=== PATIENT | male | born 1950 | race Caucasian/White ===

== ENCOUNTER 2017-12-06 20:33 | Observation (INO) | payer MEDICARE, OTHER ==
[2017-12-06] MEDS ORDERED: NA CHLORIDE 0.9% 1,000 ML ONE (21:34)
[2017-12-06 21:40] LABS: Absolute Lymphocytes (CBC) 1.6 K/uL (0.7-4.9); Absolute Monocytes 0.7 K/uL (0.1-1.3); Absolute Neutrophil 7.3 K/uL (1.8-8.0); Basophils % 0.9 % (0-1.3); Eosinophils % 1.3 % (0-4.4); Hematocrit 45.3 % (39.6-49.0); Lymphocytes % 16.4 % (15.3-44.8); MCH 29.4 pg (27.0-35.0); MCV 85.8 fL (80-100); MPV 7.4 fL (7.6-11.3); Monocytes % 7.4 % (3.3-12.3); RBC Red Blood Cell Count 5.28 M/uL (4.33-5.43)
[2017-12-06 21:59] LABS: Potassium 4.7 mEq/L (3.6-5.0)
[2017-12-06 22:05] LABS: Albumin 3.5 g/dL (3.2-5.5); Bilirubin Direct 0.4 mg/dL (0-0.2); Bilirubin Total 1.1 mg/dL (0.3-1.2); CKMB Creatine Kinase MB 1.4 ng/ml (0.3-4.0); Magnesium 2.1 mg/dL (1.8-2.5); Protein, Total 6.5 g/dL (6.0-8.3)
[2017-12-06] MEDS ORDERED: METRONIDAZOLE 500mg IVPB 500 MG/100 ML BAG IV ONE (22:23)
[2017-12-06] MEDS ORDERED: CEFTRIAXONE/SWI 1gm 1 GM/10 ML SYR ONE (22:23)
[2017-12-06] MEDS ORDERED: PANTOPRAZOLE 40 MG INJ ONE (22:23)
--- NOTE | 2017-12-06 22:45 | RAD REPORT ---
EXAM DESCRIPTION: RAD - Chest Single View - 12/06/2017 9:55 pm CLINICAL HISTORY: Abdominal pain, abdominal distention, chest pain COMPARISON: January 2017 TECHNIQUE: AP portable chest image was obtained 2148 hours . FINDINGS: No focal consolidation or mass identifiable. Lung markings are prominent but not clearly d ifferent from the comparison study. Heart and vasculature are normal. No pneumothorax or pleural effu arjun. Defibrillator is in place. No gross bony abnormality seen. No acute aortic findings suspected. IMPRESSION: No acute cardiopulmonary process. No significant change from the comparison study.
--- NOTE | 2017-12-06 22:57 | EDPHYS ---
Physician Documentation [facility] Name: Carlos Eduardo Macias Age: 67 yrs Sex: Male : 1950 Arrival Date: 12/06/2017 Time: 20:35 Bed 25 Private MD: ED Physician Leopoldo Fonseca HPI: 12/06 21:35 This 67 yrs old Male presents to ER via EMS with complaints of Abdominal Pain ken and rectal bleeding. 21:35 The patient presents with abdominal pain in the upper abdomen, in the lower abdomen. ken Onset: The symptoms/episode began/occurred 1 week(s) ago. The patient presents to the emergency department with rectal bleeding, a small amount, bright red blood with bowel movement, melena, with multiple such episodes. Onset: The symptoms/episode began/occurred 1 week(s) ago. Abdominal pain: located in the right upper quadrant, left upper quadrant, right lower quadrant and left lower quadrant. Modifying factors: The symptoms are alleviated by nothing, the symptoms are aggravated by nothing. Associated signs and symptoms: The patient has no apparent associated signs or symptoms. The symptoms do not radiate. Modifying factors: The symptoms are alleviated by nothing, the symptoms are aggravated by nothing. Historical: - Allergies: 20:41 PENICILLINS; fc - Home Meds: 20:41 aspirin 81 mg Oral TbEC 1 tab once daily [Active]; amiodarone 200 mg oral tab 1 tab fc once daily [Active]; pravastatin 80 mg oral tab 1 tab nightly [Active]; losartan 50 mg oral tab 1 tab once daily [Active]; Coreg 3.125 mg Oral tab 1 tab every 12 hours [Active]; 23:38 ezetimibe oral 10 MG oral 1 tab once daily [Active]; rk2 - PMHx: 20:41 High Cholesterol; Hypertension; Atrial Fib; CAD; fc - PSHx: 20:41 Cholecystectomy; Appendectomy; CABG; heart ablation; defib; fem pop; fc 23:38 extensive heart surgeries; rk2 - Immunization history:: Last tetanus immunization: up to date. - Social history:: Smoking status: Patient/guardian denies using tobacco, Patient uses alcohol, occasionally. - Family history:: not pertinent. ROS: 21:35 Constitutional: Negative for fever, chills, and weight loss, Eyes: Negative for injury, ken pain, redness, and discharge, ENT: Negative for injury, pain, and discharge, Neck: Negative for injury, pain, and swelling, Cardiovascular: Negative for chest pain, palpitations, and edema, Respiratory: Negative for shortness of breath, cough, wheezing, and pleuritic chest pain, Back: Negative for injury and pain, : Negative for injury, bleeding, discharge, and swelling, MS/Extremity: Negative for injury and deformity, Skin: Negative for injury, rash, and discoloration, Neuro: Negative for headache, weakness, numbness, tingling, and seizure, Psych: Negative for depression, anxiety, suicide ideation, homicidal ideation, and hallucinations, Allergy/Immunology: Negative for hives, rash, and allergies, Endocrine: Negative for neck swelling, polydipsia, polyuria, polyphagia, and marked weight changes, Hematologic/Lymphatic: Negative for swollen nodes, abnormal bleeding, and unusual bruising. 21:35 Abdomen/GI: Positive for abdominal pain, rectal bleeding. Exam: 21:35 Constitutional: This is a well developed, well nourished patient who is awake, alert, ken and in no acute distress. Head/Face: Normocephalic, atraumatic. Eyes: Pupils equal round and reactive to light, extra-ocular motions intact. Lids and lashes normal. Conjunctiva and sclera are non-icteric and not injected. Cornea within normal limits. Periorbital areas with no swelling, redness, or edema. ENT: Nares patent. No nasal discharge, no septal abnormalities noted. Tympanic membranes are normal and external auditory canals are clear. Oropharynx with no redness, swelling, or masses, exudates, or evidence of obstruction, uvula midline. Mucous membranes moist. Neck: Trachea midline, no thyromegaly or masses palpated, and no cervical lymphadenopathy. Supple, full range of motion without nuchal rigidity, or vertebral point tenderness. No Meningismus. Chest/axilla: Normal chest wall appearance and motion. Nontender with no deformity. No lesions are appreciated. Cardiovascular: Regular rate and rhythm with a normal S1 and S2. No gallops, murmurs, or rubs. Normal PMI, no JVD. No pulse deficits. Respiratory: Lungs have equal breath sounds bilaterally, clear to auscultation and percussion. No rales, rhonchi or wheezes noted. No increased work of breathing, no retractions or nasal flaring. Back: No spinal tenderness. No costovertebral tenderness. Full range of motion. Male : Normal genitalia with no discharge or lesions. Skin: Warm, dry with normal turgor. Normal color with no rashes, no lesions, and no evidence of cellulitis. MS/ Extremity: Pulses equal, no cyanosis. Neurovascular intact. Full, normal range of motion. Neuro: Awake and alert, GCS 15, oriented to person, place, time, and situation. Cranial nerves II-XII grossly intact. Motor strength 5/5 in all extremities. Sensory grossly intact. Cerebellar exam normal. Normal gait. Psych: Awake, alert, with orientation to person, place and time. Behavior, mood, and affect are within normal limits. 21:35 Abdomen/GI: Inspection: abdomen appears normal, Bowel sounds: normal, Palpation: mild abdominal tenderness, in the right upper quadrant, left upper quadrant, right lower quadrant and left lower quadrant, Rectal exam: Prostate: normal, rectal tone normal, Stool: guaiac positive, hemorrhoid(s), are not appreciated, mass, is not appreciated, swelling, is not appreciated, tenderness, is not appreciated. Vital Signs: 20:25 BP 168 / 83; Pulse 64; Resp 18; Temp 97.7(O); Pulse Ox 97% on R/A; Weight 63.5 kg (R); fc Height 5 ft. 6 in. (167.64 cm) (R); Pain 6/10; 21:30 BP 159 / 74; Pulse 60; Resp 17; Pulse Ox 96% on R/A; rk2 22:15 BP 151 / 86; Pulse 65; Resp 17; Pulse Ox 95% on R/A; rk2 12/07 00:45 BP 156 / 88; Pulse 65; Resp 17; Pulse Ox 96% on R/A; rk2 12/06 20:25 Body Mass Index 22.60 (63.50 kg, 167.64 cm) fc MDM: 12/06 20:45 Patient medically screened. [facility] 21:38 Data reviewed: vital signs, nurses notes, lab test result(s), EKG, radiologic studies, [facility] CT scan, plain films. 12/06 21:15 Order name: Basic Metabolic Panel; Complete Time: 22:53 [facility] 12/06 21:15 Order name: BNP; Complete Time: 22:53 [facility] 12/06 21:15 Order name: CBC with Diff; Complete Time: 22:53 [facility] 12/06 21:15 Order name: Ckmb; Complete Time: 22:53 [facility] 12/06 21:15 Order name: CPK; Complete Time: 22:53 [facility] 12/06 21:15 Order name: LFT's; Complete Time: 22:53 [facility] 12/06 21:15 Order name: Magnesium; Complete Time: 22:53 [facility] 12/06 21:15 Order name: PT-INR; Complete Time: 22:53 [facility] 12/06 21:15 Order name: Ptt, Activated; Complete Time: 22:53 [facility] 12/06 21:15 Order name: Troponin (emerg Dept Use Only); Complete Time: 22:53 [facility] 12/06 21:15 Order name: Lipase; Complete Time: 22:53 [facility] 12/06 21:15 Order name: Urine Culture [facility] 12/06 21:32 Order name: Type And Screen [facility] 12/07 00:40 Order name: Urine Dipstick--Ancillary (enter results) rust 12/06 21:15 Order name: XRAY Chest (1 view); Complete Time: 22:53 [facility] 12/06 21:15 Order name: EKG; Complete Time: 21:16 [facility] 12/06 21:15 Order name: Cardiac monitoring; Complete Time: 21:32 [facility] 12/06 21:15 Order name: EKG - Nurse/Tech; Complete Time: 21:41 [facility] 12/06 21:15 Order name: IV Saline Lock; Complete Time: 21:32 [facility] 12/06 21:15 Order name: Labs collected and sent; Complete Time: 21:32 [facility] 12/06 21:15 Order name: O2 Per Protocol; Complete Time: 21:32 [facility] 12/06 21:15 Order name: O2 Sat Monitoring; Complete Time: 21:32 [facility] 12/06 23:06 Order name: Abdomen EDMS 12/06 23:06 Order name: CONS Physician Consult EDMS Administered Medications: 21:36 Drug: NS 0.9% 1000 ml Route: IV; Rate: 125 ml/hr; Site: right hand; [facility] 12/07 00:33 Follow up: Response: No adverse reaction; IV Status: Infusion continued [facility] 12/06 22:30 Drug: ProTONIX 40 mg Route: IVP; Site: right hand; [facility] 12/07 00:33 Follow up: Response: No adverse reaction rk2 12/06 22:31 Drug: Rocephin - (cefTRIAXone) 1 grams Route: IVPB; Infused Over: 30 mins; Site: right rk2 hand; 22:31 Drug: Flagyl 500 mg Volume: 100 ml; Route: IVPB; Rate: 200 ml/hr; Infused Over: 30 rk2 mins; Site: right hand; 23:00 Follow up: Response: No adverse reaction; IV Status: Completed infusion rk2 Disposition: 12/06/17 22:57 Hospitalization ordered by Oliver Max for Observation. Preliminary diagnosis are Abdominal tenderness, Gastrointestinal hemorrhage, unspecified, Unspecified kidney failure. - Bed requested for Telemetry/MedSurg (observation). - Status is Observation. rk2 - Condition is Stable. - Problem is new. - Symptoms have improved. UTI on Admission? No Signatures: Dispatcher [employer] EDMS Leopoldo Fonseca MD MD cha Chretien, Felicia, RN RN Chiquita Cassidy RN RN Sandie Lockwood RN RN rk2 Corrections: (The following items were deleted from the chart) 22:32 21:32 Abdomen Pelvis W Con+CT.RAD.BRZ ordered. EDKS EDMS 23:03 22:57 Abdomen Pelvis W Con+CT.RAD.BRZ ordered. [facility] EDKS 23:12 22:57 Hospitalization Ordered by Oliver Max MD for Observation. Preliminary cg diagnosis is Abdominal tenderness; Gastrointestinal hemorrhage, unspecified; Unspecified kidney failure. Bed requested for Telemetry/MedSurg (observation). Status is Observation. Condition is Stable. Problem is new. Symptoms have improved. UTI on Admission? No. ken 23:39 20:41 Home Meds: ezetimibe oral oral 1 tab once daily; rk2 23:39 20:41 PSHx: extensive heart surgeries; rk2 12/07 00:50 12/06 23:12 12/06/2017 22:57 Hospitalization Ordered by Oliver Max MD for rk2 Observation. Preliminary diagnosis is Abdominal tenderness; Gastrointestinal hemorrhage, unspecified; Unspecified kidney failure. Bed requested for Telemetry/MedSurg (observation). Status is Observation. Condition is Stable. Problem is new. Symptoms have improved. UTI on Admission? No. cg
--- NOTE | 2017-12-06 22:57 | ER ---
Nurse's Notes [facility] Name: Carlos Eduardo Macias Age: 67 yrs Sex: Male : 1950 Arrival Date: 12/06/2017 Time: 20:35 Bed 25 Private MD: Diagnosis: Abdominal tenderness;Gastrointestinal hemorrhage, unspecified;Unspecified kidney failure Presentation: 12/06 20:25 Presenting complaint: Patient states: that since July he has been having on and off fc abd pain with dark rectal bleeding. Transition of care: patient was not received from another setting of care. Onset of symptoms was July 2017. Initial Sepsis Screen: Does the patient meet any 2 criteria? No. Patient's initial sepsis screen is negative. Does the patient have a suspected source of infection? No. Patient's initial sepsis screen is negative. Care prior to arrival: IV initiated. 20 GA, in the right wrist, Glucose check: 132. 20:25 Method Of Arrival: EMS: [facility] 20:25 Acuity: [facility] 3 Triage Assessment: 22:20 General: Appears in no apparent distress. well developed, well nourished, Behavior is rk2 calm, cooperative. 22:20 Pain: Complains of pain in ABD soft, non tender on palpation... pt. c/o generalized abd rk2 pain. Neuro: Level of Consciousness is alert, obeys commands, Oriented to person, place, time, situation. Cardiovascular: Rhythm is sinus bradycardia. Respiratory: Airway is patent Respiratory effort is even, unlabored, Respiratory pattern is regular, symmetrical. GI: Abdomen is flat, Abd is soft and non tender X 4 quads. Derm: Skin is pink, warm \T\ dry. Historical: - Allergies: 20:41 PENICILLINS; fc - Home Meds: 20:41 aspirin 81 mg Oral TbEC 1 tab once daily [Active]; amiodarone 200 mg oral tab 1 tab fc once daily [Active]; pravastatin 80 mg oral tab 1 tab nightly [Active]; losartan 50 mg oral tab 1 tab once daily [Active]; Coreg 3.125 mg Oral tab 1 tab every 12 hours [Active]; 23:38 ezetimibe oral 10 MG oral 1 tab once daily [Active]; rk2 - PMHx: 20:41 High Cholesterol; Hypertension; Atrial Fib; CAD; fc - PSHx: 20:41 Cholecystectomy; Appendectomy; CABG; heart ablation; defib; fem pop; fc 23:38 extensive heart surgeries; rk2 - Immunization history:: Last tetanus immunization: up to date. - Social history:: Smoking status: Patient/guardian denies using tobacco, Patient uses alcohol, occasionally. - Family history:: not pertinent. Screenin:25 Abuse screen: Denies threats or abuse. Nutritional screening: No deficits noted. fc Tuberculosis screening: No symptoms or risk factors identified. Fall Risk None identified. Assessment: 23:20 Reassessment: Patient appears in no apparent distress at this time. No changes from rk2 previously documented assessment. Patient and/or family updated on plan of care and expected duration. Pain level reassessed. No needs voiced \T\ this time... iv fluids infusing. Vital Signs: 20:25 BP 168 / 83; Pulse 64; Resp 18; Temp 97.7(O); Pulse Ox 97% on R/A; Weight 63.5 kg (R); fc Height 5 ft. 6 in. (167.64 cm) (R); Pain 6/10; 21:30 BP 159 / 74; Pulse 60; Resp 17; Pulse Ox 96% on R/A; rk2 22:15 BP 151 / 86; Pulse 65; Resp 17; Pulse Ox 95% on R/A; rk2 12/07 00:45 BP 156 / 88; Pulse 65; Resp 17; Pulse Ox 96% on R/A; rk2 12/06 20:25 Body Mass Index 22.60 (63.50 kg, 167.64 cm) fc ED Course: 12/06 20:25 Arm band placed on Patient placed in an exam room, Patient notified of wait time. fc 20:25 Patient has correct armband on for positive identification. Placed in gown. Bed in low fc position. Call light in reach. 20:35 Patient arrived in ED. ds1 20:37 Triage completed. fc 20:38 Maintain EMS IV. Dressing intact. Good blood return noted. Site clean \T\ dry. Gauge \T\ fc site: 20 gauge to right wrist. 20:42 Sandie Lockwood RN is Primary Nurse. rk2 20:45 Leopoldo Fonseca MD is Attending Physician. ken 21:40 EKG done, by ED staff, reviewed by Leopoldo Fonseca MD. dh3 21:50 XRAY Chest (1 view) In Process Unspecified. EDDE 21:50 X-ray completed. Portable x-ray completed in exam room. Patient tolerated procedure kc2 well. 22:42 Inserted saline lock: 20 gauge in right antecubital area, using aseptic technique. 3 22:55 Oliver Max MD is Hospitalizing Provider. [facility] 12/07 00:48 No provider procedures requiring assistance completed. Patient admitted, IV remains in rk2 place. 00:51 Abdomen Sent. rk2 Administered Medications: 12/06 21:36 Drug: NS 0.9% 1000 ml Route: IV; Rate: 125 ml/hr; Site: right hand; 2 12/07 00:33 Follow up: Response: No adverse reaction; IV Status: Infusion continued [facility] 12/06 22:30 Drug: ProTONIX 40 mg Route: IVP; Site: right hand; rk2 12/07 00:33 Follow up: Response: No adverse reaction [facility] 12/06 22:31 Drug: Rocephin - (cefTRIAXone) 1 grams Route: IVPB; Infused Over: 30 mins; Site: right rk2 hand; 22:31 Drug: Flagyl 500 mg Volume: 100 ml; Route: IVPB; Rate: 200 ml/hr; Infused Over: 30 rk2 mins; Site: right hand; 23:00 Follow up: Response: No adverse reaction; IV Status: Completed infusion rk2 Outcome: 22:57 Decision to Hospitalize by Provider. [facility] 12/07 00:48 Admitted to Tele accompanied by tech, via wheelchair. rk2 Condition: good Instructed on the need for admit. 00:50 Patient left the ED. rk2 Signatures: Dispatcher [employer] EDMS Leopoldo Fonseca MD MD cha Chretien, Felicia, RN RN Deloris Parada1 Cathy Jackson 2 Zulema Oliveira 3 Sandie Lockwood RN RN rk2 Corrections: (The following items were deleted from the chart) 12/06 20:39 20:25 Care prior to arrival: None. [facility] 23:39 20:41 Home Meds: ezetimibe oral oral 1 tab once daily; rk2 23:39 20:41 PSHx: extensive heart surgeries; rk2
[2017-12-06] MEDS ORDERED: ACETAMINOPHEN 500 MG TAB PO PRN (23:19)
[2017-12-06] MEDS ORDERED: MORPHINE 4 MG/ML SYR IV PRN (23:19)
[2017-12-06] MEDS ORDERED: ONDANSETRON 4 MG/2 ML VIAL IV PRN (23:19)
[2017-12-06] MEDS ORDERED: NA CHLORIDE 0.9% 250 ML IV SCH (23:45)
[2017-12-07 01:10] VITALS: BMI 22.6
[2017-12-07] MEDS: NA CHLORIDE 0.9% 1,000 ML IV SCH ×3 (01:32→17:09)
[2017-12-07 01:41] LABS: Urine Blood NEGATIVE (NEG); Urine Glucose NEGATIVE (NEG); Urine Protein NEGATIVE (NEG); Urine pH 6.5 (5.0-7.0)
[2017-12-07 01:47] LABS: Hematocrit 47.5 % (39.6-49.0)
--- NOTE | 2017-12-07 04:20 | P.HP ---
Certification for Inpatient Patient admitted to: Observation With expected LOS: <2 Midnights Patient will require the following post-hospital care: None Practitioner: I am a practitioner with admitting privileges, knowledge of patient current condition, hospital course, and medical plan of care. Services: Services provided to patient in accordance with Admission requirements found in Title 42 Section 412.3 of the Code of Federal Regulations Patient History Date of Service: 12/06/17 Reason for admission: Abdominal pain and distension History of Present Illness: Patient is a 67-year-old gentleman who came into the hospital with abdominal pain and discomfort. Patient has been having the symptoms for quite a while. He was seen a few months ago with melanotic stools. He states that he was supposed to follow up with Gastroenterology. He went to his primary care provider to get a referral. However, his primary care provider would no longer see him. He went home and was not able to get to feeling better. He finally came into the emergency room for further evaluation. In the emergency room, his workup has been fairly unremarkable. He has had some dark melanotic stools. At this time because of his symptoms will go ahead and admit him to the hospital in make him NPO for gastroenterology evaluation. Allergies Penicillins Adverse Reaction (Severe, Verified 12/21/15 00:06) Anaphylaxis Home Medications: Losartan Potassium 50 mg PO DAILY 12/21/15 Pravastatin Sodium 80 mg PO BEDTIME 12/21/15 Amiodarone HCl 200 mg PO DAILY 12/07/17 Aspirin Chewable [Aspirin Chewable*] 1 tab PO DAILY 12/07/17 Carvedilol 1 tab PO BIDWM 12/07/17 Ezetimibe 1 tab PO DAILY 12/07/17 - Past Medical/Surgical History Has patient received pneumonia vaccine in the past: No Diabetic: No -: htn -: Afib -: CAD -: hypercholesterolemia -: double bypass -: appy -: defib. - Family History Father Medical History: Heart disease - Social History Smoking Status: Former smoker Alcohol use: Yes CD- Drugs: No Caffeine use: Yes Place of Residence: Home Review of Systems 10-point ROS is otherwise unremarkable Physical Examination - Vital Signs Temperature: 97.6 F Blood Pressure: 156/77 Pulse: 71 Respirations: 20 Pulse Ox (%): 91 - Physical Exam General: Alert, In no apparent distress, Oriented x3 HEENT: Atraumatic, PERRLA, Mucous membr. moist/pink, EOMI, Sclerae nonicteric Neck: Supple, 2+ carotid pulse no bruit, No LAD, Without JVD or thyroid abnormality Respiratory: Clear to auscultation bilaterally, Normal air movement Cardiovascular: Regular rate/rhythm, Normal S1 S2, No murmurs Gastrointestinal: Normal bowel sounds, Soft and benign, No rebound, No guarding , Distended, Tenderness Musculoskeletal: No clubbing, No swelling, No tenderness Integumentary: No rashes Neurological: Normal gait, Normal speech, Normal strength at 5/5 x4 extr, Normal tone, Sensation intact, Cranial nerves 3-12 intact, Normal affect Lymphatics: No axilla or inguinal lymphadenopathy - Studies Laboratory Data (last 24 hrs) 12/06/17 21:28: PT 11.8, INR 1.00, APTT 26.7 12/06/17 21:28: WBC 9.9, Hgb 15.5, Hct 45.3, Plt Count 187 12/06/17 21:28: B-Natriuretic Peptide 30 12/06/17 21:28: Sodium 138, Potassium 4.7, BUN 14, Creatinine 1.31 H, Glucose 134 H, Magnesium 2.1, Total Bilirubin 1.1, AST 49 H, ALT 47, Alkaline Phosphatase 77, Lipase 29 Assessment & Plan - Problems (Diagnosis) (1) Abdominal pain Current Visit: Yes Status: Acute (2) Melanotic stools Current Visit: Yes Status: Acute (3) Atrial fibrillation Current Visit: Yes Status: Acute (4) Dyslipidemia Current Visit: Yes Status: Acute - Plan 1. Continue with IV hydration 2. Continue with IV antibiotics 3. Continue with pain control 4. NPO 5. GI consultation; evaluation per their recommendation 6. Serial H&H, and we will monitor CBC, BMP, LFTs and lipase along with electrolytes. 7. GI and DVT prophylaxis - Advance Directives Does patient have a Living Will: No Does patient have a Durable POA for Healthcare: No - Code Status/Comfort Care Code Status Assessed: Yes Code Status: Full Code Critical Care: No Time Spent Managing PTS Care (In Minutes): 50
[2017-12-07 06:07] LABS: Absolute Lymphocytes (CBC) 1.1 K/uL (0.7-4.9); Absolute Monocytes 0.7 K/uL (0.1-1.3); Basophils % 0.8 % (0-1.3); Eosinophils % 0.4 % (0-4.4); Hematocrit 50.2 % (39.6-49.0); Lymphocytes % 11.9 % (15.3-44.8); MCH 28.8 pg (27.0-35.0); MCV 88.7 fL (80-100); MPV 8.1 fL (7.6-11.3); Monocytes % 7.9 % (3.3-12.3); RBC Red Blood Cell Count 5.66 M/uL (4.33-5.43)
[2017-12-07 06:11] LABS: Protime INR 0.97
--- NOTE | 2017-12-07 06:39 | EKG ---
Test Date: 2017-12-06 Test Time: 21:33:29 Radio Journalist: DI MEASUREMENT RESULTS: Intervals: Rate: 58 AR: 206 QRSD: 98 QT: 488 QTc: 479 [place]: P: 47 AR: 206 QRS: 22 T: 100 INTERPRETIVE STATEMENTS: Sinus bradycardia Incomplete right bundle branch block Septal infarct, age undetermined Abnormal ECG Compared to ECG 02/24/2017 08:36:46 Incomplete right bundle-branch block now present Myocardial infarct finding now present Sinus rhythm no longer present Ventricular premature complex(es) no longer present Left-axis deviation no longer present Electronically Signed On 12-07-17 06:39:46 CDT by Jose Weinstein
[2017-12-07] MEDS: CARVEDILOL 3.125 MG TAB PO SCH ×2 (08:00→17:09)
[2017-12-07] MEDS ORDERED: PNEUMOCOCCAL VACCINE 0.5 ML IMVAC ONE (08:00)
[2017-12-07] MEDS ORDERED: Morphine 2 MG/2 ML SYR IV PRN (08:05)
--- NOTE | 2017-12-07 08:18 | RAD REPORT ---
EXAM DESCRIPTION: CT - Abdomen Pelvis Wo Contrast - 12/07/2017 1:49 am CLINICAL HISTORY: Abdominal pain. COMPARISON: 07/08/2016, 09/20/2016 TECHNIQUE: CT imaging of the abdomen and pelvis was performed without contrast. Solid organ and vasc ular assessment is limited due to lack of IV contrast. All CT scans are performed using dose optimization technique as appropriate and may include automated exposure control or mA/KV adjustment according to patient size. FINDINGS: The lower lung salazar are clear.Pacemaker wires are present. A small hiatal hernia. The liver, spleen, pancreas, adrenal glands and kidneys are within normal limits for a limited non-co ntrast examination.Cholecystectomy clips. No bowel obstruction, free air, free fluid or abscess. Colonic diverticulosis without diverticulitis. The appendix appears surgically absent. Mild thickening of the transverse and descending colon could indicate a mild colitis. Old pelvic fractures on the right seen. No acute fracture demonstrated. Surgical clips noted left ing uinal region. IMPRESSION: Mild colitis of the transverse and descending colon is possible. A limited non-contrast examination was performed as detailed.
[2017-12-07] MEDS: PANTOPRAZOLE 40 MG INJ IVP SCH ×2 (08:45→20:41)
[2017-12-07] MEDS: EZETIMIBE 10 MG TAB PO SCH (08:46)
[2017-12-07] MEDS: LOSARTAN POTASSIUM 50 MG TABLET PO SCH (08:46)
[2017-12-07] MEDS: AMIODARONE HCL 200 MG TAB PO SCH (08:46)
[2017-12-07] MEDS: ASPIRIN 81 MG CHEWABLE TABLET PO SCH (08:46)
[2017-12-07 09:14] LABS: Hematocrit 48.5 % (39.6-49.0)
--- NOTE | 2017-12-07 10:49 | P.PN ---
Subjective Date of Service: 12/07/17 Primary Care Provider: None Chief Complaint: Abdominal pain and distension Subjective: Other (Patient still with abdominal pain. Patient did have a bowel movement. Melena noted.) Physical Examination - Vital Signs Temperature: 97.1 F Blood Pressure: 141/75 Pulse: 61 Respirations: 16 Pulse Ox (%): 90 - Physical Exam General: Alert, In no apparent distress, Oriented x3, Cooperative HEENT: Atraumatic Neck: Supple Respiratory: Clear to auscultation bilaterally, Normal air movement Cardiovascular: Normal pulses, Regular rate/rhythm Gastrointestinal: Normal bowel sounds, Soft and benign, Non-distended, No masses , No rebound, No guarding, Tenderness (Pain to the abdomen region, diffuse) Musculoskeletal: No erythema, No tenderness, No warmth Integumentary: No erythema, No warmth, No cyanosis Neurological: Normal speech, Normal strength at 5/5 x4 extr, Normal tone, Normal affect Lymphatics: No axilla or inguinal lymphadenopathy - Studies Laboratory Data (last 24 hrs) 12/06/17 21:28: PT 11.8, INR 1.00, APTT 26.7 12/06/17 21:28: WBC 9.9, Hgb 15.5, Hct 45.3, Plt Count 187 12/06/17 21:28: B-Natriuretic Peptide 30 12/06/17 21:28: Sodium 138, Potassium 4.7, BUN 14, Creatinine 1.31 H, Glucose 134 H, Magnesium 2.1, Total Bilirubin 1.1, AST 49 H, ALT 47, Alkaline Phosphatase 77, Lipase 29 Medications List Reviewed: Yes Assessment & Plan - Problems (Diagnosis) (1) Colitis Current Visit: Yes Status: Acute Plan: CT scan reviewed. CT scan shows mild colitis of the transverse and descending colon. Will start Rocephin and Flagyl. Will verify allergies with pharmacy. Will consider advancing diet to clears if improved. GI consulted to further assess. Will monitor hemoglobin. Hemoglobin stable at this time. (2) Hypertension Current Visit: Yes Status: Chronic Plan: Will continue with his medication. Qualifiers: Hypertension type: essential hypertension Qualified Code(s): I10 - Essential (primary) hypertension (3) Abdominal pain Current Visit: Yes Status: Acute Plan: Likely from colitis. Continue with IV antibiotic therapy. Will continue IV fluids. GI consulted. Await further recommendation. Qualifiers: Abdominal location: generalized Qualified Code(s): R10.84 - Generalized abdominal pain (4) Atrial fibrillation Current Visit: Yes Status: Chronic Plan: Will continue with his medication. Qualifiers: Atrial fibrillation type: chronic Qualified Code(s): I48.2 - Chronic atrial fibrillation (5) Dyslipidemia Current Visit: Yes Status: Chronic Plan: Will continue with his medication. (6) Melanotic stools Current Visit: Yes Status: Acute Plan: Will continue with above plan of care. Will hold DVT prophylaxis at this time due to melanotic stools. Discharge Plan: Home Plan to discharge in: 72 Hours Time Spent Managing Pts Care (In Minutes): 55
[2017-12-07] MEDS ORDERED: CEFTRIAXONE 1 GM/NS 50 ML 1 GM/50 ML BAG IV SCH (11:30)
[2017-12-07 11:54] LABS: Urine Appearance CLEAR; Urine Bilirubin NEGATIVE (NEG); Urine Blood NEGATIVE (NEG); Urine Color YELLOW; Urine Glucose NEGATIVE (NEG); Urine Microscopic Reflex NO UMIC; Urine Protein NEGATIVE (NEG); Urine Urobilinogen 0.2 mg/dL (0.2-1.0); Urine pH 6.5 (5.0-7.0)
[2017-12-07] MEDS: CEFTRIAXONE/SWI 1gm 1 GM/10 ML SYR IV SCH (11:59)
[2017-12-07] MEDS: METRONIDAZOLE 500mg IVPB 500 MG/100 ML BAG IV SCH (17:09)
[2017-12-07] MEDS ORDERED: ATORVASTATIN 10 MG TAB PO SCH (21:00)
[2017-12-08] MEDS: METRONIDAZOLE 500mg IVPB 500 MG/100 ML BAG IV SCH ×2 (00:36→09:10)
[2017-12-08] MEDS: NA CHLORIDE 0.9% 1,000 ML IV SCH (05:32)
[2017-12-08 07:55] LABS: Absolute Monocytes 0.7 K/uL (0.1-1.3); Absolute Neutrophil 5.5 K/uL (1.8-8.0); Basophils % 3.8 % (0-1.3); Eosinophils % 3.4 % (0-4.4); Hematocrit 47.4 % (39.6-49.0); Lymphocytes % 13.2 % (15.3-44.8); MCH 28.8 pg (27.0-35.0); MCV 87.6 fL (80-100); MPV 7.6 fL (7.6-11.3); Monocytes % 9.5 % (3.3-12.3); RBC Red Blood Cell Count 5.42 M/uL (4.33-5.43)
[2017-12-08 08:32] LABS: Albumin 3.2 g/dL (3.2-5.5); Bilirubin Direct 0.1 mg/dL (0-0.2); Bilirubin Total 0.5 mg/dL (0.3-1.2); Magnesium 1.8 mg/dL (1.8-2.5); Potassium 4.2 mEq/L (3.6-5.0); Protein, Total 5.8 g/dL (6.0-8.3)
[2017-12-08 08:42] LABS: Blood Morphology Comment NOT SEEN (NOT SEEN); Platelet Estimate ADEQ; Urine White Blood Cell Casts OK
[2017-12-08 08:44] VITALS: O2SAT 93
[2017-12-08] MEDS: EZETIMIBE 10 MG TAB PO SCH (09:09)
[2017-12-08] MEDS: LOSARTAN POTASSIUM 50 MG TABLET PO SCH (09:09)
[2017-12-08] MEDS: ASPIRIN 81 MG CHEWABLE TABLET PO SCH (09:09)
[2017-12-08] MEDS: CARVEDILOL 3.125 MG TAB PO SCH (09:09)
[2017-12-08] MEDS: CEFTRIAXONE/SWI 1gm 1 GM/10 ML SYR IV SCH (09:10)
[2017-12-08] MEDS: PANTOPRAZOLE 40 MG INJ IVP SCH (09:10)
[2017-12-08] MEDS: AMIODARONE HCL 200 MG TAB PO SCH (09:10)
[2017-12-08] MEDS ORDERED: MAGNESIUM SULFATE 1 gm IVPB 1 GM/100 ML BAG IV ONE (09:24)
--- NOTE | 2017-12-08 10:41 | P.DS ---
Admission Date: 12/06/17 Discharge Date: 12/08/17 Primary Care Provider: None Disposition: ROUTINE DISCHARGE Reason for Admission: Abdominal pain and distension Consultations: GI-Dr. Cosme Procedures: CT scan: FINDINGS: The lower lung salazar are clear.Pacemaker wires are present. A small hiatal hernia. The liver, spleen, pancreas, adrenal glands and kidneys are within normal limits for a limited non-contrast examination.Cholecystectomy clips. No bowel obstruction, free air, free fluid or abscess. Colonic diverticulosis without diverticulitis. The appendix appears surgically absent. Mild thickening of the transverse and descending colon could indicate a mild colitis. Old pelvic fractures on the right seen. No acute fracture demonstrated. Surgical clips noted left inguinal region. IMPRESSION: Mild colitis of the transverse and descending colon is possible. - Problems (1) Colitis Onset Date: 12/07/17 Current Visit: Yes Status: Acute (2) Hypertension Onset Date: 12/07/17 Current Visit: Yes Status: Chronic Qualifiers: Hypertension type: essential hypertension Qualified Code(s): I10 - Essential (primary) hypertension (3) Abdominal pain Onset Date: 12/07/17 Current Visit: Yes Status: Acute Qualifiers: Abdominal location: generalized Qualified Code(s): R10.84 - Generalized abdominal pain (4) Atrial fibrillation Onset Date: 12/07/17 Current Visit: Yes Status: Chronic Qualifiers: Atrial fibrillation type: chronic Qualified Code(s): I48.2 - Chronic atrial fibrillation (5) Dyslipidemia Onset Date: 12/07/17 Current Visit: Yes Status: Chronic (6) Melanotic stools Onset Date: 12/07/17 Current Visit: Yes Status: Acute (7) Hyperlipemia Current Visit: Yes Status: Chronic Qualifiers: Hyperlipidemia type: unspecified Qualified Code(s): E78.5 - Hyperlipidemia , unspecified (8) Hiatal hernia with GERD Current Visit: Yes Status: Chronic Brief History of Present Illness: 67-year-old male presented to the emergency room with abdominal pain and history of melenic stools. Patient was in the process of seeing his PCP and possibly getting referral to GI. He came into the ER for further evaluation. CT scan showed colitis to the transverse and descending colon. Patient was admitted for treatment. Patient with history of hypertension, atrial fibrillation, and hyperlipidemia. Hospital Course: During the course of his stay the patient's condition improved. Abdominal pain resolved. As mentioned previously CT scan showed mild descending and transverse colitis. Patient was treated with IV antibiotic therapy. At discharge he was able tolerate his diet. GI was consulted. No intervention was needed. At discharge he did not have any significant abdominal pain, nausea or vomiting. At discharge patient will continue with Ceftin 250 mg 1 pill twice daily and Flagyl 500 mg 1 pill 3 times a day for 7 days. Recommendation is for the patient to follow up with GI in 2-4 weeks. Patient will need colonoscopy in 4-6 weeks. Education on colitis will be provided. Patient has atrial fibrillation. Patient will continue with amiodarone 200 mg 1 pill daily and aspirin 81 mg daily. Patient will follow up with cardiology as directed. Patient has hypertension. Patient will continue with his medication-carvedilol 3.125 mg 1 pill twice daily and losartan 50 mg 1 pill once daily. Recommendation is to maintain blood pressures less 150/80. Further adjustment can be done by his PCP. Patient has hyperlipidemia. Patient will continue with his medication-Lipitor 80 mg 1 pill daily and Zetia 10 mg [address] scan also identified hiatal hernia. Patient likely has GERD is well. Patient has been started on Protonix 40 mg 1 pill once daily. Patient will follow up with GI to further evaluate and address. Vital Signs/Physical Exam: Temp Pulse Resp BP Pulse Ox 98.6 F 61 18 120/63 94 12/08/17 08:00 12/08/17 09:09 12/08/17 08:00 12/08/17 09:09 12/08/17 08:00 General: Alert, In no apparent distress, Oriented x3, Cooperative HEENT: Atraumatic, Mucous membr. moist/pink Neck: Supple, No Thyromegaly Respiratory: Clear to auscultation bilaterally, Normal air movement Cardiovascular: Normal pulses, Regular rate/rhythm Gastrointestinal: Normal bowel sounds, Soft and benign, Non-distended, No tenderness, No masses, No rebound, No guarding Musculoskeletal: No erythema, No tenderness, No warmth Integumentary: No tenderness/swelling, No erythema, No warmth, No cyanosis Neurological: Normal speech, Normal strength at 5/5 x4 extr, Normal tone, Normal affect Lymphatics: No axilla or inguinal lymphadenopathy Laboratory Data at Discharge: WBC 7.8 K/uL (4.3-10.9) 12/08/17 07:24 Hgb 15.6 g/dL (13.6-17.9) 12/08/17 07:24 Hct 47.4 % (39.6-49.0) 12/08/17 07:24 Plt Count 168 K/uL (152-406) 12/08/17 07:24 PT 11.5 SECONDS (9.5-12.5) 12/07/17 05:25 INR 0.97 12/07/17 05:25 APTT 28.5 SECONDS (24.3-36.9) 12/07/17 05:25 Sodium 139 mEq/L (135-145) 12/08/17 07:24 Potassium 4.2 mEq/L (3.6-5.0) 12/08/17 07:24 BUN 8 mg/dL (6-20) 12/08/17 07:24 Creatinine 1.16 mg/dL (0.61-1.24) 12/08/17 07:24 Glucose 100 mg/dL (65-120) 12/08/17 07:24 Magnesium 1.8 mg/dL (1.8-2.5) 12/08/17 07:24 Total Bilirubin 0.5 mg/dL (0.3-1.2) 12/08/17 07:24 AST 35 IU/L (10-42) 12/08/17 07:24 ALT 41 IU/L (10-60) 12/08/17 07:24 Alkaline Phosphatase 69 IU/L (42-121) 12/08/17 07:24 B-Natriuretic Peptide 30 pg/ml (<=100) 12/06/17 21:28 Lipase 29 U/L (22-51) 12/06/17 21:28 Home Medications: Losartan Potassium 50 mg PO DAILY 12/21/15 Pravastatin Sodium 80 mg PO BEDTIME 12/21/15 Amiodarone HCl 200 mg PO DAILY 12/07/17 Aspirin Chewable [Aspirin Chewable*] 1 tab PO DAILY 12/07/17 Carvedilol 1 tab PO BIDWM 12/07/17 Ezetimibe 1 tab PO DAILY 12/07/17 Cefuroxime [Ceftin] 250 mg PO BID #14 tab 12/08/17 Metronidazole [Flagyl] 500 mg PO Q8H #21 tablet 12/08/17 Pantoprazole [Protonix Tab] 40 mg PO DAILY #30 tab 12/08/17 New Medications: Cefuroxime [Ceftin] 250 mg PO BID #14 tab Metronidazole [Flagyl] 500 mg PO Q8H #21 tablet Pantoprazole [Protonix Tab] 40 mg PO DAILY #30 tab Patient Discharge Instructions: 1. Patient will follow up with a PCP in 1 week to establish care and follow up this hospitalization. 2. Patient presented with abdominal pain. Patient found to have mild descending and transverse colitis. Patient was treated with IV antibiotic therapy. At discharge he was able tolerate his diet. No pain noted. Patient evaluated by GI. No intervention needed at this time. At discharge patient will continue with Ceftin 250 mg 1 pill twice daily and Flagyl 500 mg 1 pill 3 times a day for 7 days. Recommendation is for the patient to follow up with GI in 2-4 weeks. Patient will need colonoscopy in 4-6 weeks. Education on colitis will be provided. 3. Patient has atrial fibrillation. Patient will continue with amiodarone 200 mg 1 pill daily. Patient will follow up with cardiology as directed. 4. Patient has hypertension. Patient will continue with his medication-carvedilol 3.125 mg 1 pill twice daily and losartan 50 mg 1 pill once daily. Recommendation is to maintain blood pressures less 150/80. Further adjustment can be done by his PCP. 5. Patient has hyperlipidemia. Patient will continue with his medication-Lipitor 80 mg 1 pill daily and Zetia 10 mg [address] scan also identified hiatal hernia. Patient likely has GERD as well. Patient has been started on Protonix 40 mg 1 pill once daily. Patient will follow up with GI to further evaluate and address. his PCP in 1 week to follow up this hospitalization. Diet: AHA Activity: Ad jane Time spent managing pt's care (in minutes): 55
[2017-12-08] MEDS ORDERED: CEFUROXIME 250 MG TAB PO ONE (11:15)
[2017-12-08 12:04] VITALS: BP 112/61; TEMP 99.1
[2017-12-08] MEDS ORDERED: PNEUMOCOCCAL VACCINE 0.5 ML IMVAC ONE (13:00)
== END 2017-12-08 13:39 | disposition home or self-care (01) ==
LOC: ER 20:33 → ERHOLD 23:10 → 4TH 23:54
PROVIDERS: ADMIT Hospitalist; ATTEND Hospitalist
DX: K52.9 Noninfective gastroenteritis and colitis, unspecified (principal); K92.1 Melena; K21.9 Gastro-esophageal reflux disease without esophagitis; K44.9 Diaphragmatic hernia without obstruction or gangrene; E78.5 Hyperlipidemia, unspecified; I10 Essential (primary) hypertension; I48.91 Unspecified atrial fibrillation; Z23 Encounter for immunization
CPT/HCPCS: 36415 ×2; 71045; 74176; 80048 ×2; 80076 ×2; 81003 ×2; 82550; 82553; 83690; 83735 ×2; 83880; 84484; 85014 ×2; 85018 ×2; 85025 ×3; 85610 ×2; 85730 ×2; 86850; 86900; 86901; 87086 ×2; 87088 ×2; 90670; 93005; 96361; 96365; 96375; 99285; C9113 ×4; G0009; G0378 ×2; J0696 ×4; J2405; J3475; J7030 ×5

== ENCOUNTER 2018-05-01 23:59 | Observation (INO) | payer MEDICARE ==
[2018-05-02] MEDS ORDERED: NA CHLORIDE 0.9% 1,000 ML ONE (00:14)
[2018-05-02] MEDS ORDERED: METOPROLOL TARTRATE 5 MG/5 ML INJ IV ONE (00:14)
[2018-05-02 00:26] LABS: Absolute Lymphocytes (CBC) 2.5 K/uL (0.7-4.9); Absolute Monocytes 1.1 K/uL (0.1-1.3); Absolute Neutrophil 6.6 K/uL (1.8-8.0); Basophils % 0.2 % (0-1.3); Eosinophils % 2.5 % (0-4.4); Hematocrit 48.3 % (39.6-49.0); Lymphocytes % 23.8 % (15.3-44.8); MCV 86.8 fL (80-100); MPV 7.7 fL (7.6-11.3); Monocytes % 10.7 % (3.3-12.3); Protime INR 0.99; RBC Red Blood Cell Count 5.57 M/uL (4.33-5.43)
[2018-05-02] MEDS ORDERED: ENOXAPARIN 60 MG/0.6 ML SQ ONE (00:39)
[2018-05-02 01:09] LABS: ALT/SGPT 20 U/L (12-78); AST/SGOT 20 U/L (15-37); Albumin 3.6 g/dL (3.4-5.0); Alkaline Phosphatase 84 U/L (45-117); BUN Blood Urea Nitrogen 15 mg/dL (7-18); Bicarbonate 22 mmol/L (21-32); Bilirubin Direct 0.1 mg/dL (0-0.2); Bilirubin Total 0.4 mg/dL (0.2-1.0); Glucose Level 103 mg/dL (74-106); Magnesium 2.3 mg/dL (1.8-2.4); NT PRO-BNP 150 pg/mL (<125); Protein, Total 7.3 g/dL (6.4-8.2); Sodium Level 139 mmol/L (136-145); Troponin (Emerg Dept Use Only) < 0.02 ng/mL (0.0-0.045)
--- NOTE | 2018-05-02 01:23 | ER ---
Nurse's Notes [facility] Name: Carlos Eduardo Macias Age: 67 yrs Sex: Male : 1950 Arrival Date: 05/02/2018 Time: 00:02 Bed 2 Private MD: Diagnosis: Palpitations;Abnormal electrocardiogram [ECG] [EKG] Presentation: 05/01 23:55 Presenting complaint: Patient states: that for the past 2 months he has been having fc issues with irregular heart beat. hx of AFib. Over the past 2 days his rate has gotten higher and he just got worried. Denies any nausea, vomiting, or shortness of breath. Transition of care: patient was not received from another setting of care. Onset of symptoms was January 2018. Risk Assessment: Do you want to hurt yourself or someone else? Patient reports no desire to harm self or others. Initial Sepsis Screen: Does the patient meet any 2 criteria? No. Patient's initial sepsis screen is negative. Does the patient have a suspected source of infection? No. Patient's initial sepsis screen is negative. Care prior to arrival: None. 23:55 Method Of Arrival: Ambulatory fc 23:55 Acuity: CHRISTOF[facility] 3 fc Historical: - Allergies: 05/02 00:11 PENICILLINS; fc - Home Meds: 00:11 amiodarone 200 mg Oral tab 1 tab once daily [Active]; aspirin 81 mg Oral TbEC 1 tab fc once daily [Active]; Coreg 3.125 mg Oral tab 1 tab every 12 hours [Active]; losartan 50 mg Oral tab 1 tab once daily [Active]; pravastatin 80 mg Oral tab 1 tab nightly [Active]; - PMHx: 00:11 Atrial Fib; Hypertension; High Cholesterol; CAD; Myocardial infarction; fc - PSHx: 00:11 Cholecystectomy; Appendectomy; CABG; heart ablation; defib; fem pop; extensive heart fc surgeries; - Immunization history:: Last tetanus immunization: unknown, Flu vaccine is not up to date. - Social history:: Smoking status: Patient/guardian denies using tobacco. - Ebola Screening: : Patient negative for fever greater than or equal to 101.5 degrees Fahrenheit, and additional compatible Ebola Virus Disease symptoms Patient denies exposure to infectious person Patient denies travel to an Ebola-affected area in the 21 days before illness onset. Screenin/30 23:55 Abuse screen: Denies threats or abuse. Nutritional screening: No deficits noted. fc Tuberculosis screening: No symptoms or risk factors identified. Fall Risk None identified. Assessment: 05/02 00:10 General: Appears in no apparent distress. Behavior is calm, cooperative, appropriate ea for age. Pain: Denies pain. Neuro: Level of Consciousness is awake, alert, obeys commands, Oriented to person, place, time, situation. Cardiovascular: Heart tones S1 S2 present Patient's skin is warm and dry. Respiratory: Airway is patent Respiratory effort is even, unlabored, Respiratory pattern is regular, symmetrical, Breath sounds are clear bilaterally. GI: No signs and/or symptoms were reported involving the gastrointestinal system. : No signs and/or symptoms were reported regarding the genitourinary system. Derm: Skin is pink, warm \T\ dry. 01:41 Reassessment: Patient appears in no apparent distress at this time. No changes from ak1 previously documented assessment. Patient and/or family updated on plan of care and expected duration. Pain level reassessed. Patient is alert, oriented x 3, equal unlabored respirations, skin warm/dry/pink. Patient denies pain at this time. Patient states symptoms have improved. 02:43 Reassessment: Patient and/or family updated on plan of care and expected duration. Pain ea level reassessed. Patient is alert, oriented x 3, equal unlabored respirations, skin warm/dry/pink. Patient denies pain at this time. Vital Signs: 05/01 23:55 BP 117 / 91; Pulse 136; Resp 20; Temp 97.6(O); Pulse Ox 95% on R/A; Weight 64.86 kg fc (R); Height 5 ft. 6 in. (167.64 cm) (R); Pain 0/10; 05/02 00:11 BP 119 / 77; Pulse 129; Resp 20; Pulse Ox 96% on R/A; Pain 0/10; ea 00:24 BP 108 / 70; Pulse 66; Resp 17; Pulse Ox 95% on 2 lpm NC; ea 01:42 BP 115 / 82; Pulse 71; Resp 17; Temp 98; Pulse Ox 94% on 2 lpm NC; Pain 0/10; ak1 02:30 BP 109 / 74; Pulse 64; Resp 16; Pulse Ox 97% on R/A; ea 03:37 BP 113 / 71; Pulse 59; Resp 14; Temp 98; Pulse Ox 97% on 2 lpm NC; Pain 0/10; ak1 05/01 23:55 Body Mass Index 23.08 (64.86 kg, 167.64 cm) ED Course: 05/01 23:55 Arm band placed on Patient placed in an exam room, on a stretcher. fc 23:55 Patient has correct armband on for positive identification. Placed in gown. Bed in low fc position. Call light in reach. Side rails up X2. 23:55 No provider procedures requiring assistance completed. fc 05/02 00:00 Inserted saline lock: 20 gauge in left forearm, using aseptic technique. ea 00:02 Patient arrived in ED. ak1 00:03 Leopoldo Hall PA is PHCP. cp 00:03 Leopoldo Fonseca MD is Attending Physician. cp 00:06 Triage completed. fc 00:09 Clara Bennett, LIZ is Primary Nurse. ea 00:11 XRAY Chest (1 view) In Process Unspecified. EDMS 01:22 Oliver Max MD is Hospitalizing Provider. cp 01:43 Patient admitted, IV remains in place. ak1 Administered Medications: 00:12 Drug: NS 0.9% 250 ml Route: IV; Rate: bolus; Site: left forearm; ea 00:35 Follow up: IV Status: Completed infusion ak1 00:12 Drug: Lopressor 5 mg Route: IVP; Site: left forearm; ea 00:35 Follow up: Response: Cardiac rhythm changed ak1 00:35 Drug: NS 0.9% 1000 ml Route: IV; Rate: 75 ml/hr; Site: right forearm; ak1 00:35 Follow up: IV Status: Infusion continued upon admission ak1 00:36 Drug: Lovenox 1 mg/kg Route: Sub-Q; Site: left lower abdomen; ea 01:43 Follow up: Response: No adverse reaction ak1 Outcome: 01:23 Decision to Hospitalize by Provider. cp 01:42 Condition: stable ak1 01:42 Instructed on the need for admit. 03:46 Admitted to Tele accompanied by tech, via wheelchair, room 419, with oxygen, with ak1 chart, Report called to nurse oleksandr for 419 04:13 Patient left the ED. ak1 Signatures: Dispatcher [employer] EDMS Chretien, Mariah, RN RN fc Judy Ho, RN RN ak1 Leopoldo Hall PA PA cp Antunez, Elena RN RN ea
--- NOTE | 2018-05-02 01:23 | EDPHYS ---
Physician Documentation [facility] Unit Name: Carlos Eduardo Macias Age: 67 yrs Sex: Male : 1950 Arrival Date: 05/02/2018 Time: 00:02 Bed 2 Private MD: ED Physician Leopoldo Fonseca HPI: 05/02 00:05 This 67 yrs old Male presents to ER via Ambulatory with complaints of cp irregular heart rate. 00:05 The patient presents with a history of irregular heart beat. Context: The symptoms cp occur and the patient has a history of A-fib. Onset: The symptoms/episode began/occurred 2 month(s) ago, and became worse tonight. Duration: The patient or guardian reports multiple episodes, that are intermittent, with no pattern. Associated signs and symptoms: Pertinent negatives: cough, fever, lightheadedness, SOB, syncope, near-syncope. Severity of symptoms: in the emergency department the symptoms are unchanged despite home interventions. Historical: - Allergies: 00:11 PENICILLINS; fc - Home Meds: 00:11 amiodarone 200 mg Oral tab 1 tab once daily [Active]; aspirin 81 mg Oral TbEC 1 tab fc once daily [Active]; Coreg 3.125 mg Oral tab 1 tab every 12 hours [Active]; losartan 50 mg Oral tab 1 tab once daily [Active]; pravastatin 80 mg Oral tab 1 tab nightly [Active]; - PMHx: 00:11 Atrial Fib; Hypertension; High Cholesterol; CAD; Myocardial infarction; fc - PSHx: 00:11 Cholecystectomy; Appendectomy; CABG; heart ablation; defib; fem pop; extensive heart fc surgeries; - Immunization history:: Last tetanus immunization: unknown, Flu vaccine is not up to date. - Social history:: Smoking status: Patient/guardian denies using tobacco. - Ebola Screening: : Patient negative for fever greater than or equal to 101.5 degrees Fahrenheit, and additional compatible Ebola Virus Disease symptoms Patient denies exposure to infectious person Patient denies travel to an Ebola-affected area in the 21 days before illness onset. ROS: 00:10 Constitutional: Negative for body aches, chills, fever, poor PO intake. cp 00:10 Eyes: Negative for injury, pain, redness, and discharge. cp Exam: 00:05 ECG was reviewed by the Attending Physician. cp 00:15 Constitutional: The patient appears in no acute distress, alert, awake, cp non-diaphoretic, non-toxic, well developed, well nourished. 00:15 Head/Face: Normocephalic, atraumatic. cp 00:15 Eyes: Periorbital structures: appear normal, Pupils: equal, round, and reactive to light and accomodation, Extraocular movements: intact throughout, Conjunctiva: normal, no exudate, no injection, Sclera: no appreciated abnormality, Lids and lashes: appear normal, bilaterally. 00:15 ENT: External ear(s): are unremarkable, Ear canal(s): are normal, clear, TM's: dullness, bilaterally, Nose: is normal, Mouth: Lips: moist, Oral mucosa: pink and intact, moist, Posterior pharynx: Airway: no evidence of obstruction, patent, Uvula: midline, swelling, is not appreciated, erythema, is not appreciated, exudate, is not appreciated, Voice: is normal. 00:15 Chest/axilla: Inspection: normal, Palpation: is normal, no crepitus, no tenderness. 00:15 Cardiovascular: Rate: tachycardic, Rhythm: irregular, Pulses: Pulses are 2+ in right radial artery and left radial artery. Edema: is not appreciated, JVD: is not appreciated. 00:15 Respiratory: the patient does not display signs of respiratory distress, Respirations: normal, no use of accessory muscles, no retractions, no splinting, no tachypnea, labored breathing, is not present, Breath sounds: are clear throughout, no decreased breath sounds, no stridor, no wheezing. 00:15 Abdomen/GI: Inspection: abdomen appears normal, Bowel sounds: active, all quadrants, Palpation: abdomen is soft and non-tender, in all quadrants. 00:15 Back: pain, is absent, ROM is normal. 00:15 Skin: cellulitis, is not appreciated, no rash present. 00:15 Neuro: Orientation: to person, place \T\ time. Mentation: lucid, able to follow commands, Cerebellar function: is grossly normal, Motor: moves all fours, strength is normal, Sensation: no obvious gross deficits, Gait: is steady, at a normal pace, without difficulty. 00:45 ECG was reviewed by the Attending Physician. cp Vital Signs: 05/01 23:55 BP 117 / 91; Pulse 136; Resp 20; Temp 97.6(O); Pulse Ox 95% on R/A; Weight 64.86 kg fc (R); Height 5 ft. 6 in. (167.64 cm) (R); Pain 0/10; 05/02 00:11 BP 119 / 77; Pulse 129; Resp 20; Pulse Ox 96% on R/A; Pain 0/10; ea 00:24 BP 108 / 70; Pulse 66; Resp 17; Pulse Ox 95% on 2 lpm NC; ea 01:42 BP 115 / 82; Pulse 71; Resp 17; Temp 98; Pulse Ox 94% on 2 lpm NC; Pain 0/10; ak1 02:30 BP 109 / 74; Pulse 64; Resp 16; Pulse Ox 97% on R/A; ea 03:37 BP 113 / 71; Pulse 59; Resp 14; Temp 98; Pulse Ox 97% on 2 lpm NC; Pain 0/10; ak1 05/01 23:55 Body Mass Index 23.08 (64.86 kg, 167.64 cm) fc MDM: 00:05 Patient medically screened. cp 01:10 Data reviewed: vital signs, nurses notes, lab test result(s), EKG, radiologic studies, cp plain films, and as a result, I will admit patient. 01:10 Test interpretation: by ED physician or midlevel provider: ECG, plain radiologic cp studies. Response to treatment: the patient's symptoms have markedly improved after treatment. 01:15 Physician consultation: Oliver Max MD was contacted at 01:15, regarding admission, cp to the telemetry unit. patient's condition. 01:17 Patient medically screened. ken 05/02 00:04 Order name: Basic Metabolic Panel cp 05/02 00:04 Order name: CBC with Diff; Complete Time: 01:09 cp 05/02 01:09 Interpretation: Normal except: RBC 5.57. cp 05/02 00:04 Order name: LFT's cp 05/02 00:04 Order name: Magnesium cp 05/02 00:04 Order name: NT PRO-BNP cp 05/02 00:04 Order name: PT-INR; Complete Time: 01:09 cp 05/02 00:04 Order name: Troponin (emerg Dept Use Only) cp 05/02 00:04 Order name: XRAY Chest (1 view) cp 10 00:04 Order name: TSH cp 10 00:04 Order name: T3 Free cp 10 00:04 Order name: EKG; Complete Time: 00:05 cp 10 00:04 Order name: Cardiac monitoring; Complete Time: 00:10 cp 05/02 00:04 Order name: EKG - Nurse/Tech; Complete Time: 00:10 cp 05/02 00:04 Order name: IV Saline Lock; Complete Time: 00:10 cp 05/02 00:04 Order name: Labs collected and sent; Complete Time: 00:10 cp 05/02 00:04 Order name: O2 Per Protocol; Complete Time: 00:10 cp 05/02 00:04 Order name: O2 Sat Monitoring; Complete Time: 00:10 cp 05/02 01:29 Order name: CONS Physician Consult EDMS EC:05 Rate is 138 beats/min. Rhythm is irregular. QRS interval is prolonged at 158 msec. QT cp interval is normal. Interpreted by me. Reviewed by me. 00:45 Rate is 62 beats/min. Rhythm is regular. AL interval is normal. QRS interval is cp prolonged at 100 msec. QT interval is normal. T waves are Inverted in leads aVL, V2. Interpreted by me. Reviewed by me. Administered Medications: 00:12 Drug: NS 0.9% 250 ml Route: IV; Rate: bolus; Site: left forearm; ea 00:35 Follow up: IV Status: Completed infusion ak1 00:12 Drug: Lopressor 5 mg Route: IVP; Site: left forearm; ea 00:35 Follow up: Response: Cardiac rhythm changed ak1 00:35 Drug: NS 0.9% 1000 ml Route: IV; Rate: 75 ml/hr; Site: right forearm; ak1 00:35 Follow up: IV Status: Infusion continued upon admission ak1 00:36 Drug: Lovenox 1 mg/kg Route: Sub-Q; Site: left lower abdomen; ea 01:43 Follow up: Response: No adverse reaction ak1 Disposition: 06:42 Co-signature as Attending Physician, Leopoldo MCFARLANE I agree with the assessment and ken plan of care. Disposition: 05/02/18 01:23 Hospitalization ordered by Oliver Max for Observation. Preliminary diagnosis are Palpitations, Abnormal electrocardiogram [ECG] [EKG]. - Bed requested for Telemetry/MedSurg (observation). - Status is Observation. ak1 - Condition is Stable. - Problem is an ongoing problem. - Symptoms have improved. UTI on Admission? No Signatures: Dispatcher [employer] EDMS Patti Lang RN LIZ Leopoldo Fonseca MD MD cha Chretien, Felicia RN LIZ Judy Ho RN LIZ ak Leopoldo Hall PA PA cp Antunez, Elena, RN RN ea Corrections: (The following items were deleted from the chart) 00:45 00:43 Rate is 138 beats/min. Rhythm is irregular. QRS interval is prolonged at 158 cp msec. QT interval is normal. Interpreted by me. Reviewed by me. 01:58 01:23 Hospitalization Ordered by Oliver Max MD for Observation. Preliminary diagnosis is Palpitations; Abnormal electrocardiogram [ECG] [EKG]. Bed requested for Telemetry/MedSurg (observation). Status is Observation. Condition is Stable. Problem is an ongoing problem. Symptoms have improved. UTI on Admission? No. cp 04:13 01:58 05/02/2018 01:23 Hospitalization Ordered by Oliver Max MD for Observation. ak1 Preliminary diagnosis is Palpitations; Abnormal electrocardiogram [ECG] [EKG]. Bed requested for Telemetry/MedSurg (observation). Status is Observation. Condition is Stable. Problem is an ongoing problem. Symptoms have improved. UTI on Admission? No.
[2018-05-02 01:32] LABS: T3 Free 3.17 pg/mL (2.18-3.98)
[2018-05-02] MEDS ORDERED: MORPHINE 4 MG/ML SYR IV PRN (03:11)
[2018-05-02] MEDS ORDERED: ALPRAZOLAM 0.25 MG TABLET PO PRN (03:11)
[2018-05-02] MEDS ORDERED: ACETAMINOPHEN 500 MG TAB PO PRN (03:11)
[2018-05-02 04:49] VITALS: O2SAT 97
[2018-05-02 05:06] VITALS: BMI 21.7
--- NOTE | 2018-05-02 06:43 | EKG ---
Test Date: 2018-05-01 Test Time: 23:59:00 Customer Service Officer: KAYLEIGH MEASUREMENT RESULTS: Intervals: Rate: 138 KS: QRSD: 158 QT: 380 QTc: 575 Siren: P: KS: QRS: 100 T: -77 INTERPRETIVE STATEMENTS: Ventricular tachycardia with fusion complexes Abnormal ECG Compared to ECG 12/06/2017 21:33:29 Ventricular tachycardia is now present Electronically Signed On 05-02-18 06:42:53 CDT by Jose Weinstein
[2018-05-02 07:06] LABS: HDL Cholesterol 40 mg/dL (40-60); LDL Cholesterol, Calculated 63 (<130); Troponin I < 0.02 ng/mL (0.0-0.045)
--- NOTE | 2018-05-02 07:40 | EKG ---
Test Date: 2018-05-02 Test Time: 00:36:15 Greenhouse Instructor: KAYLEIGH MEASUREMENT RESULTS: Intervals: Rate: 62 TN: 178 QRSD: 100 QT: 448 QTc: 454 Munden: P: 37 TN: 178 QRS: 3 T: 78 INTERPRETIVE STATEMENTS: Normal sinus rhythm Possible Anterior infarct, age undetermined Abnormal ECG Compared to ECG 05/01/2018 23:59:00 Myocardial infarct finding now present Fusion complex(es) no longer present Ventricular tachycardia no longer present Electronically Signed On 05-02-18 07:40:02 CDT by Jose Weinstein
[2018-05-02] MEDS ORDERED: PNEUMOCOCCAL VACCINE 0.5 ML IMVAC ONE (08:00)
[2018-05-02] MEDS ORDERED: INFLUENZA VACCINE (for 3y+) 0.5 ML DOSE IMVAC ONE (08:00)
[2018-05-02] MEDS ORDERED: REGADENOSON 0.4 MG/5 ML SYR IV ONE (08:24)
--- NOTE | 2018-05-02 08:50 | RAD REPORT ---
EXAM DESCRIPTION: RAD - Chest Single View - 05/02/2018 12:12 am CLINICAL HISTORY: PALPITATIONS Chest pain. COMPARISON: Chest Single View dated 12/06/2017; Chest Single View dated 02/24/2017; Chest Single View d ated 11/20/2016; Chest Single View dated 11/12/2016 FINDINGS: Portable technique limits examination quality. The lungs are grossly clear. The heart is normal in size. No displaced fractures.Single lead pacer/de fibrillator device. Sternotomy wires present. IMPRESSION: No acute intrathoracic process suspected.
[2018-05-02] MEDS: ENOXAPARIN 40 MG/0.4 ML SQ SCH (09:00)
[2018-05-02] MEDS ORDERED: ASPIRIN EC 81 MG TAB PO SCH (09:00)
[2018-05-02] MEDS ORDERED: METOPROLOL TAR 50 MG TAB PO SCH (09:00)
--- NOTE | 2018-05-02 09:28 | P.HP ---
Certification for Inpatient Patient admitted to: Observation With expected LOS: <2 Midnights Patient will require the following post-hospital care: None Practitioner: I am a practitioner with admitting privileges, knowledge of patient current condition, hospital course, and medical plan of care. Services: Services provided to patient in accordance with Admission requirements found in Title 42 Section 412.3 of the Code of Federal Regulations Patient History Date of Service: 05/02/18 Reason for admission: Chest palpitations History of Present Illness: Patient is a 67-year-old gentleman came into the hospital with palpation chest. Patient on checked his blood pressure any states it was very low. The blood pressure read about 60/40 on 2 different occasions. Because of his prior cardiac issues he became a little concerned and is anxiety kicked in. He came to the hospital for further evaluation. In the emergency room his workup has been unremarkable. However, because he does have significant risk factors will go ahead and admit him to the hospital for observation. Anticipate discharge home tomorrow if his labs an EKG and Cardiology input does not reveal any significant findings. Allergies Penicillins Adverse Reaction (Severe, Verified 12/21/15 00:06) Anaphylaxis Home Medications: Losartan Potassium 50 mg PO DAILY 12/21/15 Pravastatin Sodium 80 mg PO BEDTIME 12/21/15 Amiodarone HCl 200 mg PO DAILY 12/07/17 Aspirin Chewable [Aspirin Chewable*] 1 tab PO DAILY 12/07/17 Carvedilol 1 tab PO BIDWM 12/07/17 Ezetimibe 1 tab PO DAILY 12/07/17 Cefuroxime [Ceftin] 250 mg PO BID #14 tab 12/08/17 Pantoprazole [Protonix Tab] 40 mg PO DAILY #30 tab 12/08/17 metroNIDAZOLE [Flagyl] 500 mg PO Q8H #21 tablet 12/08/17 - Past Medical/Surgical History Has patient received pneumonia vaccine in the past: No Diabetic: No -: htn -: Afib -: CAD -: hypercholesterolemia -: double bypass -: appendectomy -: defibrillator - Family History Father Medical History: Heart disease - Social History Smoking Status: Former smoker Alcohol use: No CD- Drugs: No Caffeine use: No Place of Residence: Home Review of Systems 10-point ROS is otherwise unremarkable Physical Examination - Vital Signs Temperature: 97.8 F Blood Pressure: 130/99 Pulse: 79 Respirations: 18 Pulse Ox (%): 92 - Physical Exam General: Alert, In no apparent distress, Oriented x3 HEENT: Atraumatic, PERRLA, Mucous membr. moist/pink, EOMI, Sclerae nonicteric Neck: Supple, 2+ carotid pulse no bruit, No LAD, Without JVD or thyroid abnormality Respiratory: Clear to auscultation bilaterally, Normal air movement Cardiovascular: Regular rate/rhythm, Normal S1 S2, Systolic murmur Gastrointestinal: Normal bowel sounds, Soft and benign, Non-distended, No tenderness Musculoskeletal: No clubbing, No swelling, No tenderness Integumentary: No rashes Neurological: Normal gait, Normal speech, Normal strength at 5/5 x4 extr, Normal tone, Sensation intact, Cranial nerves 3-12 intact, Normal affect Lymphatics: No axilla or inguinal lymphadenopathy - Studies Laboratory Data (last 24 hrs) 05/02/18 00:05: PT 11.7, INR 0.99 05/02/18 00:05: WBC 10.5, Hgb 16.7, Hct 48.3, Plt Count 187 05/02/18 00:05: Sodium 139, Potassium 4.0, BUN 15, Creatinine 1.40 H, Glucose 103, Magnesium 2.3, Total Bilirubin 0.4, AST 20, ALT 20, Alkaline Phosphatase 84 Assessment & Plan - Problems (Diagnosis) (1) Palpitations Current Visit: Yes Status: Acute (2) Anxiety disorder Current Visit: Yes Status: Acute (3) Bigeminy Onset Date: 10/26/16 Current Visit: No Status: Acute (4) Chest pain Onset Date: 07/09/16 Current Visit: No Status: Acute (5) Atrial fibrillation Onset Date: 12/07/17 Current Visit: No Status: Chronic Qualifiers: Atrial fibrillation type: chronic Qualified Code(s): I48.2 - Chronic atrial fibrillation (6) Hyperlipemia Current Visit: No Status: Chronic Qualifiers: Hyperlipidemia type: unspecified Qualified Code(s): E78.5 - Hyperlipidemia , unspecified (7) Hypertension Onset Date: 12/07/17 Current Visit: No Status: Chronic Qualifiers: Hypertension type: essential hypertension Qualified Code(s): I10 - Essential (primary) hypertension - Plan 1. Serial troponins and EKG 2. Cardiology consultation 3. Echocardiogram for further evaluation 4. Anti-platelet therapy, anti coagulation, beta-parveen, statin, and O2 as needed 5. IV morphine for pain 6. Nitro p.r.n. Discharge Plan: Home Plan to discharge in: Greater than 2 days - Advance Directives Does patient have a Living Will: No Does patient have a Durable POA for Healthcare: Yes - Code Status/Comfort Care Code Status Assessed: Yes Code Status: Full Code Critical Care: No Time Spent Managing PTS Care (In Minutes): 50
--- NOTE | 2018-05-02 13:22 | CON ---
History Of Present Illness: Mr. 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 He has had bypass surgery. Ejection fraction is in the 40s now, it had been in the high 2 0s. He has a defibrillator because of frequent episodes of atrial fibrillation and ventricular tachy cardia. His defibrillator is fairly new. It is his second one. It is managed by Dr. Srinivasan at [facility] in [place]. He has had a checkup within the last 2 months. He has had several problems in the past with his defibrillator, not detecting his ventricular tachycardia and he came to the [facility] with several hours or perhaps a whole day of heart racing. He was found to be in ventricular t achycardia. The heart rate was right about 140 beats per minute and the defibrillator did not try to pace terminate or defibrillate him. Heart rate was exactly 138 according to the EKG. In the emerge ncy room, he was cardioverted. Medications: His outpatient medications had included amiodarone 200 mg once a day. He also takes as pirin, Coreg, losartan, and pravastatin. Past Surgical History: He has had a cholecystectomy, appendectomy, bypass surgery, ablation, defibri llator, femoral-popliteal. Social History: About a year ago, he quit smoking. Past Medical History: He has underlying COPD. Physical Examination: Vital signs: Five feet and 8 inches, 143 pounds. HEENT: Normal. Lungs: Clear. Cardiac: Normal. Abdomen: Soft. Extremities: Normal. Laboratory Data: His EKG now shows sinus rhythm. No infarction, injury, or ischemia. Impression: Mr. Macias has ventricular tachycardia that is not being controlled by his defibrillato r. We will do a stress test and echo. If those look reasonably normal as I suspect they will, then we will consult with Dr. Srinivasan for a possible defibrillator programming change. STEVE/WENDY Voice ID: [id number] Report ID: [id number]
[2018-05-02] MEDS: ASPIRIN 81 MG CHEWABLE TABLET PO SCH (14:04)
[2018-05-02] MEDS: AMIODARONE HCL 200 MG TAB PO SCH (14:05)
[2018-05-02] MEDS: LOSARTAN POTASSIUM 50 MG TABLET PO SCH (14:05)
[2018-05-02] MEDS: CARVEDILOL 3.125 MG TAB PO SCH ×2 (14:05→18:27)
[2018-05-02] MEDS: PANTOPRAZOLE 40MG TABLET PO SCH (14:05)
[2018-05-02] MEDS ORDERED: ATORVASTATIN 10 MG TAB PO SCH (21:00)
--- NOTE | 2018-05-03 10:26 | RAD REPORT ---
EXAM DESCRIPTION: NM - Rest Stress Cardiac Imaging - 05/03/2018 9:59 am CLINICAL HISTORY: Chest pain. COMPARISON: 2015 TECHNIQUE: The patient was administered approximately 10mCi of Tc 99m Sestamibi prior to resting SPE CT imaging of the heart. The patient was then administered approximately 30 mCi of Tc 99m Sestamibi f ollowing exercise or pharmacologic stress. Multiplanar SPECT images were reviewed. FINDINGS: Diminished radiotracer activity involves the inferior and septal left ventricle myocardium on rest and stress sequences. The left ventricular ejection fraction equals 36%. IMPRESSION: Moderate apparent fixed perfusion defect involving the inferoseptal left ventricular my ocardium may indicate an infarct. There is no evidence of stress-induced ischemia
[2018-05-03] MEDS: CARVEDILOL 3.125 MG TAB PO SCH (11:26)
[2018-05-03] MEDS: ASPIRIN 81 MG CHEWABLE TABLET PO SCH (11:27)
[2018-05-03] MEDS: AMIODARONE HCL 200 MG TAB PO SCH (11:28)
[2018-05-03] MEDS: LOSARTAN POTASSIUM 50 MG TABLET PO SCH (11:28)
[2018-05-03] MEDS: ENOXAPARIN 40 MG/0.4 ML SQ SCH (11:28)
[2018-05-03] MEDS: PANTOPRAZOLE 40MG TABLET PO SCH (11:28)
--- NOTE | 2018-05-03 12:18 | TREADPHA ---
DX: ABNORMAL ELECTROCARDIOGRAM Date of Study: 05/03/2018 Ht: 5 8 Wt: 143 lb 0 oz Consulting Physician: AUSTYN MEDICATIONS: TYLENOL, ASPIRIN, XANAX, CORARONE, COREG, LIPITOR, LOVENOX, COZAAR HISTORY: 67 YEAR OLD MALE HERE FOR ABNORMAL ELECTROCARDIOGRAM. HISTORY OF HYPERTENSION, HIGH CHOLESTEROL, CORNARY ARTERY DISEASE, MYOCARDIAL INFARCTION, CORNARY ATRERY BYPASS GRAFT TIMES TWO, HEART ABLATION, DEFIBRILLATOR. PHYSICIAL EXAMINATION: RESTING B.P.: 130/70 RESTING H.R.: 74 RESTING EKG: SINUS, RIGHTWARD AXIS. CANNOT RULE OUT MYOCARDIAL INFARCTION. PROTOCOL: LEXISCAN EXERCISE TIME: 3:30 B.P. AT PEAK STRESS: 126/79 IMPRESSION: LEXISCAN STRESS TEST PERFORMED. CARDIOLITE INJECTED PER PROTOCOL. DENIES ANY CHEST PAIN. MULTIFOCAL PREMATURE VENTRICULAR COMPLEXES NOTED THROUGHOUT THAT. SEE NUCLEAR MEDICINE REPORT. NON-DIAGNOSTIC ELECTROCARDIOGRAM WITH LEXISCAN STRESS.
--- NOTE | 2018-05-03 12:19 | ECHO ---
HEIGHT: 5 ft 8 in WEIGHT: 143 lb 0 oz DATE OF STUDY: 05/03/[address]: Oliver Max MD 2-DIMENSIONAL: YES M.MODE: YES DOPPLER: YES COLOR FLOW: YES TDS: NO PORTABLE: NO DEFINITY: NO BUBBLE STUDY: NO DIAGNOSIS: CONGESTIVE HEART FAILURE CARDIAC HISTORY: CATHERIZATION: YES SURGERY: YES PROSTHETIC VALVE: NO PACEMAKER: YES MEASUREMENTS (cm) DIASTOLIC (NORMALS) SYSTOLIC (NORMALS) IVSd 1.0 (0.6-1.2) LA Diam 4.2 (1.9-4.0) LVEF 45-49% LVIDd 3.5 (3.5-5.7) LVIDs 3.0 (2.0-3.5) %FS % LVPWd 1.1 (0.6-1.2) Ao Diam 3.3 (2.0-3.7) 2 DIMENSIONAL ASSESSMENT: RIGHT ATRIUM: DILATED LEFT ATRIUM: DILATED RIGHT VENTRICLE: PACEMAKER CATHETER LEFT VENTRICLE: NORMAL TRICUSPID VALVE: NORMAL MITRAL VALVE: MITRAL VALVE PROLAPSE PULMONIC VALVE: NORMAL AORTIC VALVE: NORMAL PERICARDIAL EFFUSION: NONE AORTIC ROOT: NORMAL LEFT VENTRICULAR WALL MOTION: SEPTAL HYPOKINESIS. DOPPLER/COLOR FLOW: MILD TRICUSPID REGURGITATION. NORMAL RIGHT VENTRICULAR SYSTOLIC PRESSURE. COMMENTS: MILDLY DEPRESSED LEFT VENTRICULAR EJECTION FRACTION WITH WALL MOTIONA ABNORMALITY. DILATED LEFT AND RIGHT ATRIUM. MITRAL VALVE PROLAPSE. MILD TRICUSPID REGURGITATION. TECHNOLOGIST: CYRIL MATHEWS
[2018-05-03 12:42] VITALS: BP 124/70; TEMP 99.1
--- NOTE | 2018-05-04 00:49 | PN ---
Date of Progress Note: 05/03/2018 History Of Present Illness: Admitted by Dr. Cooper on 05/02/2018. He was seen by Dr. Weinstein on 05/02. This is a followup visit for 05/03/2018. He had come in with VT. AICD did not give him shoc k. He had to have a cardioversion in the emergency room and has been in sinus rhythm since. Occasio nal PVCs. Echocardiogram, which was done today, showed moderately reduced ejection fraction. Stress test showed a fixed defect. The patient can go home on his present regimen. He needs to follow up with Dr. Srinivasan in [place] to readjust his defibrillator. ANDREZ/WENDY Voice ID: [id number] Report ID: [id number]
--- NOTE | 2018-05-04 04:16 | DS ---
Date of Discharge: 05/03/2018 Consultants: Dr. Sneed with Cardiology. Procedures: On 05/2018, nuclear stress test shows fixed defect. No stress- induced ischemia. Code status: Full Admitting Diagnoses: 1. Palpitations. 2. Anxiety disorder. 3. Bigeminy. 4. Chest pain. 5. Atrial fibrillation, chronic. 6. Hyperlipidemia, mixed. 7. Essential hypertension. Discharge Diagnoses: 1. Chest pain, acute coronary syndrome ruled out. 2. Status post defibrillator. 3. Atrial fibrillation, chronic, status post Watchman procedure. 4. Hyperlipidemia. 5. Essential hypertension. 6. Generalized anxiety disorder. 7. Palpitations, resolved. Hospital Course: The patient is a 67-year-old male, comes in with low blood pressure at home and was feeling chest palpitations. The patient was admitted to the hospital due to his risk factors and to rule out ACS. The patient's cardiac enzymes remain negative. His lipid panel showed triglycerides at 153. LDL was 63. TSH came back normal. His palpitations resolved. Creatinine level was 1.4, which is around his baseline of about 1.3. The patient was seen by Cardiology, did have a nuclear stress test done, which showed a moderate apparent fixed perfusion defect involving the inferoseptal left ventricular myocardium, but no evidence of stress-induced ischemia. Echocardiogram was also done, showed EF of 45% to 49%, dilated left and right atrium, mild wall motion abnormality, mitral valve prolapse, mild tricuspid regurg. The patient was then cleared by Cardiology, Dr. Sneed to follow up with his perinatal nurse, Dr. Cain and to have his defibrillator adjusted. The patient otherwise was doing well. His blood pressure was stable in the 120s. Denies any further episodes of palpitation. The patient was then discharged home in a stable condition. Activity: As tolerated. Medications: As per medication reconciliation list. Followup: Follow up with primary care physician in 2 to 3 days. Follow up with perinatal nurse, Dr. Cain 1 to 2 weeks. Return to ER for worsening condition. Diet: Heart healthy. Activity: As tolerated. Physical Examination: General: Awake, alert, oriented x3. No acute distress. CV: S1, S2. No murmurs. Respiratory: Moving air well bilaterally. Abdomen: Soft, nontender, nondistended. Positive bowel sounds. Extremities: No clubbing, cyanosis, or edema. Neuro: Nonfocal. SA/MODL Voice ID: [id number] Report ID: [id number] [id number]
== END 2018-05-03 14:42 | disposition home or self-care (01) ==
LOC: ER 23:59 → ERHOLD 05-02 01:27 → 4TH 05-02 03:41
PROVIDERS: ADMIT Hospitalist; ATTEND Hospitalist
DX: R00.2 Palpitations (principal); R07.9 Chest pain, unspecified; Z95.810 Presence of automatic (implantable) cardiac defibrillator; I48.2 Chronic atrial fibrillation; E78.5 Hyperlipidemia, unspecified; I10 Essential (primary) hypertension; I25.10 Atherosclerotic heart disease of native coronary artery without angina pectoris; F41.1 Generalized anxiety disorder; Z23 Encounter for immunization; Z95.1 Presence of aortocoronary bypass graft; Z88.0 Allergy status to penicillin
CPT/HCPCS: 36415; 71045; 78452; 80048; 80061; 80076; 83735; 83880; 84443; 84481; 84484 ×3; 85025; 85610; 93005 ×2; 93017; 93306; 96361; 96372; 96374; 99285; A9500; G0008; G0378 ×2; J1650 ×2; J2785; J7030; Q2035; 96365; 96375

== ENCOUNTER 2019-02-25 07:31 | Inpatient (IN) | payer MEDICARE, OTHER ==
[2019-02-25 07:55] LABS: Absolute Lymphocytes (CBC) 0.8 K/uL (0.7-4.9); Basophils % 0.4 % (0-1.3); Lymphocytes % 4.3 % (15.3-44.8); MPV 7.4 fL (7.6-11.3); RBC Red Blood Cell Count 4.81 M/uL (4.33-5.43)
[2019-02-25] MEDS ORDERED: METHYLPREDNISOLONE 125 MG INJ ONE (07:55)
[2019-02-25] MEDS ORDERED: ALBUTEROL 2.5 MG/3 ML NEB SOL ONE (07:56)
[2019-02-25] MEDS ORDERED: IPRATROPIUM BROM 0.5MG/2.5ML ONE (07:56)
[2019-02-25 08:09] LABS: Protime INR 1.25
[2019-02-25 08:14] LABS: ALT/SGPT 23 U/L (12-78); AST/SGOT 31 U/L (15-37); Albumin 1.9 g/dL (3.4-5.0); Alkaline Phosphatase 88 U/L (45-117); BUN Blood Urea Nitrogen 14 mg/dL (7-18); Bicarbonate 21 mmol/L (21-32); Bilirubin Direct 0.3 mg/dL (0-0.2); Bilirubin Total 0.9 mg/dL (0.2-1.0); Glucose Level 124 mg/dL (74-106); Magnesium 2.2 mg/dL (1.8-2.4); NT PRO-BNP 3156 pg/mL (<125); Potassium 3.7 mmol/L (3.5-5.1); Protein, Total 5.7 g/dL (6.4-8.2); Sodium Level 135 mmol/L (136-145); Troponin (Emerg Dept Use Only) < 0.02 ng/mL (0.0-0.045)
[2019-02-25] MEDS ORDERED: NA CHLORIDE 0.9% 1,000 ML ONE (08:56)
[2019-02-25] MEDS ORDERED: Levofloxacin 750mg IV 750 MG/150 ML BAG IV ONE (08:56)
--- NOTE | 2019-02-25 09:20 | EDPHYS ---
Physician Documentation [facility] Name: Carlos Eduardo Macias Age: 68 yrs Sex: Male : 1950 Arrival Date: 02/25/2019 Time: 07:33 Bed 2 Private MD: ED Physician Leopoldo Fonseca HPI: 02/25 07:37 This 68 yrs old Male presents to ER via EMS with complaints of Shortness Of cp Breath. 07:37 The patient has shortness of breath at rest. cp 07:37 Onset: The symptoms/episode began/occurred 1 year(s) ago, and became worse 1 week(s) cp ago. Duration: The symptoms are continuous, and are steadily getting worse. Associated signs and symptoms: Pertinent negatives: chest pain, diaphoresis, fever, hemoptysis, vomiting. Severity of symptoms: in the emergency department the symptoms have improved mildly. Historical: - Allergies: 07:35 PENICILLINS; ss - PMHx: 07:35 Atrial Fib; CAD; High Cholesterol; Hypertension; Myocardial infarction; ss - PSHx: 07:35 Cholecystectomy; Appendectomy; CABG; heart ablation; defib; fem pop; extensive heart ss surgeries; - Immunization history:: Adult Immunizations unknown. - Social history:: Smoking status: Patient/guardian denies using tobacco, the patient reports quitting approximately 4 years ago. - Ebola Screening: : Patient denies exposure to infectious person Patient denies travel to an Ebola-affected area in the 21 days before illness onset. ROS: 07:45 Constitutional: Negative for body aches, chills, fever, poor PO intake. cp 07:45 Eyes: Negative for injury, pain, redness, and discharge. cp 07:45 ENT: Negative for drainage from ear(s), ear pain, sore throat, difficulty swallowing, difficulty handling secretions. 07:45 Cardiovascular: Negative for chest pain, edema, palpitations. 07:45 Respiratory: Positive for shortness of breath, at rest. Negative for cough, wheezing. 07:45 Abdomen/GI: Negative for abdominal pain, nausea, vomiting, and diarrhea, constipation. 07:45 Back: Negative for pain at rest, pain with movement. 07:45 : Negative for urinary symptoms. 07:45 Skin: Negative for rash. 07:45 Neuro: Negative for altered mental status, headache, weakness. 07:45 All other systems are negative. Exam: 07:50 Constitutional: The patient appears alert, awake, non-diaphoretic, non-toxic, well cp developed, well nourished, in obvious distress, mildly distressed. 07:50 Head/Face: Normocephalic, atraumatic. cp 07:50 Eyes: Periorbital structures: appear normal, Conjunctiva: normal, no exudate, no injection, Sclera: no appreciated abnormality, Lids and lashes: appear normal, bilaterally. 07:50 ENT: External ear(s): are unremarkable, Nose: is normal, Mouth: Lips: moist, Oral mucosa: pink and intact, moist, Posterior pharynx: is normal, airway is patent, no erythema, no exudate. 07:50 Neck: ROM/movement: is normal, is supple, without pain, no range of motions limitations, no nuchal rigidity. 07:50 Chest/axilla: Inspection: normal, Palpation: is normal, no crepitus, no tenderness. 07:50 Cardiovascular: Rate: normal, Rhythm: regular, Pulses: Pulses are 2+ in right radial artery and left radial artery. Edema: is not appreciated, JVD: is not appreciated. 07:50 Respiratory: mild respiratory distress is noted, Respirations: labored breathing, that is mild, Breath sounds: decreased breath sounds, that are moderate, throughout, stridor, is not appreciated, wheezing: is not appreciated. 07:50 Abdomen/GI: Inspection: abdomen appears normal, Palpation: abdomen is soft and non-tender, in all quadrants, rebound tenderness, is not appreciated, voluntary guarding, is not appreciated, involuntary guarding, is not appreciated. 07:50 Back: pain, is absent, ROM is normal. 07:50 Skin: no rash present. 07:50 Neuro: Orientation: to person, place \T\ time. Mentation: is normal, Motor: moves all fours, strength is normal. 08:10 ECG was reviewed by the Attending Physician. cp Vital Signs: 07:35 BP 111 / 75; Pulse 79; Resp 25; Temp 98.0(O); Pulse Ox 96% on Non-rebreather mask; ss Weight 51.71 kg; Height 5 ft. 6 in. (167.64 cm); Pain 0/10; 08:18 BP 99 / 49; Pulse 70; Resp 22; Pulse Ox 96% on Nebulizer Mask; sv 08:52 BP 113 / 58; Pulse 72; Resp 22; Pulse Ox 95% on 5 lpm NC; sv 10:03 BP 114 / 61; Pulse 71; Resp 20; Pulse Ox 95% on 5 lpm NC; sv 07:35 Body Mass Index 18.40 (51.71 kg, 167.64 cm) ss MDM: 07:37 Patient medically screened. [facility] 09:10 Data reviewed: vital signs, nurses notes, lab test result(s), EKG, radiologic studies, cp plain films, I have discussed the patient's presentation/case with the attending Emergency Department Physician; and as a result, I will admit patient. 09:10 Test interpretation: by ED physician or midlevel provider: ECG, chest xray shows left cp lung opacity. Counseling: I had a detailed discussion with the patient and/or guardian regarding: the historical points, exam findings, and any diagnostic results supporting the discharge/admit diagnosis, lab results, radiology results. Response to treatment: the patient's symptoms have mildly improved after treatment. Physician consultation: Eryn Cooper MD was called at 09:10, was contacted at 09:10, regarding admission, to the telemetry unit. patient's condition. 02/25 07:36 Order name: Basic Metabolic Panel; Complete Time: 08:32 02/25 08:33 Interpretation: Normal except: NA 135; GLUC 124; GFR 66; CA 7.2. 02/25 07:36 Order name: CBC with Diff 02/25 08:33 Interpretation: Normal except: WBC 17.8; HGB 12.1; HCT 38.0; MCV 79.0; MCH 25.2; MCHC cp 31.9; PLT 481; MPV 7.4; VITA% 88.9; LYM% 4.3; NEUT A 15.9. 02/25 07:36 Order name: LFT's; Complete Time: 08:32 cp 02/25 08:33 Interpretation: Normal except: BILID 0.3; TP 5.7; ALB 1.9; GLOB 3.8; A/G 0.5. 02/25 07:36 Order name: Magnesium; Complete Time: 08:32 cp 02/25 07:36 Order name: NT PRO-BNP; Complete Time: 08:32 02/25 09:26 Interpretation: Abnormal: NT PRO-BNP 3156. cp 02/25 07:36 Order name: PT-INR; Complete Time: 08:32 cp 02/25 09:26 Interpretation: Reviewed. cp 02/25 07:36 Order name: Troponin (emerg Dept Use Only); Complete Time: 08:32 cp 02/25 07:36 Order name: XRAY Chest (1 view) cp 02/25 07:37 Order name: Lactate; Complete Time: 08:32 cp 02/25 07:37 Order name: Procalcitonin; Complete Time: 08:39 cp 02/25 08:39 Interpretation: Within normal limits: Procalcitonin 0.38. cp 02/25 07:37 Order name: Blood Culture Adult (2) cp 02/25 09:41 Order name: Occult Blood--Ancillary eb 02/25 07:36 Order name: EKG; Complete Time: 07:39 cp 02/25 07:36 Order name: Cardiac monitoring; Complete Time: 07:47 cp 02/25 07:36 Order name: EKG - Nurse/Tech; Complete Time: 07:57 cp 02/25 07:36 Order name: IV Saline Lock; Complete Time: 07:47 cp 02/25 07:36 Order name: Labs collected and sent; Complete Time: 07:47 cp 02/25 07:36 Order name: O2 Per Protocol; Complete Time: 07:47 cp 02/25 07:36 Order name: O2 Sat Monitoring; Complete Time: 07:47 cp EC:10 Rate is 73 beats/min. Rhythm is regular. RI interval is normal. QRS interval is cp prolonged at 116 msec. QT interval is prolonged at 500 msec. Interpreted by me. Reviewed by me. Administered Medications: 07:46 Drug: Albuterol - atroVENT (3:1) (2.5 mg - 0.5 mg) 3 ml Route: Nebulizer; sv 08:30 Follow up: Response: No adverse reaction; Marked relief of symptoms sv 07:47 Drug: SOLU-Medrol 125 mg Route: IVP; Site: right forearm; 07:57 Follow up: Response: No adverse reaction sv 08:46 Drug: LevaQUIN 750 mg Volume: 150 ml; Route: IVPB; Infused Over: 90 mins; Site: right ss forearm; 10:11 Follow up: IV Status: Completed infusion ss 08:46 Drug: NS 0.9% 500 ml Route: IV; Rate: bolus; Site: right forearm; ss 10:10 Follow up: IV Status: Infusion continued upon admission ss 10:10 Not Given (bolus still infusing at this time. Maintenance fluids to be given on floor): ss NS 0.9% 500 ml IV at 100 ml/hr continuous Disposition: 02/25/19 09:19 Hospitalization ordered by Eryn Cooper for Inpatient Admission. Preliminary diagnosis are Respiratory failure, unspecified with hypoxia, Pneumonia due to other specified bacteria, Gastrointestinal hemorrhage, unspecified - lower, stable. - Bed requested for Telemetry/MedSurg (Inpatient). - Status is Inpatient Admission. ss - Condition is Stable. - Problem is new. - Symptoms have improved. UTI on Admission? No Addendum: 02/26/2019 11:10 Co-signature as Attending Physician, Leopoldo Fonseca MD I agree with the assessment and c leary plan of care. Signatures: Dispatcher [facility] RN RN Leopoldo Fonseca MD MD cha Smirch, Shelby, RN RN Leopoldo Hall PA PA cp Botello, Elizabeth eb Corrections: (The following items were deleted from the chart) 02/25 08:33 08:33 Normal except: NA 135; GLUC 124; GFR 66. cp cp 09:41 09:19 Hospitalization Ordered by Eryn Cooper MD for Inpatient Admission. Preliminary cp diagnosis is Respiratory failure, unspecified with hypoxia; Pneumonia due to other specified bacteria. Bed requested for Telemetry/MedSurg (Inpatient). Status is Inpatient Admission. Condition is Stable. Problem is new. Symptoms have improved. UTI on Admission? No. cp 10:01 09:41 02/25/2019 09:19 Hospitalization Ordered by Eryn Cooper MD for Inpatient eb Admission. Preliminary diagnosis is Respiratory failure, unspecified with hypoxia; Pneumonia due to other specified bacteria; Gastrointestinal hemorrhage, unspecified - lower, stable. Bed requested for Telemetry/MedSurg (Inpatient). Status is Inpatient Admission. Condition is Stable. Problem is new. Symptoms have improved. UTI on Admission? No. cp 10:11 10:01 02/25/2019 09:19 Hospitalization Ordered by Eryn Cooper MD for Inpatient ss Admission. Preliminary diagnosis is Respiratory failure, unspecified with hypoxia; Pneumonia due to other specified bacteria; Gastrointestinal hemorrhage, unspecified - lower, stable. Bed requested for Telemetry/MedSurg (Inpatient). Status is Inpatient Admission. Condition is Stable. Problem is new. Symptoms have improved. UTI on Admission? No. eb
--- NOTE | 2019-02-25 09:20 | ER ---
Nurse's Notes [facility] Name: Carlos Eduardo Macias Age: 68 yrs Sex: Male : 1950 Arrival Date: 02/25/2019 Time: 07:33 Bed 2 Private MD: Diagnosis: Respiratory failure, unspecified with hypoxia;Pneumonia due to other specified bacteria;Gastrointestinal hemorrhage, unspecified-lower, stable Presentation: 02/25 07:33 Presenting complaint: EMS states: shortness of breath x 1 year that has been getting ss worse over time. Transition of care: patient was not received from another setting of care. Onset of symptoms was 2018. Risk Assessment: Do you want to hurt yourself or someone else? Patient reports no desire to harm self or others. Initial Sepsis Screen: Does the patient meet any 2 criteria? RR > 20 per min. Does the patient have a suspected source of infection? No. Patient's initial sepsis screen is negative. Care prior to arrival: Oxygen administered. via a non-rebreather mask. 07:33 Method Of Arrival: EMS: [facility] ss 07:33 Acuity: [facility]ST[facility] 2 ss 07:36 Note Pt was reportedly 82% on RA. ss Historical: - Allergies: 07:35 PENICILLINS; ss - PMHx: 07:35 Atrial Fib; CAD; High Cholesterol; Hypertension; Myocardial infarction; ss - PSHx: 07:35 Cholecystectomy; Appendectomy; CABG; heart ablation; defib; fem pop; extensive heart ss surgeries; - Immunization history:: Adult Immunizations unknown. - Social history:: Smoking status: Patient/guardian denies using tobacco, the patient reports quitting approximately 4 years ago. - Ebola Screening: : Patient denies exposure to infectious person Patient denies travel to an Ebola-affected area in the 21 days before illness onset. Screenin:52 Abuse screen: Denies threats or abuse. Denies injuries from another. Nutritional sv screening:. Nutritional screening: No deficits noted. Tuberculosis screening: No symptoms or risk factors identified. Fall Risk None identified. Assessment: 07:35 General: Appears uncomfortable, Behavior is calm, cooperative, Denies fever, chills. ss Pain: Denies pain. Neuro: Level of Consciousness is awake, alert, obeys commands, Oriented to person, place, time, situation, Speech is normal, Facial symmetry appears normal. Cardiovascular: Rhythm is regular. Respiratory: Airway is patent Respiratory effort is labored, Respiratory pattern is tachypnea Breath sounds are diminished bilaterally. Respiratory: Reports shortness of breath at rest on exertion since x 1 year cough that is dry, hacking, persistent since x 2-3 weeks. GI: Reports Intermittent blood in stool x 1 year Patient currently denies abdominal pain, diarrhea, nausea, vomiting. : No signs and/or symptoms were reported regarding the genitourinary system. EENT: Nares are clear Oral mucosa is dry. Musculoskeletal: Capillary refill < 3 seconds, is brisk, in bilateral fingers. Range of motion: intact in all extremities. 08:47 Reassessment: Patient appears in no apparent distress at this time. Patient and/or ss family updated on plan of care and expected duration. Pain level reassessed. Pt 93 % on 5L NC Patient denies pain at this time. Patient states feeling better. Respiratory: Respiratory effort is even, unlabored, Respiratory pattern is regular, symmetrical. Derm: Skin is pink, warm \T\ dry. 08:53 Reassessment: Patient updated on plan of care. Awaiting for provider to speak with ss hospitalist regarding possible admission for further evaluation/ treatment. 09:25 Reassessment: Patient appears in no apparent distress at this time. Patient and/or sv family updated on plan of care and expected duration. Pain level reassessed. Patient is alert, oriented x 3, equal unlabored respirations, skin warm/dry/pink. Pt showed me pictures on his phone of his rectal bleeding, he stated that it has been going on for months. Informed Leopoldo AMIN. 10:07 Reassessment: Report given to LIZ Patel. Vital Signs: 07:35 BP 111 / 75; Pulse 79; Resp 25; Temp 98.0(O); Pulse Ox 96% on Non-rebreather mask; ss Weight 51.71 kg; Height 5 ft. 6 in. (167.64 cm); Pain 0/10; 08:18 BP 99 / 49; Pulse 70; Resp 22; Pulse Ox 96% on Nebulizer Mask; sv 08:52 BP 113 / 58; Pulse 72; Resp 22; Pulse Ox 95% on 5 lpm NC; sv 10:03 BP 114 / 61; Pulse 71; Resp 20; Pulse Ox 95% on 5 lpm NC; sv 07:35 Body Mass Index 18.40 (51.71 kg, 167.64 cm) ED Course: 07:33 Patient arrived in ED. ss 07:34 Triage completed. ss 07:34 Leopoldo Hall PA is PHCP. cp 07:34 Leopoldo Fonseca MD is Attending Physician. cp 07:35 Arm band placed on right wrist. ss 07:35 Initial lab(s) drawn, by me, sent to lab. First set of blood cultures drawn by me. sv Inserted saline lock: 20 gauge in right forearm, using aseptic technique. Blood collected. Flushed right forearm with 5 ml normal saline. 07:37 Indira Gunter, LIZ is Primary Nurse. ss 07:40 Patient has correct armband on for positive identification. Placed in gown. Bed in low sv position. Call light in reach. Side rails up X2. school bus monitor on. Pulse ox on. NIBP on. Door closed. Warm blanket given. Head of bed elevated. 07:49 X-ray(s) taken. sv 07:50 Second set of blood cultures drawn by me. sv 07:56 EKG done, by ED staff, reviewed by Leopoldo AMIN. sv 08:04 XRAY Chest (1 view) In Process Unspecified. EDMS 08:20 Awaiting lab results, Awaiting radiology results. sv 09:18 Eryn Cooper MD is Hospitalizing Provider. cp 10:10 No provider procedures requiring assistance completed. Patient admitted, IV remains in ss place. Administered Medications: 07:46 Drug: Albuterol - atroVENT (3:1) (2.5 mg - 0.5 mg) 3 ml Route: Nebulizer; sv 08:30 Follow up: Response: No adverse reaction; Marked relief of symptoms sv 07:47 Drug: SOLU-Medrol 125 mg Route: IVP; Site: right forearm; ss 07:57 Follow up: Response: No adverse reaction sv 08:46 Drug: LevaQUIN 750 mg Volume: 150 ml; Route: IVPB; Infused Over: 90 mins; Site: right ss forearm; 10:11 Follow up: IV Status: Completed infusion ss 08:46 Drug: NS 0.9% 500 ml Route: IV; Rate: bolus; Site: right forearm; ss 10:10 Follow up: IV Status: Infusion continued upon admission ss 10:10 Not Given (bolus still infusing at this time. Maintenance fluids to be given on floor): NS 0.9% 500 ml IV at 100 ml/hr continuous Outcome: 09:19 Decision to Hospitalize by Provider. cp 10:10 Admitted to Tele accompanied by tech, family with patient, via stretcher, room 411, with chart, Report called to LIZ Patel 10:10 Condition: improved 10:10 Instructed on the need for admit. 10:11 Patient left the ED. Signatures: Dispatcher [employer] Mercy Sanderson RN RN Indira Gunter RN RN Leopoldo Hall, PA PA cp Corrections: (The following items were deleted from the chart) 07:36 07:33 Care prior to arrival: None. [facility] 08:46 08:45 NS 0.9% 500 ml IV at bolus in right antecubital ss
--- NOTE | 2019-02-25 10:10 | RAD REPORT ---
EXAM DESCRIPTION: [place] Single View02/25/2019 8:04 am CLINICAL HISTORY: Shortness of breath COMPARISON: April 2018 FINDINGS: Mild to moderate bilateral pulmonary opacities. Heart is normal size Postsurgical changes involve the chest. Pacemaker leads are in place. IMPRESSION: [id number] bilateral pulmonary opacities probably represent pulmonary edema
[2019-02-25] MEDS ORDERED: ACETAMINOPHEN 500 MG TAB PO PRN (10:11)
[2019-02-25] MEDS ORDERED: ONDANSETRON 4 MG/2 ML VIAL IV PRN (10:11)
[2019-02-25] MEDS: NA CHLORIDE 0.9% 1,000 ML IV SCH ×2 (10:59→17:42)
[2019-02-25 11:49] LABS: Blood Morphology Comment NOT SEEN (NOT SEEN); Platelet Estimate ADEQ; Urine White Blood Cell Casts OK
[2019-02-25] MEDS: FUROSEMIDE 40 MG/4 ML VIAL IV SCH (17:08)
[2019-02-25] MEDS ORDERED: POTASSIUM CL SA 10 MEQ TAB PO ONE (21:00)
[2019-02-25] MEDS: CARVEDILOL 3.125 MG TAB PO SCH (21:00)
[2019-02-25] MEDS ORDERED: CEFTRIAXONE 1 GM/NS 50 ML 1 GM/50 ML BAG IV SCH (21:00)
[2019-02-25] MEDS ORDERED: CEFTRIAXONE/SWI 1gm 1 GM/10 ML SYR IV SCH (21:00)
[2019-02-25] MEDS: ATORVASTATIN 10 MG TAB PO SCH (21:46)
[2019-02-25 22:36] LABS: Urine Bacteria <20 /HPF (NONE SEEN); Urine Culture Reflex Order NOT NEEDED; Urine RBC NONE SEEN /HPF (NONE SEEN)
--- NOTE | 2019-02-25 22:55 | HP ---
Date of Admission: 02/25/2019 Code Status: Full. Chief Complaint: Shortness of breath, cough. History Of Present Illness: Patient is a 68-year-old male with a past medical history of atrial fibr illation, on aspirin; history of recurrent GI bleed, who is in the process of following up with GI do ctor; hypertension; hyperlipidemia; coronary artery disease, status post CABG, comes in with shortnes s of breath with cough, congestion. Patient denies any fevers or chills. Patient had dyspnea upon e xertion as well. Patient states his symptoms are constant, moderate, progressively worsening. He de nies any ill contacts. No alleviating factors. Patient's symptoms are aggravated with exertion. Nahum nova also notes that he has had a weight loss of approximately 30 pounds or so in the past couple of months due to decreased appetite. Patient states he has been having bloody stools, is in the proces s of being worked up by a GI doctor. In the ER, his workup revealed a white count of 17.8. Chest x- ray showed pneumonia. Procalcitonin was 0.38, lactate was 1.7. Patient was then referred for admiss ion. When seen in the ER, he was awake, alert, oriented x3, in some mild respiratory distress. Lynn ent had to be placed on 5 L via nasal cannula, was hypoxic when brought in by EMS at 85%. Past Medical History: Atrial fibrillation, on aspirin; hypertension; coronary artery disease, status post bypass surgery; hypercholesterolemia; and GI bleed. Past Surgical History: Coronary artery bypass graft, 2-vessel disease; appendectomy; hernia surgery with mesh placement; defibrillator placement, last reprogrammed in August of this year. Allergies: PENICILLIN, CAUSES ANAPHYLAXIS. Social History: Patient is a former smoker. No alcohol use or illicit drug use. Patient lives at [facility]. Independent in his activities of daily living. Family History: Father has heart disease. Review of Systems: Ten-point system reviewed, negative except as per HPI. Physical Examination: Vital Signs: Blood pressure 111/75; pulse 79; respirations 25; temperature 98; O2 of 96% on nonrebre ather, initially 85% on room air. General: Awake, alert, oriented x3, elderly male, in some mild respiratory distress, frail, cachecti c. BMI is 18. HEENT: Normocephalic, atraumatic. PERRLA. EOMI. Poor dentition. Conjunctivae anicteric. Neck: Supple. Trachea midline. CV: S1, S2, irregularly irregular. Peripheral pulses present. Respiratory: Diminished breath sounds and crackles present. No wheezing or stridor. Patient is sli ghtly tachypneic Gastrointestinal: Abdomen is soft, nontender, nondistended. Positive bowel sounds. No guarding or rigidity. Extremities: No clubbing, cyanosis, or edema. No calf tenderness. Neuro: Cranial nerves 2 through 12 intact grossly. No focal neurological deficit. Speech is normal . Skin: No rashes. Normal skin turgor. Laboratory Data: Sodium 135, potassium 3.7, chloride 102, CO2 of 21, BUN 14, creatinine 1.0, glucose 124, lactate 1.7, calcium 7.2, magnesium 2.2, troponin 0.02, BNP 3156, procalcitonin 0.38. WBC 17.8 , H and H 12.1 and 38, platelets 41, MCV 79, MCH 25. INR 1.25. Blood cultures pending. Stool occul t blood pending. Sputum cultures pending. Chest x-ray shows [id number] bilateral pulmonary opacities, probably represent pulmonary edema. Postsurgical changes involve the chest. Pacemaker leads in place. Assessment And Plan: A 68-year-old male with. 1.Acute respiratory failure with hypoxia. Patient requiring nonrebreather, hypoxic at 85%, likely d ue to congestive heart failure and overlying pneumonia. We will continue with supplemental O2. 2.Pneumonia, bilateral. We will continue with IV antibiotics, follow up on cultures and continue [facility] supportive care. 3.Acute on chronic systolic heart failure. Patient is status post AICD. BNP is elevated. Chest x- ray shows pulmonary edema. We will start on diuretics. Continue with congestive heart failure guide lines. Monitor I's and O's, free fluid restriction. Last echocardiogram from May 2018 shows EF 45% to 49%. 4.Status post pacemaker. 5.Coronary artery disease. [place] artery and ruby heart status post CABG without angina, stable. We will resume home medications. 6.Subacute gastrointestinal bleed. Patient has been having bleeds for the past 2 years, about to un dergo workup with GI. We will hold aspirin for now. Monitor H and H, transfuse as needed. 7.Essential hypertension. Resume home medications as appropriate. 8.Hypercholesterolemia. Patient apparently had 2 different doses of statin with him. I explained t o him that you generally be on one. We will resume the higher dose of pravastatin. 9.Atrial fibrillation, chronic, rate controlled. Continue beta parveen. Hold aspirin for now due t o gastrointestinal bleed. Patient is on Protonix. 10.Weight loss due to decreased appetite, related to gastrointestinal discomfort from bleeding. Nisha ana m needs GI workup. He is scheduled to see Dr. Pickering soon. No GI coverage available at this time. Admit patient to Med-Surg, place as inpatient. Length of stay greater than 2 midnights. MICKEY Voice ID: [id number]
[2019-02-26] MEDS: NA CHLORIDE 0.9% 1,000 ML IV SCH (03:06)
[2019-02-26] MEDS: PANTOPRAZOLE 40MG TABLET PO SCH (05:44)
[2019-02-26 06:02] LABS: Absolute Lymphocytes (CBC) 0.7 K/uL (0.7-4.9); Basophils % 0.4 % (0-1.3); Hematocrit 33.4 % (39.6-49.0); Lymphocytes % 3.1 % (15.3-44.8); MPV 7.7 fL (7.6-11.3); RBC Red Blood Cell Count 4.19 M/uL (4.33-5.43)
[2019-02-26 06:19] LABS: Albumin 1.6 g/dL (3.4-5.0); Bilirubin Total 0.3 mg/dL (0.2-1.0); Potassium 3.7 mmol/L (3.5-5.1); Protein, Total 4.9 g/dL (6.4-8.2)
--- NOTE | 2019-02-26 06:30 | EKG ---
Test Date: 2019-02-25 Test Time: 07:56:02 [employer]: ILENE MEASUREMENT RESULTS: Intervals: Rate: 73 SC: 196 QRSD: 116 QT: 500 QTc: 550 [place]: P: -14 SC: 196 QRS: 83 T: 66 INTERPRETIVE STATEMENTS: Sinus rhythm with occasional premature ventricular complexes Septal infarct, age undetermined Prolonged QT Abnormal ECG Compared to ECG 05/02/2018 00:36:15 Ventricular premature complex(es) now present Prolonged QT interval now present Myocardial infarct finding still present Electronically Signed On 02-26-19 06:29:29 CDT by Jose Weinstein
[2019-02-26 07:14] LABS: Blood Morphology Comment NOT SEEN (NOT SEEN); Platelet Estimate ADEQ
[2019-02-26] MEDS: AMIODARONE HCL 200 MG TAB PO SCH (08:40)
[2019-02-26] MEDS: CARVEDILOL 3.125 MG TAB PO SCH ×2 (08:41→22:15)
[2019-02-26] MEDS: LOSARTAN POTASSIUM 50 MG TABLET PO SCH (08:43)
[2019-02-26] MEDS: FUROSEMIDE 40 MG/4 ML VIAL IV SCH ×2 (08:43→16:41)
[2019-02-26] MEDS: Levofloxacin 750mg IV 750 MG/150 ML BAG IV SCH (08:46)
[2019-02-26] MEDS ORDERED: AZITHROMYCIN IV 500 MG in NA CHLORIDE 0.9% 250 ML IVPB SCH (09:00)
--- NOTE | 2019-02-26 09:52 | RAD REPORT ---
EXAM DESCRIPTION: RAD - Chest Single View - 02/26/2019 9:21 am CLINICAL HISTORY: Pneumonia, hypoxia COMPARISON: February 25 TECHNIQUE: AP portable chest image was obtained 0921 hours . FINDINGS: Since the prior study there has been significant progression of the interstitial and alveo lar opacification in each lung field. Findings are most pronounced in each mid lung field. Defibrillator is in place. No additional tube or line. Heart and vasculature are normal. No measurabl e pleural effusion and no pneumothorax. No acute bony abnormality seen. No acute aortic findings susp ected. IMPRESSION: Moderate severity worsening of the bilateral interstitial and alveolar opacities since t he prior day study.
--- NOTE | 2019-02-26 10:12 | P.CNS ---
Date of Consult: 02/26/19 Reason for Consult: Possible pneumonia Chief Complaint: Shortness of breath cough History of Present Illness: Patient is 68 years of age former heavy smoker admitted withchronic productive cough has been complaining of chronic progressive dyspnea for the past 6 months and has had had bloody stools for the past 6 weeks. No history of COPD he has a pacemaker and defibrillator with a history of congestive heart failure denies any lower extremity edema BNP white count both elevated Allergies Penicillins Adverse Reaction (Severe, Verified 02/25/19 11:20) Anaphylaxis Home Medications: Losartan Potassium 50 mg PO DAILY 12/21/15 Amiodarone HCl 200 mg PO DAILY 12/07/17 Aspirin Chewable [Aspirin Chewable*] 1 tab PO DAILY 12/07/17 Carvedilol 1 tab PO BID 12/07/17 Pantoprazole [Protonix Tab*] 40 mg PO DAILY #30 tab 12/08/17 Pravastatin Sodium [Pravachol] 80 mg PO BEDTIME 05/03/18 Atorvastatin Calcium [Lipitor*] 10 mg PO BEDTIME 02/25/19 - Past Medical/Surgical History Diabetic: No -: htn -: Afib -: CAD -: hypercholesterolemia -: double bypass -: appendectomy -: defibrillator - Family History Father Medical History: Heart disease - Social History Smoking Status: Former smoker Alcohol use: No CD- Drugs: No Caffeine use: Yes Place of Residence: Home Review of Systems General: Weakness Respiratory: Cough, Shortness of Breath Gastrointestinal: Melena Physical Examination Temp Pulse Resp BP Pulse Ox 98.0 F 61 28 H 98/53 L 94 02/26/19 08:00 02/26/19 08:43 02/26/19 08:00 02/26/19 08:43 02/26/19 08:00 General: Alert, Oriented x3 HEENT: Atraumatic Neck: Supple Respiratory: Crackles/rales (Crackles more prominent on the right base) Cardiovascular: No edema, Normal pulses, Regular rate/rhythm, Normal S1 S2 Gastrointestinal: Normal bowel sounds, Soft and benign, Non-distended Musculoskeletal: No clubbing, No swelling, No contractures Integumentary: No rashes, No breakdown Laboratory Data (last 24 hrs) 02/25/19 07:05: WBC 17.8 H, Hgb 12.1 L, Hct 38.0 L, Plt Count 481 H - Problems (1) Pneumonia Current Visit: Yes Status: Acute Plan: Patient is 68 years of age admitted with the melenic stools incidentally has cough shortness of breath has become worse white count is elevated BNP is also elevated chest x-ray shows diffuse bilateral changes the short of breath hypoxic former heavy smoker patient has a mild microcytic anemia he has had GI bleeding before and has had endoscopy and colonoscopy done last year chemistries are unremarkable he may have underlying COPD continue with antibiotics I have ordered a CT scan of the chest without contrast arterial blood gas bronchodilators possible heart failure start on diuretics (2) Respiratory failure Current Visit: Yes Status: Acute Plan: Patient is in respiratory distress on a non-rebreather at BiPAP arterial blood gases CT scan of the chest Qualifiers: Chronicity: acute
--- NOTE | 2019-02-26 11:25 | RAD REPORT ---
EXAM DESCRIPTION: CT - Thorax Wo Con - 02/26/2019 10:53 am CLINICAL HISTORY: Respiratory failure, long smoking history with productive cough COMPARISON: Portable chest February 26, CT chest December 2012 TECHNIQUE: Axial 5 mm thick images of the chest were obtained without IV contrast. All CT scans are performed using dose optimization technique as appropriate and may include automated exposure control or mA/KV adjustment according to patient size. FINDINGS: Right apical pleural thickening is progressive from 2012. Pleural calcifications are prese nt. There is no clear masslike component to suspect apical malignancy. Fibro emphysematous lung rausch es are present as a baseline. Interstitial and hazy alveolar opacities are present in the posterior i nferior right upper lobe and in the posterior right middle lobe. Similar opacification seen in the mi d and lower portions of the left upper lobe along the fissure. More prominent interstitial and alveol ar opacification present in the right lower lobe with numerous areas of nodular airspace disease abut ting the posterior pleura. Changes are most pronounced in the left lower lobe. In the superior segment there is clustered areas of consolidated lung parenchyma in addition to scattered interstitial and alveolar opacities. Minimal bilateral pleural effusions are present. No pneumothorax. No pleural based mass. Numerous mediastinal lymph nodes are present. There is a prominent fullness to the subcarinal region 2.1 cm AP x 3.6 cm TR. No gross aortic or pulmonary artery finding suspected. Assessment is limited in the absence of IV contrast. No pericardial thickening or effusion. Dense Coronary artery calcifica tions present. No chest wall mass or abnormal axillary lymphadenopathy. Left-sided pacemaker in place. IMPRESSION: Consolidated pneumonia in the superior segment left upper lobe with additional areas of pneumonia in the lower left lung field. Interstitial and alveolar opacities in all other lobes are likely pneumonia as well but without conso lidation. Mediastinal lymphadenopathy is abnormal but may simply be reactive from the pneumonia findings. Foll ow-up CT imaging can be utilized to assure resolution of the mediastinal adenopathy and to assure no mass is obscured by the consolidated parenchyma in the left lower lobe.
[2019-02-26 11:39] LABS: Arterial Blood Carboxyhemoglob 1.2 % (0-1.5); Blood Gas Oxyhemoglobin 85.7 % (94-97); Blood O2 Saturation 87.6 % (92-98.5)
--- NOTE | 2019-02-26 13:12 | PN ---
Date of Progress Note: 02/26/2019 Subjective: Patient is seen and examined. Chart reviewed and case discussed with RN. The patient s eems to have further respiratory distress with hypoxia requiring non-rebreather. Medications: List reviewed. Physical Examination: Vital Signs: Temperature 98, heart rate 61, blood pressure 98/53, respirations 28, O2 of 94% on 15 L via non-rebreather. General: Awake, alert, oriented x3. Elderly male, frail. BMI 18. In acute respiratory distress. CV: S1, S2. Peripheral pulses present. Respiratory: Diminished breath sounds. Crackles heard. No wheezing or stridor. Gastrointestinal: Abdomen is soft, nontender, nondistended. Positive bowel sounds. No guarding or rigidity. Extremities: No clubbing, cyanosis, or edema. Neurologic: Nonfocal. Laboratory Data: Sodium 141, potassium 3.7, chloride 109, CO2 23, BUN 19, creatinine 0.96, glucose 1 29, calcium 7, albumin 1.6. WBC 23.3, hemoglobin and hematocrit 10.8 and 33.9, platelets 501, neutro phils 90%. Blood cultures have no growth to date. Assessment: A 68-year-old male with. 1.Acute respiratory failure with hypoxia, still on nonrebreather, likely secondary to heart failure and pneumonia. We will consult Pulmonology. 2.Bilateral pneumonia. Continue IV antibiotics. WBC count has gone up to 23,000. We will follow u p on culture results. Repeat chest x-ray. 3.Acute on chronic systolic heart failure. We will continue with diuresis. Continue congestive hea rt failure guidelines. We will monitor I's and O's and free fluid restriction. 4.Status post pacemaker. 5.Coronary artery disease [place] artery and [place] heart status post coronary artery bypass graft [facility] angina stable. 6.Status subacute gastrointestinal bleed. The patient has had gastrointestinal bleed for the past c ouple of years. Awaiting outpatient followup with GI. Currently, no GI available. Hemoccult stool is pending. 7.Essential hypertension, stable. 8.Hypercholesterolemia. Continue with statin. 9.Chronic atrial fibrillation, rate controlled. Continue with beta-parveen, aspirin on hold due to gastrointestinal bleed. 10.Failure to thrive with severe protein-calorie malnutrition, albumin is 1.6. We will continue wit h protein supplements. 11.Deep vein thrombosis prophylaxis with sequential compression devices no chemical anticoagulation due to gastrointestinal bleed. Plan: As above. /WENYD Voice ID: [id number] Report ID: [id number]
[2019-02-26] MEDS ORDERED: POTASSIUM CL SA 10 MEQ TAB PO ONE (14:00)
[2019-02-26] MEDS: IPRATROPIUM BROM 0.5MG/2.5ML NEB SCH ×2 (14:11→19:53)
[2019-02-26] MEDS: ARFORMOTEROL TARTRATE 15 MCG/2 ML VIAL.NEB NEB SCH ×2 (14:11→19:53)
[2019-02-26] MEDS: ATORVASTATIN 10 MG TAB PO SCH (20:40)
[2019-02-27] MEDS: IPRATROPIUM BROM 0.5MG/2.5ML NEB SCH ×4 (00:55→20:00)
[2019-02-27] MEDS: ALBUTEROL 2.5 MG/3 ML NEB SOL NEB PRN ×3 (00:55→13:20)
[2019-02-27] MEDS: PANTOPRAZOLE 40MG TABLET PO SCH (05:42)
[2019-02-27 06:08] LABS: Absolute Lymphocytes (CBC) 0.9 K/uL (0.7-4.9); Basophils % 0.2 % (0-1.3); Hematocrit 35.6 % (39.6-49.0); Lymphocytes % 4.3 % (15.3-44.8); MPV 7.5 fL (7.6-11.3); RBC Red Blood Cell Count 4.56 M/uL (4.33-5.43)
[2019-02-27 06:27] LABS: Albumin 1.8 g/dL (3.4-5.0); Bilirubin Total 0.6 mg/dL (0.2-1.0); Potassium 3.7 mmol/L (3.5-5.1); Protein, Total 5.3 g/dL (6.4-8.2)
[2019-02-27] MEDS: ARFORMOTEROL TARTRATE 15 MCG/2 ML VIAL.NEB NEB SCH ×2 (07:30→20:00)
[2019-02-27] MEDS: CARVEDILOL 3.125 MG TAB PO SCH ×2 (08:29→09:00)
[2019-02-27] MEDS: FUROSEMIDE 40 MG/4 ML VIAL IV SCH (08:30)
[2019-02-27] MEDS: AMIODARONE HCL 200 MG TAB PO SCH (08:30)
[2019-02-27] MEDS: Levofloxacin 750mg IV 750 MG/150 ML BAG IV SCH (08:30)
[2019-02-27] MEDS: LOSARTAN POTASSIUM 50 MG TABLET PO SCH ×2 (08:30→09:00)
[2019-02-27] MEDS ORDERED: POTASSIUM CL SA 10 MEQ TAB PO ONE (09:00)
--- NOTE | 2019-02-27 12:15 | P.PN ---
Subjective Date of Service: 02/27/19 Chief Complaint: Respiratory failure No changes still hypoxic is not coughing up productive phlegm cultures are so far all negative patient is on BiPAP Review of Systems General: Weakness Respiratory: Cough, Shortness of Breath Physical Examination - Vital Signs Temperature: 98.0 F Blood Pressure: 92/46 Pulse: 70 Respirations: 32 Pulse Ox (%): 94 - Physical Exam General: Alert, Oriented x3, Moderate distress Respiratory: Crackles/rales (Crackles bilaterally) Cardiovascular: No edema, Normal pulses Assessment & Plan - Problems (Diagnosis) (1) Pneumonia Current Visit: Yes Status: Acute Plan: Patient admitted with respiratory failure bilateral pneumonia cultures negative hypoxic respiratory failure chest CT scan shows diffuse bilateral interstitial changes patient's white count is elevated blood pressure low will reduce the dose of Lasix Dc losartan and Coreg for now patient is in normal sinus rhythm echocardiogram pending (2) Respiratory failure Current Visit: Yes Status: Acute Plan: Patient is in respiratory distress on a non-rebreather at BiPAP arterial blood gases CT scan of the chest Qualifiers: Chronicity: acute
[2019-02-27] MEDS: GUAIFENESIN/CODEINE 5ML UCUP PO PRN ×2 (14:03→20:21)
--- NOTE | 2019-02-27 16:01 | PN ---
Date of Progress Note: 02/27/2019 Subjective: Patient is seen and examined. Chart reviewed and case discussed with RN and Dr. Lua. Patient now on BiPAP and still having respiratory distress. Does not report any chest pain. Does report some difficulty breathing. Medications: List reviewed. Physical Examination: Vital Signs: Temperature 98, heart rate 70, blood pressure 99/55, respirations 32, O2 94% on BiPAP, 60% FiO2. General: Awake, alert, oriented x3. Elderly male in mild acute respiratory distress. CV: S1, S2. Regular rate and rhythm. Peripheral pulses present. Respiratory: Diminished breath sounds. No wheezing. Patient does have some crackles. Gastrointestinal: Abdomen is soft, nontender, nondistended. Positive bowel sounds. No guarding or rigidity. Extremities: No clubbing, cyanosis, or edema. No calf tenderness. Neurologic: Nonfocal. Laboratory Data: Sodium 139, potassium 3.7, chloride 104, CO2 of 28, BUN 17, creatinine 1.01, glucose 110, calcium 7.3, AST 87, WBC 20.7, H and H of 11.4 and 35.6, platelets 486, neutrophils 92%. Blood cultures, no growth to date. Sputum culture, normal quantity of respiratory doron. CT chest shows consolidated pneumonia in the superior segment of the left upper lobe with additional areas of pneumonia in the lower left lung field. Interstitial and alveolar opacities in all other lobes are likely pneumonia as well, but without consolidation. Mediastinal lymphadenopathy is abnormal, but may simply be reactive from the pneumonia findings. Followup CT to ensure resolution of mediastinal adenopathy and to ensure no masses obscured by the consolidated parenchyma in the left lobe. Chest x-ray shows moderate severity worsening of the bilateral interstitial and alveolar opacities since prior day study. Assessment: A 68-year-old male with: 1. Acute respiratory failure with hypoxia, currently on BiPAP. Imaging study shows worsening secondary to pneumonia and heart failure. We will continue on BiPAP and wean as tolerated. 2. Bilateral pneumonia, worse on the left. We will continue with IV antibiotics. White count improving down to 20,000 with neutrophilia. Follow up on cultures, no growth to date. Repeat chest x-ray shows worsening. 3. Acute on chronic systolic heart failure. We will continue Lasix IV. Continue congestive heart failure guidelines. Monitor I's and O's, free fluid restriction, daily weights. 4. Status post pacemaker, AICD. 5. Coronary artery disease, [place] artery, [place] heart, status post coronary artery bypass graft without angina, stable. 6. Subacute gastrointestinal bleed. Patient has been having some gastrointestinal bleed for the past couple of years, worsening in the past few weeks. Currently awaiting GI eval as an outpatient. Aspirin is on hold. 7. Essential hypertension, stable. 8. Mixed hypercholesterolemia. We will continue with statin. 9. Chronic atrial fibrillation, rate controlled, currently in sinus rhythm. We will continue beta-parveen. Aspirin on hold due to gastrointestinal bleed. 10. Severe protein-calorie malnutrition. We will continue with protein supplementation. 11. Deep venous thrombosis prophylaxis with SCDs. No chemical anticoagulation due to gastrointestinal bleed. /WENDY Voice ID: [id number] Report ID: [id number] MTDGibson
[2019-02-27] MEDS: ATORVASTATIN 10 MG TAB PO SCH (20:21)
[2019-02-27] MEDS: ENSURE ENLIVE 237 ML CAN PO SCH (20:21)
[2019-02-27] MEDS: METHYLPREDNISOLONE 40 MG INJ IV SCH (20:21)
[2019-02-28] MEDS: IPRATROPIUM BROM 0.5MG/2.5ML NEB SCH ×4 (02:00→19:55)
[2019-02-28] MEDS: PANTOPRAZOLE 40MG TABLET PO SCH (06:27)
[2019-02-28 06:38] LABS: Albumin 1.7 g/dL (3.4-5.0); Bilirubin Total 0.7 mg/dL (0.2-1.0); Potassium 3.7 mmol/L (3.5-5.1); Protein, Total 5.3 g/dL (6.4-8.2)
[2019-02-28] MEDS: ARFORMOTEROL TARTRATE 15 MCG/2 ML VIAL.NEB NEB SCH ×2 (07:48→19:55)
[2019-02-28] MEDS: ALBUTEROL 2.5 MG/3 ML NEB SOL NEB PRN ×2 (07:48→13:40)
[2019-02-28] MEDS: ENSURE ENLIVE 237 ML CAN PO SCH ×2 (09:00→21:00)
[2019-02-28] MEDS: FUROSEMIDE 40 MG/4 ML VIAL IV SCH (09:00)
[2019-02-28] MEDS ORDERED: POTASSIUM CL SA 10 MEQ TAB PO ONE (09:00)
[2019-02-28] MEDS: METHYLPREDNISOLONE 40 MG INJ IV SCH ×2 (09:19→20:47)
[2019-02-28] MEDS: Levofloxacin 750mg IV 750 MG/150 ML BAG IV SCH (09:19)
[2019-02-28] MEDS: AMIODARONE HCL 200 MG TAB PO SCH (09:20)
--- NOTE | 2019-02-28 09:59 | RAD REPORT ---
EXAM DESCRIPTION: RAD - Chest Single View - 02/28/2019 9:53 am CLINICAL HISTORY: shortness of breath Chest pain. COMPARISON: Chest Single View dated 02/26/2019; Chest Single View dated 02/25/2019; Chest Single View dated 05/01/2018; Chest Single View dated 12/06/2017 FINDINGS: Portable technique limits examination quality. Bilateral pulmonary opacities are noted, slightly improved particularly on the right since the compar ative study. Left hemidiaphragm is mildly elevated. Changes of prior CABG are noted. Single lead pace r/defibrillator device is present. IMPRESSION: Fractional improvement in right lung aeration noted.
--- NOTE | 2019-02-28 15:12 | P.PN ---
Subjective Date of Service: 02/28/19 Chief Complaint: Respiratory failure Subjective: No new changes Patient seen and examined at bedside. Chart reviewed and case discussed with nursing staff. Patient continues to require bi-pap and continues to have respiratory distress. Review of Systems 10-point ROS is otherwise unremarkable Physical Examination - Vital Signs Temperature: 97.7 F Blood Pressure: 95/54 Pulse: 71 Respirations: 20 Pulse Ox (%): 91 - Physical Exam General: Alert, Oriented x3, Acute distress HEENT: Atraumatic, PERRLA, EOMI Neck: Supple, JVD not distended Respiratory: Dull, Crackles/rales Cardiovascular: Regular rate/rhythm, Normal S1 S2 Gastrointestinal: Normal bowel sounds, No tenderness Musculoskeletal: No tenderness Integumentary: No rashes Neurological: Normal speech, Normal tone, Normal affect Assessment And Plan - Plan A 68-year-old male with: Acute respiratory failure with hypoxia, currently on BiPAP. Imaging study shows worsening secondary to pneumonia and heart failure. We will continue on BiPAP and wean as tolerated. Bilateral pneumonia, worse on the left. We will continue with IV antibiotics. Follow up on cultures, no growth to date. Repeat chest x-ray today with mild improvement in aeration. Acute on chronic systolic heart failure. We will continue Lasix IV. Continue congestive heart failure guidelines. Monitor I's and O's, free fluid restriction, daily weights. Status post pacemaker, AICD. Coronary artery disease, [place] artery, [place] heart, status post coronary artery bypass graft without angina, stable. Subacute gastrointestinal bleed. Patient has been having some gastrointestinal bleed for the past couple of years, worsening in the past few weeks. Currently awaiting GI eval as an outpatient. Aspirin is on hold. Essential hypertension, stable. Mixed hypercholesterolemia. We will continue with statin. Chronic atrial fibrillation, rate controlled, currently in sinus rhythm. We will continue beta-parveen. Aspirin on hold due to gastrointestinal bleed. Severe protein-calorie malnutrition. We will continue with protein supplementation. Deep venous thrombosis prophylaxis with SCDs. No chemical anticoagulation due to gastrointestinal bleed.
[2019-02-28] MEDS: BENZONATATE 100 MG CAP PO PRN (20:47)
[2019-02-28] MEDS: ATORVASTATIN 10 MG TAB PO SCH (20:47)
[2019-03-01] MEDS: ALBUTEROL 2.5 MG/3 ML NEB SOL NEB PRN ×2 (01:40→13:40)
[2019-03-01] MEDS: IPRATROPIUM BROM 0.5MG/2.5ML NEB SCH ×4 (01:40→20:00)
[2019-03-01 06:16] LABS: Absolute Lymphocytes (CBC) 0.5 K/uL (0.7-4.9); Hematocrit 33.3 % (39.6-49.0); Lymphocytes % 2.8 % (15.3-44.8); MPV 8.2 fL (7.6-11.3); RBC Red Blood Cell Count 4.28 M/uL (4.33-5.43)
[2019-03-01 06:25] LABS: Albumin 1.8 g/dL (3.4-5.0); Bilirubin Total 0.5 mg/dL (0.2-1.0); Potassium 3.9 mmol/L (3.5-5.1); Protein, Total 5.2 g/dL (6.4-8.2)
[2019-03-01] MEDS: ARFORMOTEROL TARTRATE 15 MCG/2 ML VIAL.NEB NEB SCH ×2 (07:25→20:00)
[2019-03-01] MEDS: PANTOPRAZOLE 40MG TABLET PO SCH (08:00)
[2019-03-01] MEDS: ENSURE ENLIVE 237 ML CAN PO SCH ×2 (08:24→21:00)
[2019-03-01] MEDS: AMIODARONE HCL 200 MG TAB PO SCH (08:24)
[2019-03-01] MEDS: FUROSEMIDE 40 MG/4 ML VIAL IV SCH (08:25)
[2019-03-01] MEDS: Levofloxacin 750mg IV 750 MG/150 ML BAG IV SCH (08:26)
[2019-03-01] MEDS: METHYLPREDNISOLONE 40 MG INJ IV SCH (08:26)
[2019-03-01] MEDS: BENZONATATE 100 MG CAP PO PRN (08:32)
[2019-03-01] MEDS ORDERED: POTASSIUM 25 MEQ EFFERV TAB PO ONE (09:00)
--- NOTE | 2019-03-01 12:31 | P.PN ---
Subjective Date of Service: 03/01/19 Chief Complaint: Respiratory failure No change patient is still requiring significant amount of oxygen productive cough no response to steroids sputum shows Mr HUYNH white count is declining complains of melenic stools Review of Systems General: Weakness Respiratory: Cough, Shortness of Breath Physical Examination - Vital Signs Temperature: 97.8 F Blood Pressure: 101/58 Pulse: 80 Respirations: 17 Pulse Ox (%): 97 - Physical Exam General: Alert, Oriented x3, Mild distress Neck: Supple Respiratory: Crackles/rales, Expiratory wheezes Cardiovascular: No edema, Normal S1 S2 Assessment & Plan - Problems (Diagnosis) (1) Pneumonia Current Visit: Yes Status: Acute Plan: Patient admitted with respiratory failure bilateral pneumonia ARDS from the infection Mr HUYNH isolated from the sputum add doxycycline Dc steroids consider L tach labs reviewed white count declining patient has a microcytic anemia vital signs stable Dc steroids change to spironolactone Dc Lasix 2D echocardiogram with Doppler Qualifiers: Pneumonia type: due to methicillin-resistant Staphylococcus aureus (MRSA) Laterality: bilateral (2) Respiratory failure Current Visit: Yes Status: Acute Plan: Patient is in respiratory distress on a non-rebreather at BiPAP arterial blood gases CT scan of the chest Qualifiers: Chronicity: acute
--- NOTE | 2019-03-01 18:02 | P.PN ---
Subjective Date of Service: 03/01/19 Chief Complaint: Respiratory failure Patient seen and examined at bedside. Chart reviewed and case discussed with nursing staff. Patient continues to require bi-pap and continues to have respiratory distress. Review of Systems 10-point ROS is otherwise unremarkable Physical Examination - Vital Signs Temperature: 99.1 F Blood Pressure: 96/49 Pulse: 75 Respirations: 18 Pulse Ox (%): 94 - Physical Exam General: Alert, Cachectic, Moderate distress HEENT: Atraumatic, PERRLA, EOMI Neck: Supple, JVD not distended Respiratory: Dull, Crackles/rales, Expiratory wheezes Cardiovascular: Regular rate/rhythm, Normal S1 S2 Gastrointestinal: Normal bowel sounds, No tenderness Musculoskeletal: No tenderness Integumentary: No rashes Neurological: Normal speech, Normal tone, Normal affect Lymphatics: No axilla or inguinal lymphadenopathy Assessment And Plan - Plan A 68-year-old male with: Acute respiratory failure with hypoxia, currently on BiPAP. Imaging study shows worsening secondary to pneumonia and heart failure. We will continue on BiPAP and wean as tolerated. Bilateral pneumonia, worse on the left. Sputum cultures positive for MRSA, SENSITIVE TO LEVAQUIN. IV antibiotics converted to oral Levaquin and doxycycline. Repeat chest x-ray today with mild improvement in aeration. Acute on chronic systolic heart failure. Discontinue IV Lasix, start spironolactone. Continue congestive heart failure guidelines. Echo ordered, pending. Monitor I's and O's, free fluid restriction, daily weights. Status post pacemaker, AICD. Coronary artery disease, [place] artery, [place] heart, status post coronary artery bypass graft without angina, stable. Subacute gastrointestinal bleed. Patient has been having some gastrointestinal bleed for the past couple of years, worsening in the past few weeks. Currently awaiting GI eval as an outpatient. Aspirin is on hold. Essential hypertension, stable. Mixed hypercholesterolemia. We will continue with statin. Chronic atrial fibrillation, rate controlled, currently in sinus rhythm. We will continue beta-parveen. Aspirin on hold due to gastrointestinal bleed. Severe protein-calorie malnutrition. We will continue with protein supplementation. Deep venous thrombosis prophylaxis with SCDs. No chemical anticoagulation due to gastrointestinal bleed. Plan: Patient will likely benefit from long-term acute care facility referral. Social work consulted.
[2019-03-01] MEDS: SPIRONOLACTONE 25 MG TABLET PO SCH (20:46)
[2019-03-01] MEDS: ATORVASTATIN 10 MG TAB PO SCH (20:46)
[2019-03-01] MEDS: DOXYCYCLINE 100 MG CAP PO SCH (20:46)
[2019-03-01] MEDS ORDERED: predniSONE 20 MG TAB PO SCH (21:00)
[2019-03-02] MEDS: IPRATROPIUM BROM 0.5MG/2.5ML NEB SCH ×4 (02:00→20:00)
[2019-03-02 06:18] LABS: Absolute Lymphocytes (CBC) 0.8 K/uL (0.7-4.9); Basophils % 0.2 % (0-1.3); Hematocrit 34.9 % (39.6-49.0); Lymphocytes % 4.1 % (15.3-44.8); RBC Red Blood Cell Count 4.51 M/uL (4.33-5.43)
[2019-03-02 06:23] LABS: Albumin 1.9 g/dL (3.4-5.0); Bilirubin Total 0.7 mg/dL (0.2-1.0); Potassium 3.7 mmol/L (3.5-5.1); Protein, Total 5.2 g/dL (6.4-8.2)
[2019-03-02] MEDS: PANTOPRAZOLE 40MG TABLET PO SCH (06:52)
[2019-03-02] MEDS: ARFORMOTEROL TARTRATE 15 MCG/2 ML VIAL.NEB NEB SCH ×2 (08:00→20:00)
[2019-03-02] MEDS: AMIODARONE HCL 200 MG TAB PO SCH (08:24)
[2019-03-02] MEDS: ENSURE ENLIVE 237 ML CAN PO SCH ×2 (08:24→21:00)
[2019-03-02] MEDS: DOXYCYCLINE 100 MG CAP PO SCH ×2 (08:24→22:54)
[2019-03-02] MEDS: levoFLOXacin 750 MG TAB PO SCH (08:24)
[2019-03-02] MEDS ORDERED: POTASSIUM CL SA 10 MEQ TAB PO ONE (09:00)
[2019-03-02] MEDS: SPIRONOLACTONE 25 MG TABLET PO SCH ×2 (09:00→22:54)
--- NOTE | 2019-03-02 13:21 | P.PN ---
Subjective Date of Service: 03/02/19 Chief Complaint: Respiratory failure Patient seen and examined at bedside. Chart reviewed and case discussed with nursing staff. Patient continues to require bi-pap and continues to have respiratory distress. He continues to be hypoxic off of mask Review of Systems 10-point ROS is otherwise unremarkable Physical Examination - Vital Signs Temperature: 98.5 F Blood Pressure: 105/56 Pulse: 76 Respirations: 19 Pulse Ox (%): 98 - Physical Exam General: Alert, Oriented x3, Mild distress, Moderate distress HEENT: Atraumatic, PERRLA, EOMI Neck: Supple, JVD not distended Respiratory: Diminished, Crackles/rales, Expiratory wheezes Cardiovascular: Regular rate/rhythm, Normal S1 S2 Gastrointestinal: Normal bowel sounds, No tenderness Musculoskeletal: No tenderness Integumentary: No rashes Neurological: Normal speech, Normal tone, Normal affect - Studies Microbiology Data (last 24 hrs): 02/25/19 07:50 Blood - Blood Aerobic Blood Culture - Final No growth in 5 days. 02/25/19 07:50 Blood - Blood Anaerobic Blood Culture - Final No growth in 5 days. 02/25/19 07:35 Blood - Blood Aerobic Blood Culture - Final No growth in 5 days. 02/25/19 07:35 Blood - Blood Anaerobic Blood Culture - Final No growth in 5 days. Assessment And Plan - Plan A 68-year-old male with: Acute respiratory failure with hypoxia, currently on BiPAP. Imaging study shows worsening secondary to pneumonia and heart failure. We will continue on BiPAP and wean as tolerated. Bilateral pneumonia, worse on the left. Sputum cultures positive for MRSA, SENSITIVE TO LEVAQUIN. IV antibiotics converted to oral Levaquin and doxycycline. Repeat chest x-ray today with mild improvement in aeration. Acute on chronic systolic heart failure. Discontinue IV Lasix, start spironolactone. Continue congestive heart failure guidelines. Echo ordered, pending. Monitor I's and O's, free fluid restriction, daily weights. Status post pacemaker, AICD. Coronary artery disease, [place] artery, [place] heart, status post coronary artery bypass graft without angina, stable. Subacute gastrointestinal bleed. Patient has been having some gastrointestinal bleed for the past couple of years, worsening in the past few weeks. Currently awaiting GI eval as an outpatient. Aspirin is on hold. Essential hypertension, stable. Mixed hypercholesterolemia. We will continue with statin. Chronic atrial fibrillation, rate controlled, currently in sinus rhythm. We will continue beta-parveen. Aspirin on hold due to gastrointestinal bleed. Severe protein-calorie malnutrition. We will continue with protein supplementation. Deep venous thrombosis prophylaxis with SCDs. No chemical anticoagulation due to gastrointestinal bleed. Plan: Patient will likely benefit from long-term acute care facility referral. Social work consulted,pending [place]
--- NOTE | 2019-03-02 13:53 | ECHO ---
HEIGHT: 5 ft 6 in WEIGHT: 103 lb 9.6 oz DATE OF STUDY: 03/02/[address]: Chaitanya Lua MD 2-DIMENSIONAL: YES M.MODE: YES DOPPLER: YES COLOR FLOW: YES TDS: NO PORTABLE: NO DEFINITY: NO BUBBLE STUDY: NO DIAGNOSIS: RULE OUT CONGESTIVE HEART FAILURE CARDIAC HISTORY: CATHERIZATION: NO SURGERY: YES PROSTHETIC VALVE: NO PACEMAKER: YES MEASUREMENTS (cm) DIASTOLIC (NORMALS) SYSTOLIC (NORMALS) IVSd 1.0 (0.6-1.2) LA Diam 3.3 (1.9-4.0) LVEF 52% LVIDd 5.0 (3.5-5.7) LVIDs 3.7 (2.0-3.5) %FS 27% LVPWd 1.1 (0.6-1.2) Ao Diam 3.1 (2.0-3.7) 2 DIMENSIONAL ASSESSMENT: RIGHT ATRIUM: NORMAL LEFT ATRIUM: NORMAL RIGHT VENTRICLE: PACER LEFT VENTRICLE: NORMAL TRICUSPID VALVE: NORMAL MITRAL VALVE: NORMAL PULMONIC VALVE: NORMAL AORTIC VALVE: NORMAL PERICARDIAL EFFUSION: NONE AORTIC ROOT: NORMAL LEFT VENTRICULAR WALL MOTION: NORMAL. DOPPLER/COLOR FLOW: MILD TRICUSPID REGURGITATION. COMMENTS: MILD TRICUSPID REGURGITATION. NORMAL LEFT VENTRICULAR EJECTION FRACTION AND SIZE. NO EFFUSION. PACER IN RIGHT VENTRICULAR APEX. PARADOXICAL SEPTUM. TECHNOLOGIST: JOSSY TEJEDA RDCS
[2019-03-02] MEDS: BENZONATATE 100 MG CAP PO PRN (16:26)
[2019-03-02] MEDS: ATORVASTATIN 10 MG TAB PO SCH (22:54)
[2019-03-03] MEDS: BENZONATATE 100 MG CAP PO PRN ×2 (00:11→09:41)
[2019-03-03] MEDS: IPRATROPIUM BROM 0.5MG/2.5ML NEB SCH ×4 (02:00→19:45)
[2019-03-03 05:04] VITALS: BMI 17.0
[2019-03-03] MEDS: PANTOPRAZOLE 40MG TABLET PO SCH (06:19)
[2019-03-03 06:27] LABS: Absolute Lymphocytes (CBC) 0.9 K/uL (0.7-4.9); Basophils % 0.1 % (0-1.3); Hematocrit 35.5 % (39.6-49.0); Lymphocytes % 4.1 % (15.3-44.8); MPV 8.3 fL (7.6-11.3); RBC Red Blood Cell Count 4.58 M/uL (4.33-5.43)
[2019-03-03 07:00] LABS: Albumin 1.9 g/dL (3.4-5.0); Protein, Total 5.4 g/dL (6.4-8.2)
[2019-03-03] MEDS: ARFORMOTEROL TARTRATE 15 MCG/2 ML VIAL.NEB NEB SCH ×2 (08:00→19:45)
[2019-03-03] MEDS: ENSURE ENLIVE 237 ML CAN PO SCH ×2 (09:00→21:12)
[2019-03-03] MEDS: levoFLOXacin 750 MG TAB PO SCH (09:03)
[2019-03-03] MEDS: SPIRONOLACTONE 25 MG TABLET PO SCH ×2 (09:03→21:11)
[2019-03-03] MEDS: AMIODARONE HCL 200 MG TAB PO SCH (09:03)
[2019-03-03] MEDS: DOXYCYCLINE 100 MG CAP PO SCH ×2 (09:03→21:12)
[2019-03-03 09:16] LABS: Blood Morphology Comment NOT SEEN (NOT SEEN); Platelet Estimate ADEQ
--- NOTE | 2019-03-03 11:19 | P.PN ---
Subjective Date of Service: 03/03/19 Chief Complaint: Respiratory failure No changes still hypoxic feeling very weak productive cough still requiring high concentrations of oxygen Review of Systems General: Weakness Respiratory: Cough, Shortness of Breath Physical Examination - Vital Signs Temperature: 98.5 F Blood Pressure: 107/52 Pulse: 72 Respirations: 19 Pulse Ox (%): 97 - Physical Exam General: Alert, Oriented x3, Moderate distress Respiratory: Crackles/rales (Crackles bilaterally), Expiratory wheezes Cardiovascular: No edema, Normal S1 S2 Gastrointestinal: Soft and benign - Studies Microbiology Data (last 24 hrs): 02/25/19 07:50 Blood - Blood Aerobic Blood Culture - Final No growth in 5 days. 02/25/19 07:50 Blood - Blood Anaerobic Blood Culture - Final No growth in 5 days. 02/25/19 07:35 Blood - Blood Aerobic Blood Culture - Final No growth in 5 days. 02/25/19 07:35 Blood - Blood Anaerobic Blood Culture - Final No growth in 5 days. Assessment & Plan - Problems (Diagnosis) (1) Pneumonia Current Visit: Yes Status: Acute Plan: Patient has ARDS not responding to antibiotics white count still elevated possible amiodarone toxicity Dc amiodarone and low-dose prednisone and reduce dose of Levaquin to 500 mg daily continue with doxycycline he is in dual therapy for Mr SA labs reviewed repeat blood gases Qualifiers: Pneumonia type: due to methicillin-resistant Staphylococcus aureus (MRSA) Laterality: bilateral (2) Respiratory failure Current Visit: Yes Status: Acute Plan: Patient is in respiratory distress on a non-rebreather at BiP[facility] arterial blood gases CT scan of the chest Qualifiers: Chronicity: acute
[2019-03-03] MEDS: predniSONE 10 MG TAB PO SCH ×2 (12:41→21:12)
[2019-03-03 13:27] LABS: Arterial Blood Carboxyhemoglob 1.4 % (0-1.5); Blood Gas Oxyhemoglobin 79.9 % (94-97); Blood O2 Saturation 81.5 % (92-98.5)
[2019-03-03 16:50] VITALS: TEMP 98.7
[2019-03-03 17:54] VITALS: O2SAT 92
[2019-03-03 21:13] VITALS: BP 115/70
[2019-03-04] MEDS ORDERED: levoFLOXacin 500 MG TAB PO SCH (09:00)
== END 2019-03-03 21:36 | DRG 177 ==
LOC: ER 07:31 → ERHOLD 09:24 → 4TH 10:03
PROVIDERS: ADMIT Family Medicine; ATTEND Family Medicine
DX: J15.212 Pneumonia due to Methicillin resistant Staphylococcus aureus (principal); J96.01 Acute respiratory failure with hypoxia; E43 Unspecified severe protein-calorie malnutrition; I50.23 Acute on chronic systolic (congestive) heart failure; Z68.1 Body mass index [BMI] 19.9 or less, adult; K92.2 Gastrointestinal hemorrhage, unspecified; I11.0 Hypertensive heart disease with heart failure; E78.00 Pure hypercholesterolemia, unspecified; I48.2 Chronic atrial fibrillation; I25.10 Atherosclerotic heart disease of native coronary artery without angina pectoris; D50.9 Iron deficiency anemia, unspecified; R62.7 Adult failure to thrive; I25.2 Old myocardial infarction; Z87.891 Personal history of nicotine dependence; Z95.810 Presence of automatic (implantable) cardiac defibrillator; Z95.1 Presence of aortocoronary bypass graft; Z88.0 Allergy status to penicillin
CPT/HCPCS: 36415; 71045; 71250; 80048; 80053; 80076; 81015; 82805; 83605; 83735; 83880; 84145; 84484; 85025; 85610; 87040; 87070; 87077; 87186; 87205; 93005; 93306; 94640; 94660; 94760; 96365; 96375; 97165; 99285; J0456; J1940; J2920; J2930; J7030; J7512; J7605

== ENCOUNTER 2020-06-07 22:17 | Inpatient (IN) | payer OTHER ==
[2020-06-07 23:20] LABS: Absolute Lymphocytes (CBC) 1.6 K/uL (0.7-4.9); Basophils % 1.3 % (0-1.3); Hematocrit 45.9 % (39.6-49.0); Lymphocytes % 10.7 % (15.3-44.8); MPV 9.5 fL (7.6-11.3); RBC Red Blood Cell Count 5.41 M/uL (4.33-5.43)
[2020-06-07 23:21] LABS: Protime INR 1.21
[2020-06-07 23:43] LABS: ALT/SGPT 71 U/L (12-78); AST/SGOT 122 U/L (15-37); Albumin 2.5 g/dL (3.4-5.0); Alkaline Phosphatase 279 U/L (45-117); BUN Blood Urea Nitrogen 19 mg/dL (7-18); Bicarbonate 24 mmol/L (21-32); Bilirubin Direct 0.4 mg/dL (0-0.2); Bilirubin Total 0.8 mg/dL (0.2-1.0); Glucose Level 100 mg/dL (74-106); Magnesium 2.2 mg/dL (1.8-2.4); NT PRO-BNP 584 pg/mL (<125); Potassium 4.3 mmol/L (3.5-5.1); Protein, Total 6.8 g/dL (6.4-8.2); Sodium Level 142 mmol/L (136-145); Troponin (Emerg Dept Use Only) < 0.02 ng/mL (0.0-0.045)
--- NOTE | 2020-06-08 00:16 | ER ---
Nurse's Notes [facility] Name: Carlos Eduardo Macias Age: 69 yrs Sex: Male : 1950 Arrival Date: 06/07/2020 Time: 22:19 Bed 14 Private MD: Diagnosis: Gastrointestinal hemorrhage, unspecified Presentation: 06/07 22:20 Chief complaint: Patient's son or daughter states: He was here earlier today for blood jb4 work around 1230 due to bloating and swollen feet. His provider called us and told us to come back due to him having an elevated WBC and questionable Liver enzymes. He has been having bloody stools for about a month and a half. 22:20 Coronavirus screen: Client denies travel out of the [place] in the last 14 days. At this jb4 time, the client does not indicate any symptoms associated with coronavirus-19. Ebola Screen: No symptoms or risks identified at this time. Initial Sepsis Screen: Does the patient meet any 2 criteria? No. Patient's initial sepsis screen is negative. Does the patient have a suspected source of infection? No. Patient's initial sepsis screen is negative. Risk Assessment: Do you want to hurt yourself or someone else? Patient reports no desire to harm self or others. Onset of symptoms was June 07, 2020. Transition of care: patient was not received from another setting of care. 22:20 Method Of Arrival: Ambulatory jb4 22:20 Acuity: CHRISTOFER 3 jb4 Historical: - Allergies: 22:20 PENICILLINS; jb4 - Home Meds: 22:20 aspirin 81 mg Oral TbEC 1 tab once daily [Active]; amiodarone 200 mg Oral tab 1 tab jb4 once daily [Active]; pravastatin 80 mg Oral tab 1 tab nightly [Active]; losartan 50 mg Oral tab 1 tab once daily [Active]; Coreg 3.125 mg Oral tab 1 tab every 12 hours [Active]; atorvastatin 10 mg oral tab [Active]; - PMHx: 22:20 Atrial Fib; CAD; High Cholesterol; Hypertension; Myocardial infarction; jb4 - PSHx: 22:20 Cholecystectomy; Appendectomy; CABG; heart ablation; defib; fem pop; extensive heart jb4 surgeries; - Immunization history:: Adult Immunizations up to date. - Social history:: Smoking status: Patient/guardian denies using tobacco, Patient/guardian denies using alcohol, street drugs. Screenin:00 Abuse screen: Denies threats or abuse. Nutritional screening: No deficits noted. jb4 Tuberculosis screening: No symptoms or risk factors identified. Fall Risk None identified. Assessment: 23:00 General: Appears in no apparent distress. comfortable, Behavior is calm, cooperative, jb4 appropriate for age. Pain: Complains of pain in low back area and abdomen Pain does not radiate. Pain currently is 8 out of 10 on a pain scale. Quality of pain is described as aching, Pain began 8 days ago. Neuro: Level of Consciousness is awake, alert, obeys commands, Oriented to person, place, time, situation. Cardiovascular: Heart tones S1 S2 present Patient's skin is warm and dry. Respiratory: Airway is patent Respiratory effort is even, unlabored, Respiratory pattern is regular, symmetrical, Breath sounds are clear bilaterally. GI: Abdomen is round distended, Bowel sounds present X 4 quads. Abd is soft and non tender X 4 quads. Reports lower abdominal pain. : No signs and/or symptoms were reported regarding the genitourinary system. EENT: No signs and/or symptoms were reported regarding the EENT system. Derm: Skin is intact, Skin is pink, warm \T\ dry. Musculoskeletal: Circulation, motion, and sensation intact. Range of motion: intact in all extremities. 06/08 00:00 Reassessment: Patient appears in no apparent distress at this time. Patient and/or jb4 family updated on plan of care and expected duration. Pain level reassessed. Patient is alert, oriented x 3, equal unlabored respirations, skin warm/dry/pink. 01:00 Reassessment: Patient appears in no apparent distress at this time. Patient and/or jb4 family updated on plan of care and expected duration. Pain level reassessed. Patient is alert, oriented x 3, equal unlabored respirations, skin warm/dry/pink. Vital Signs: 06/07 22:20 BP 138 / 68; Pulse 66; Resp 16; Temp 97.8(O); Pulse Ox 95% on R/A; Weight 54.43 kg (R); jb4 Height 5 ft. 3 in. (160.02 cm) (R); Pain 8/10; 23:30 BP 113 / 58; Pulse 64; Resp 16; Pulse Ox 95% on R/A; jb4 06/08 00:30 BP 109 / 77; Pulse 60; Resp 18; Pulse Ox 97% on R/A; jb4 01:30 BP 100 / 67; Pulse 61; Resp 15; Pulse Ox 97% on R/A; jb4 06/07 22:20 Body Mass Index 21.26 (54.43 kg, 160.02 cm) jb4 ED Course: 06/07 22:19 Patient arrived in ED. bp1 22:20 Arm band placed on right wrist. jb4 22:21 Partha Pérez, RN is Primary Nurse. jb4 22:28 Lee Sanders MD is Attending Physician. tw4 22:38 Triage completed. jb4 23:00 Patient has correct armband on for positive identification. Placed in gown. Bed in low jb4 position. Call light in reach. Side rails up X 1. military cook on. Pulse ox on. NIBP on. 23:00 Initial lab(s) drawn, by or, sent to lab. Inserted saline lock: 20 gauge in right jb4 forearm, using aseptic technique. Blood collected. 06/08 00:16 Duy Helms is Hospitalizing Provider. tw4 01:30 No provider procedures requiring assistance completed. Patient admitted, IV remains in jb4 place. Administered Medications: 01:09 Drug: ProTONIX 40 mg Route: IVP; Site: right forearm; jb4 01:26 Follow up: Response: No adverse reaction jb4 01:25 Drug: Octreotide Infusion (50 mcg/hr) - (Octreotide 500 mcg, NS 0.9% 500 ml) Route: IV; [facility] Rate: 50 ml/hr; Site: right forearm; 01:26 Follow up: Response: No adverse reaction; IV Status: Infusion continued upon admission jb4 Outcome: 00:16 Decision to Hospitalize by Provider. tw4 02:00 Admitted to Med/surg via stretcher, with chart, Report called to LIZ Rossi jb4 02:00 Condition: stable 02:00 Discharge instructions given to patient, Instructed on the need for admit, Demonstrated understanding of instructions. 02:22 Patient left the ED. jb4 Signatures: Partha Pérez RN RN jb4 Lee Sanders MD MD tw4 Amada Coronel bp1
--- NOTE | 2020-06-08 00:17 | EDPHYS ---
Physician Documentation [facility] Name: Carlos Eduardo Macias Age: 69 yrs Sex: Male : 1950 Arrival Date: 06/07/2020 Time: 22:19 Bed 14 Private MD: ED Physician Lee Sanders HPI: 06/08 04:49 This 69 yrs old Male presents to ER via Ambulatory with complaints of Bloody tw4 Stools. 04:49 The patient presents to the emergency department with rectal bleeding. Onset: The tw4 symptoms/episode began/occurred 1 month(s) ago, and became worse 2 day(s) ago. Modifying factors: The symptoms are alleviated by nothing, the symptoms are aggravated by nothing. Severity of symptoms: At their worst the symptoms were moderate in the emergency department the symptoms are unchanged. The patient has not experienced similar symptoms in the past. Historical: - Allergies: 06/07 22:20 PENICILLINS; jb4 - Home Meds: 22:20 aspirin 81 mg Oral TbEC 1 tab once daily [Active]; amiodarone 200 mg Oral tab 1 tab jb4 once daily [Active]; pravastatin 80 mg Oral tab 1 tab nightly [Active]; losartan 50 mg Oral tab 1 tab once daily [Active]; Coreg 3.125 mg Oral tab 1 tab every 12 hours [Active]; atorvastatin 10 mg oral tab [Active]; - PMHx: 22:20 Atrial Fib; CAD; High Cholesterol; Hypertension; Myocardial infarction; jb4 - PSHx: 22:20 Cholecystectomy; Appendectomy; CABG; heart ablation; defib; fem pop; extensive heart jb4 surgeries; - Immunization history:: Adult Immunizations up to date. - Social history:: Smoking status: Patient/guardian denies using tobacco, Patient/guardian denies using alcohol, street drugs. ROS: 06/08 04:49 Constitutional: Negative for fever, chills, and weight loss, Eyes: Negative for injury, tw4 pain, redness, and discharge, Cardiovascular: Negative for chest pain, palpitations, and edema, Respiratory: Negative for shortness of breath, cough, wheezing, and pleuritic chest pain, Back: Negative for injury and pain, MS/Extremity: Negative for injury and deformity, Skin: Negative for injury, rash, and discoloration, Neuro: Negative for headache, weakness, numbness, tingling, and seizure. Abdomen/GI: Positive for black/tarry stool, rectal pain, rectal bleeding. Exam: 04:49 Constitutional: This is a well developed, well nourished patient who is awake, alert, tw4 and in no acute distress. Head/Face: Normocephalic, atraumatic. Chest/axilla: Normal chest wall appearance and motion. Nontender with no deformity. No lesions are appreciated. Cardiovascular: Regular rate and rhythm with a normal S1 and S2. No gallops, murmurs, or rubs. Normal PMI, no JVD. No pulse deficits. Respiratory: Lungs have equal breath sounds bilaterally, clear to auscultation and percussion. No rales, rhonchi or wheezes noted. No increased work of breathing, no retractions or nasal flaring. Abdomen/GI: Soft, non-tender, with normal bowel sounds. No distension or tympany. No guarding or rebound. No evidence of tenderness throughout. Back: No spinal tenderness. No costovertebral tenderness. Full range of motion. MS/ Extremity: Pulses equal, no cyanosis. Neurovascular intact. Full, normal range of motion. Neuro: Awake and alert, GCS 15, oriented to person, place, time, and situation. Cranial nerves II-XII grossly intact. Motor strength 5/5 in all extremities. Sensory grossly intact. Cerebellar exam normal. Normal gait. Vital Signs: 06/07 22:20 BP 138 / 68; Pulse 66; Resp 16; Temp 97.8(O); Pulse Ox 95% on R/A; Weight 54.43 kg (R); jb4 Height 5 ft. 3 in. (160.02 cm) (R); Pain 8/10; 23:30 BP 113 / 58; Pulse 64; Resp 16; Pulse Ox 95% on R/A; jb4 06/08 00:30 BP 109 / 77; Pulse 60; Resp 18; Pulse Ox 97% on R/A; jb4 01:30 BP 100 / 67; Pulse 61; Resp 15; Pulse Ox 97% on R/A; jb4 06/07 22:20 Body Mass Index 21.26 (54.43 kg, 160.02 cm) jb4 MDM: 06/07 22:28 Patient medically screened. tw4 06/08 04:52 Differential diagnosis: gastritis, diverticulitis, hemorrhagic shock. Data reviewed: [facility] vital signs, nurses notes. Data reviewed: lab test result(s), CBC, electrolytes. Data interpreted: Pulse oximetry: Interpretation: normal. Counseling: I had a detailed discussion with the patient and/or guardian regarding: the historical points, exam findings, and any diagnostic results supporting the discharge/admit diagnosis. Physician consultation: Duy Helms regarding admission, to the telemetry unit. and will see patient. 06/07 22:28 Order name: Basic Metabolic Panel [facility] 06/07 22:28 Order name: CBC with Diff; Complete Time: 23:43 [facility] 06/07 23:43 Interpretation: Normal except: WBC 14.6; PLT 151; RDW 17.2; VITA% 80.1; LYM% 10.7; NEUT tw4 A 11.7. 06/07 22:28 Order name: LFT's [facility] 06/07 22:28 Order name: Magnesium [facility] 06/07 22:28 Order name: NT PRO-BNP [facility] 06/07 22:28 Order name: PT-INR; Complete Time: 23:43 [facility] 06/07 23:43 Interpretation: Normal except: PT 14.2. [facility] 06/07 22:28 Order name: Troponin (emerg Dept Use Only) [facility] 06/07 22:28 Order name: TS [facility] 06/07 22:28 Order name: TSH [facility] 06/07 22:29 Order name: PT-INR [facility] 06/07 22:29 Order name: Magnesium [facility] 06/07 22:29 Order name: LFT's [facility] 06/07 22:29 Order name: CBC with Diff [facility] 06/07 22:29 Order name: Basic Metabolic Panel [facility] 06/07 22:28 Order name: EKG; Complete Time: 22:29 [facility] 06/07 22:28 Order name: Cardiac monitoring; Complete Time: 22:41 [facility] 06/07 22:28 Order name: EKG - Nurse/Tech; Complete Time: 22:41 [facility] 06/07 22:28 Order name: IV Saline Lock; Complete Time: 23:08 [facility] 06/07 22:28 Order name: Labs collected and sent; Complete Time: 23:08 [facility] 06/07 22:28 Order name: O2 Per Protocol; Complete Time: 22:41 snw 06/07 22:28 Order name: O2 Sat Monitoring; Complete Time: 22:41 snw 06/07 22:29 Order name: Cardiac monitoring; Complete Time: 22:41 tw4 06/07 22:29 Order name: Occult Blood tw4 06/07 23:49 Order name: T4 Free EDIL Administered Medications: 01: Drug: ProTONIX 40 mg Route: IVP; Site: right forearm; jb4 01:26 Follow up: Response: No adverse reaction jb4 :25 Drug: Octreotide Infusion (50 mcg/hr) - (Octreotide 500 mcg, NS 0.9% 500 ml) Route: IV; jb4 Rate: 50 ml/hr; Site: right forearm; : Follow up: Response: No adverse reaction; IV Status: Infusion continued upon admission jb4 Disposition: 06/08/20 00:16 Hospitalization ordered by Duy Helms for Observation. Preliminary diagnosis is Gastrointestinal hemorrhage, unspecified. - Bed requested for Telemetry/MedSurg (observation). - Status is Observation. jb4 - Condition is Stable. - Problem is an ongoing problem. - Symptoms have improved. Signatures: Dispatcher [employer] [facility] Patti Lang RN RN mw Waters, Shelly, EXPERIENTIAL THERAPIST-C EXPERIENTIAL THERAPIST-Partha Tripathi RN RN jb4 Lee Sanders MD MD tw4 Corrections: (The following items were deleted from the chart) 06/07 22:42 22:29 Labs collected and sent ordered. tw4 jb4 22:42 22:29 IV Saline Lock ordered. tw4 jb4 22:49 22:29 Chest Single View+RAD.RAD.BRZ ordered. [facility] 06/08 01:17 00:16 Hospitalization Ordered by Duy Helms for Observation. Preliminary diagnosis mw is Gastrointestinal hemorrhage, unspecified. Bed requested for Telemetry/MedSurg (observation). Status is Observation. Condition is Stable. Problem is an ongoing problem. Symptoms have improved. tw4 02:22 01:17 06/08/2020 00:16 Hospitalization Ordered by Duy Helms for Observation. jb4 Preliminary diagnosis is Gastrointestinal hemorrhage, unspecified. Bed requested for Telemetry/MedSurg (observation). Status is Observation. Condition is Stable. Problem is an ongoing problem. Symptoms have improved. mw
[2020-06-08] MEDS ORDERED: PANTOPRAZOLE 40 MG INJ ONE (01:17)
[2020-06-08] MEDS ORDERED: OCTREOTIDE ACETATE 500 MCG/ML ONE (01:22)
[2020-06-08] MEDS ORDERED: NA CHLORIDE 0.9% 500 ML ONE (01:26)
--- NOTE | 2020-06-08 01:53 | P.HP ---
Certification for Inpatient Patient admitted to: Observation With expected LOS: <2 Midnights Practitioner: I am a practitioner with admitting privileges, knowledge of patient current condition, hospital course, and medical plan of care. Services: Services provided to patient in accordance with Admission requirements found in Title 42 Section 412.3 of the Code of Federal Regulations Patient History Date of Service: 06/08/20 Reason for admission: Rectal bleeding History of Present Illness: 69-year-old gentleman with a history of hypertension and atrial fibrillation presented emergency department with a complaint of rectal bleed. Patient reports about 3 episodes of bloody bowel movements with clots since yesterday morning. Patient reports associated mild abdominal pain. He has a history of GI bleed in the past. Patient leary undergone EGD, colonoscopy and capsule endoscopy with no source of bleeding identified. Patient had a CT abdomen and pelvis done yesterday which demonstrates nodular liver suggesting cirrhosis and moderate ascites. 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 Patient rectal bleeding is likely secondary to portal hypertension. He is admitted for further management. Allergies Penicillins Adverse Reaction (Severe, Verified 02/25/19 11:20) Anaphylaxis Home Medications: Losartan Potassium 50 mg PO DAILY 12/21/15 Amiodarone HCl 200 mg PO DAILY 12/07/17 Aspirin Chewable [Aspirin Chewable*] 1 tab PO DAILY 12/07/17 carvediloL [Carvedilol] 1 tab PO BID 12/07/17 Pantoprazole [Protonix Tab*] 40 mg PO DAILY #30 tab 12/08/17 Pravastatin Sodium [Pravachol] 80 mg PO BEDTIME 05/03/18 Atorvastatin Calcium [Lipitor*] 10 mg PO BEDTIME 02/25/19 - Past Medical/Surgical History Diabetic: No -: htn -: Afib -: CAD -: hypercholesterolemia -: double bypass -: appendectomy -: defibrillator - Family History Father -: Heart disease - Social History Smoking Status: Never smoker Alcohol use: No CD- Drugs: No Caffeine use: Yes Review of Systems Other: Except as documented, all other systems reviewed and negative. Physical Examination - Physical Exam General: Alert, In no apparent distress, Oriented x3 HEENT: PERRLA, Mucous membr. moist/pink, Sclerae nonicteric Neck: Supple, JVD not distended Respiratory: Clear to auscultation bilaterally, Normal air movement Cardiovascular: Regular rate/rhythm, Normal S1 S2, Edema (1+ bilateral lower extremity pitting edema) Gastrointestinal: Normal bowel sounds, Soft and benign, Distended, Ascites Musculoskeletal: No erythema, No tenderness Integumentary: No rashes Neurological: Normal strength at 5/5 x4 extr, Cranial nerves 3-12 intact - Studies Laboratory Data (last 24 hrs) 06/07/20 23:04: PT 14.2 H, INR 1.21 06/07/20 23:04: WBC 14.6 H, Hgb 15.2, Hct 45.9, Plt Count 151 L 06/07/20 23:04: Sodium 142, Potassium 4.3, BUN 19 H, Creatinine 1.48 H, Glucose 100, Magnesium 2.2, Total Bilirubin 0.8, AST 122 H, ALT 71, Alkaline Phosphatase 279 H Microbiology Data (last 24 hrs): 06/08/20 00:20 Stool Occult Blood - Final Assessment and Plan - Problems (Diagnosis) (1) Liver cirrhosis Current Visit: Yes Status: Acute (2) GI bleed Current Visit: Yes Status: Acute (3) Ascites Current Visit: Yes Status: Acute (4) Atrial fibrillation Onset Date: 12/07/17 Current Visit: No Status: Chronic Qualifiers: Atrial fibrillation type: chronic (5) Elevated liver enzymes Current Visit: Yes Status: Acute - Plan Place under observation. Start IV Protonix, octreotide drip, nadolol. Monitor H&H GI consult Obtain liver ultrasound. IV Rocephin prophylaxis. Continue amiodarone from atrial fibrillation. Patient is not anticoagulated. Direct bilirubin and ALP elevated. Will get liver ultrasound. - Advance Directives Does patient have a Living Will: No Does patient have a Durable POA for Healthcare: Yes
[2020-06-08] MEDS: OCTREOTIDE 500 MCG in NA CHLORIDE 0.9% 500 ML IV SCH ×2 (02:15→15:08)
[2020-06-08] MEDS ORDERED: NA CHLORIDE 0.9% 250 ML IV SCH (02:15)
[2020-06-08 02:20] VITALS: BMI 20.5
[2020-06-08] MEDS ORDERED: INFLUENZA VACCINE (for 3y+) 0.5 ML DOSE IMVAC ONE (06:00)
[2020-06-08] MEDS ORDERED: PNEUMOCOCCAL VACCINE 0.5 ML IMVAC ONE (06:00)
[2020-06-08] MEDS: Levofloxacin500mg IV 500 MG/100 ML BAG IV SCH (06:48)
[2020-06-08 07:16] LABS: Hematocrit 42.9 % (39.6-49.0)
[2020-06-08] MEDS ORDERED: nadoloL 40 MG TAB PO SCH (09:00)
[2020-06-08] MEDS: METOCLOPRAMIDE 10 MG/2mL INJ IV SCH ×3 (11:00→18:00)
[2020-06-08] MEDS ORDERED: HEPARIN 5000 UNIT/ML 1 ML VIAL ONE (11:45)
[2020-06-08] MEDS: PANTOPRAZOLE 40 MG INJ IVP SCH ×2 (11:58→21:20)
[2020-06-08] MEDS: MAGNESIUM CITRATE 300 ML BOT PO SCH (13:00)
[2020-06-08] MEDS: GOLYTELY 4000 ML PO SCH (14:00)
[2020-06-08 14:17] LABS: Hematocrit 43.7 % (39.6-49.0)
--- NOTE | 2020-06-08 14:29 | RAD REPORT ---
EXAM DESCRIPTION: NM - GI Blood Loss Imaging - 06/08/2020 2:05 pm CLINICAL HISTORY: Gastrointestinal bleeding COMPARISON: None. TECHNIQUE: The patient was administered 26 millicuries technetium labeled red blood cells. Dynamic i mages of the abdomen and pelvis were obtained for 60 minutes FINDINGS: No abnormal radiotracer activity is seen within the bowel. No abnormality displayed Focal area of radiotracer activity within the lower pelvis to the right of midline likely lies within the bladder. IMPRESSION: No evidence of active gastrointestinal bleeding during the examination
[2020-06-08 17:27] LABS: Absolute Lymphocytes (CBC) 1.5 K/uL (0.7-4.9); Basophils % 0.8 % (0-1.3); Hematocrit 42.5 % (39.6-49.0); Lymphocytes % 11.4 % (15.3-44.8); MPV 9.2 fL (7.6-11.3); RBC Red Blood Cell Count 5.01 M/uL (4.33-5.43)
[2020-06-08 17:47] LABS: Magnesium 1.8 mg/dL (1.8-2.4); Phosphorus 3.5 mg/dL (2.5-4.9)
--- NOTE | 2020-06-08 20:07 | RAD REPORT ---
EXAM DESCRIPTION: US - Liver Only - 06/08/2020 7:54 pm CLINICAL HISTORY: Cirrhosis, elevated bilirubin FINDINGS: The liver has a nodular contour. The liver has an increased echotexture. Hepatopetal flow. A lesion is not visualized. The spleen measures 11 centimeters. IMPRESSION: Nodular hepatic contour with increased echotexture consistent with cirrhosis Unremarkable ultrasound spleen
[2020-06-08 21:30] LABS: Hematocrit 42.5 % (39.6-49.0)
[2020-06-09] MEDS: OCTREOTIDE 500 MCG in NA CHLORIDE 0.9% 500 ML IV SCH ×2 (00:09→12:16)
[2020-06-09] MEDS: Levofloxacin500mg IV 500 MG/100 ML BAG IV SCH (05:10)
[2020-06-09 06:19] LABS: Absolute Lymphocytes (CBC) 1.1 K/uL (0.7-4.9); Basophils % 1.1 % (0-1.3); Hematocrit 41.5 % (39.6-49.0); Lymphocytes % 7.2 % (15.3-44.8); MPV 10.2 fL (7.6-11.3)
[2020-06-09 06:31] LABS: Magnesium 1.8 mg/dL (1.8-2.4); Phosphorus 3.5 mg/dL (2.5-4.9)
[2020-06-09] MEDS: PANTOPRAZOLE 40 MG INJ IVP SCH (08:15)
[2020-06-09 08:36] LABS: Blood Morphology Comment NOT SEEN (NOT SEEN); Platelet Estimate ADEQ
--- NOTE | 2020-06-09 08:59 | P.PN ---
Subjective Date of Service: 06/09/20 Chief Complaint: Rectal bleeding Subjective: Improving (Patient is having brown stools. No blood noted. Family and patient declined colonoscopy. OK per GI to resume diet. During my encounter with him, he complained of chest pain, which he described as twinge. EKG showed normal sinus rhythm with IVCD. Otherwise, non-specific.) Physical Examination - Vital Signs Temperature: 98.7 F Blood Pressure: 125/59 Pulse: 68 Respirations: 17 Pulse Ox (%): 90 - Physical Exam General: Demented, Other (pale, lethargic) HEENT: Atraumatic, Normocephalic, EOMI Neck: Supple Respiratory: Clear to auscultation bilaterally, Normal air movement Cardiovascular: No edema, Normal pulses, Regular rate/rhythm, Normal S1 S2 Gastrointestinal: Normal bowel sounds, No guarding, Distended, Ascites Musculoskeletal: No clubbing, No swelling, No contractures, No erythema, No tenderness, No warmth Neurological: Normal speech, Sensation intact, Normal affect, Dementia Assessment & Plan - Problems (Diagnosis) (1) Lower GI bleeding Current Visit: Yes Status: Acute (2) Dementia Current Visit: Yes Status: Acute (3) Hypoxia Current Visit: Yes Status: Acute (4) Liver cirrhosis Current Visit: Yes Status: Acute (5) Hypertension Onset Date: 12/07/17 Current Visit: No Status: Chronic Qualifiers: Hypertension type: essential hypertension Qualified Code(s): I10 - Essential (primary) hypertension Physician Review Additional Text: Assessment Patient is a 69 year old male with a PMH of dementia currently admitted with GI bleeding. Patient states that he has been having BRBPR and clots. He has had an extensive endoscopic procedures early this year, including pill endoscopy which failed to explain his symptoms. RBC tag was negative during this admission. H/H has been stable since admission and is currently having brown stools. Family declined any endoscopic procedures and feel this has been almost an obsession with the patient. They, however, are more interested working up this new onset ascites. During our encounter today, patient complained of chest pain. RN also notifed me that he desated to 87% on room air. GI bleeding New onset ascites Dementia PLAN: Obtain EKG and serial troponins Follow up CXR and ABG Given negative work up, his GI bleeding was most likely sporadic and mild I will discontinue NPO status and start clear liquid diet. Advance as tolerated Discontinue PPI and octreotide infusion and transition to PO PPI Continue coreg for portal hypertension and paraesophageal varices on CT Continue levofloxacin for SPB prophylaxis NPO after midnight for DX and TX paracentesis with IR Ascites fluid analysis: cell count and differential, cultures, albumin, total protein, LDH, glucose, tryglyceride and cytology Hold any ASA OR chemoprophylaxis Continue amiodarone for atrial fibrillation He is a poor candidate for systemic anticoagulation
[2020-06-09] MEDS: PANTOPRAZOLE 40MG TABLET PO SCH ×2 (09:44→16:18)
--- NOTE | 2020-06-09 10:18 | RAD REPORT ---
EXAM DESCRIPTION: RAD - Chest Single View - 06/09/2020 9:21 am CLINICAL HISTORY: hypoxia Chest pain. COMPARISON: Chest Pa And Lat (2 Views) dated 06/07/2020; Chest Single View dated 02/28/2019; Chest Sin gle View dated 02/26/2019; Chest Single View dated 02/25/2019 FINDINGS: Portable technique limits examination quality. The lungs are grossly clear. Small left pleural effusion. Changes of a prior CABG are noted with pace maker/defibrillator noted.
[2020-06-09] MEDS: DONEPEZIL HCL 5 MG TAB PO SCH (12:03)
[2020-06-09] MEDS: carvediloL 3.125 MG TAB PO SCH ×2 (12:03→21:00)
[2020-06-09] MEDS: AMIODARONE HCL 200 MG TAB PO SCH ×2 (12:04→21:00)
[2020-06-09 12:34] LABS: Arterial Blood Carboxyhemoglob 1.5 % (0-1.5); Blood Gas Oxyhemoglobin 88.4 % (94-97); Blood O2 Saturation 90.8 % (92-98.5)
[2020-06-09 12:49] LABS: Albumin 2.1 g/dL (3.4-5.0); Protein, Total 6.1 g/dL (6.4-8.2)
[2020-06-09] MEDS: MAGNESIUM CITRATE 300 ML BOT PO SCH (13:00)
[2020-06-09] MEDS: GOLYTELY 4000 ML PO SCH (14:00)
[2020-06-09] MEDS: BENZONATATE 100 MG CAP PO PRN (16:53)
--- NOTE | 2020-06-09 18:15 | P.PN ---
Subjective Date of Service: 06/09/20 Chief Complaint: Hematochezia Subjective: Improving (Patient denies hematochezia today. He refuses colonoscopy. Denies prior diagnosis of cirrhosis though he has ascites. Paracentesis planned for tomorrow as per RNs.) Review of Systems 10-point ROS is otherwise unremarkable General: Weakness (improved) Physical Examination - Vital Signs Temperature: 98.8 F Blood Pressure: 99/56 Pulse: 62 Respirations: 18 Pulse Ox (%): 92 - Physical Exam General: Alert, In no apparent distress, Oriented x3, Cooperative HEENT: Atraumatic, Normocephalic, PERRLA, EOMI, Sclerae nonicteric Neck: Supple Respiratory: Normal air movement Cardiovascular: Normal pulses Gastrointestinal: No tenderness, No rebound, No guarding, Ascites Neurological: Normal speech, Normal strength at 5/5 x4 extr Assessment And Plan - Current Problems (Diagnosis) (1) Hematochezia Current Visit: Yes Status: Acute (2) Ascites Current Visit: Yes Status: Acute (3) Elevated liver enzymes Current Visit: Yes Status: Acute (4) Liver cirrhosis Current Visit: Yes Status: Acute - Plan REC: 1) try to obtain colonoscopy report from 2-3 years ago 2) barium enema if patient agrees 3) await paracentesis 4) check viral hepatitis panel, AFP, NH3 Physician Review Additional Text: Assessment Patient is a 69 year old male with a PMH of dementia currently admitted with GI bleeding. Patient states that he has been having BRBPR and clots. He has had an extensive endoscopic procedures early this year, including pill endoscopy which failed to explain his symptoms. RBC tag was negative during this admission. H/H has been stable since admission and is currently having brown stools. Family declined any endoscopic procedures and feel this has been almost an obsession with the patient. They, however, are more interested working up this new onset ascites. During our encounter today, patient complained of chest pain. RN also notifed me that he desated to 87% on room air. GI bleeding New onset ascites Dementia PLAN: Obtain EKG and serial troponins Follow up CXR and ABG Given negative work up, his GI bleeding was most likely sporadic and mild I will discontinue NPO status and start clear liquid diet. Advance as tolerated Discontinue PPI and octreotide infusion and transition to PO PPI Continue coreg for portal hypertension and paraesophageal varices on CT Continue levofloxacin for SPB prophylaxis NPO after midnight for DX and TX paracentesis with IR Ascites fluid analysis: cell count and differential, cultures, albumin, total protein, LDH, glucose, tryglyceride and cytology Hold any ASA OR chemoprophylaxis Continue amiodarone for atrial fibrillation He is a poor candidate for systemic anticoagulation
--- NOTE | 2020-06-09 20:06 | CON ---
Date of Consultation: 06/08/2020 Reason For Consultation: Hematochezia. History Of Present Illness: The patient is a 69-year-old white male with history of hypertension, co ronary artery disease, atrial fibrillation, hyperlipidemia, 2 vessel CABG. The patient presented to the hospital with hematochezia. The patient had 3 episodes of hematochezia with clots since the day before admission. He notes a colonoscopy probably 2 to 3 years ago. He also by chart review also leary d EGD and capsule endoscopy for no source of bleeding identified as per patient and chart review. Of note, in the emergency room, CT scan of abdomen and pelvis was performed revealing cirrhosis of the liver and moderate ascites. The patient states he has no history of liver disease that he knows of. CT also showed some paraesophageal varices and secondary portal hypertension looks like. Past Medical History: Significant for hypertension, hyperlipidemia, atrial fibrillation, coronary ar tiffany disease status post two-vessel CABG, appendectomy, and defibrillator placement. Home Medications: Include losartan, amlodipine, aspirin, carvedilol, Protonix, pravastatin, atorvast atin. Allergies: PENICILLIN. Social History: x2. One son, one daughter. No tobacco. No alcohol. Quit both in 1979. Family History: Father of cerebral aneurysm in 1955. Mother of a myocardial infarction. Review of Systems: The patient has hematochezia and swelling in his abdomen. He denies any fevers, chills, night sweats , abdominal pain, chest pain, shortness of breath, seizure, syncope, lower extremity edema, muscle ac hes, joint aches, backaches. He does have hematochezia, but no melena. No coffee-ground emesis. No hemoptysis, hematuria, dysuria, polydipsia. No abdominal pain, nausea, vomiting. Physical Examination: Vital Signs: The patient is 5 feet 6 inches, 127 pounds, BMI of 20.5 kg/sq m. Temperature of 98.3 d egrees Fahrenheit, pulse 63, respirations 16, blood pressure 108/56, O2 saturation 95%. HEENT: Normocephalic, atraumatic. Anicteric. Pupils equal, round, and reactive to light. Extraocu lar movements are intact. Oropharynx clear. Neck: Supple. No masses. Respirations: Clear to auscultation bilaterally. Cardiac: Regular rate and rhythm. Gastrointestinal: Positive bowel sounds. Soft. Mild distention with tympany. Positive fluid wave dullness in the flanks. Extremities: No clubbing or cyanosis. Some trace lower extremity edema. Neurologic: Alert and oriented x3. Able to move all extremities well. Laboratory Data: The patient has a white count of 12.9, down from 14.6 yesterday; hemoglobin of 14; platelet count of 111; polys of 80%; lymphocytes 11%; monocytes 7%; eosinophils 0.5%; basophils 0.8%. PT of 14.2, INR of 1.2. Sodium of 145, potassium 5.0, chloride 113, bicarb 26, BUN 16, creatinine of 1.3, glucose 103, calcium 7.7, phosphorus 3.5, magnesium 1.8, total bilirubin 0.3, bilirubin 0.4, AST of 122, ALT of 71, alkaline phosphatase 279. Troponin of less than 0.02. B-type natriuretic pep tide of 584, moderately elevated. Total protein 6.8, albumin 3.5. TSH of 6.0, free T4 is little bit high at 1.87. GI bleeding scan, which was ordered was negative, done this morning. Liver ultrasound revealed nodul ar hepatic contour, increase in the echotexture consistent with cirrhosis, unremarkable spleen. On t he 6th, CT abdomen and pelvis revealed moderate ascites, cirrhosis of the liver with prominence of th e caudate lobe, likely indicating cirrhosis, paraesophageal varices, mediastinal and hilar adenopathy noted. Chest x-ray revealed mild COPD, otherwise negative. Impression: 1.Hematochezia. Hemoglobin 15.2, down to 14.1. The patient states he has had colonoscopy, EGD, and PillCam performed 2 to 3 years ago with no bleeding source identified at that time. Repeat endoscop y and colonoscopy again. 2.Cirrhosis of the liver by CT of abdomen and pelvis and by ultrasound. 3.Moderate ascites noted on CT of the abdomen and pelvis. Paracentesis being set up by Internal Med icine service. 4.TSH elevated at 6.0, normal being 0.4 to 3.7, but his free T4 is a little bit elevated at 1.87, th erefore it seems to be okay. There is no history of him taking thyroid medication, but his free T4 l evel is adequate. 5.CT reveals mediastinal hilar adenopathy. Chest x-ray was negative. We will consider CT chest. Recommendations: 1.Serial H and H. Transfuse p.r.n. 2.Colonoscopy when family agrees as the patient has history of dementia it appears, somewhat mild th ough. 3.Agree with holding the aspirin and other blood thinners at this time. 4.Start liver workup with viral hepatitis panel, alpha fetoprotein level, and ammonia level as well. 5.Consider CT of chest with CT of abdomen and pelvis revealing mediastinal hilar adenopathy with svetlana st x-ray revealing mild COPD. MELODY/WENDY Voice ID: [id number] Report ID: [id number]
[2020-06-10] MEDS: Levofloxacin500mg IV 500 MG/100 ML BAG IV SCH (05:14)
--- NOTE | 2020-06-10 07:25 | EKG ---
Test Date: 2020-06-09 Test Time: 07:55:57 Community Service Technician: VERONICA MEASUREMENT RESULTS: Intervals: Rate: 70 MO: 166 QRSD: 124 QT: 482 QTc: 520 [place]: P: -1 MO: 166 QRS: 87 T: 81 INTERPRETIVE STATEMENTS: Normal sinus rhythm Nonspecific intraventricular conduction delay Borderline ECG Compared to ECG 06/07/2020 22:39:43 Intraventricular conduction delay now present Electronically Signed On 06-10-20 07:23:35 ENGINEERING VICE PRESIDENT by Thomas Sneed
[2020-06-10] MEDS: carvediloL 3.125 MG TAB PO SCH ×2 (10:28→22:27)
[2020-06-10] MEDS: PANTOPRAZOLE 40MG TABLET PO SCH ×2 (10:28→16:21)
[2020-06-10] MEDS: AMIODARONE HCL 200 MG TAB PO SCH ×2 (10:28→22:27)
[2020-06-10] MEDS: DONEPEZIL HCL 5 MG TAB PO SCH (10:29)
[2020-06-10 10:46] LABS: Body Fluid WBC 86 /mm^3
[2020-06-10 10:51] LABS: Appearance CLEAR (CLEAR); Body Fluid Source PERITONEAL; Color of fluid Yellow (COLORLESS)
[2020-06-10] MEDS: MAGNESIUM CITRATE 300 ML BOT PO SCH (11:36)
[2020-06-10] MEDS: GOLYTELY 4000 ML PO SCH (11:36)
--- NOTE | 2020-06-10 12:32 | P.PN ---
Subjective Date of Service: 06/10/20 Chief Complaint: Hematochezia Status post paracentesis today. Patient seen he feels better. No bloody bowel movements since hospitalization. He denies any abdominal pain. Physical Examination - Vital Signs Temperature: 98.5 F Blood Pressure: 103/48 Pulse: 83 Respirations: 19 Pulse Ox (%): 93 - Physical Exam General: Alert, In no apparent distress HEENT: Mucous membr. moist/pink, Sclerae nonicteric Neck: Supple, JVD not distended Respiratory: Clear to auscultation bilaterally, Normal air movement Cardiovascular: Regular rate/rhythm, Normal S1 S2, Edema (1+ bilateral lower e xtremity edema) Gastrointestinal: Normal bowel sounds, Soft and benign, Non-distended, No tenderness Musculoskeletal: No erythema Integumentary: No rashes Neurological: Normal strength at 5/5 x4 extr Assessment And Plan - Current Problems (Diagnosis) (1) Liver cirrhosis Current Visit: Yes Status: Acute (2) GI bleed Current Visit: Yes Status: Acute (3) Ascites Current Visit: Yes Status: Acute (4) Atrial fibrillation Onset Date: 12/07/17 Current Visit: No Status: Chronic Qualifiers: Atrial fibrillation type: chronic (5) Elevated liver enzymes Current Visit: Yes Status: Acute - Plan Continue oral protonix. He is on Coreg for atrial fibrillation and portal hypertension Continue to monitor H&H Dr. Knight input appreciated. Patient was initially declining EGD and colonoscopy. Upon further discussion with him and her daughter, he has agreed to proceed. Obtain CT chest given higher and mediastinal adenopathy. Status post paracentesis-increased RBC. WBC count does not meet criteria for peritonitis. Continue amiodarone from atrial fibrillation. Patient is a poor candidate for anticoagulation. He reports history of hemorrhoid which could explain the rectal bleed. Prior CT abdomen and pelvis also report paraesophageal varices. Dr. Knight to follow for EGD and colonoscopy.
--- NOTE | 2020-06-10 13:38 | RAD REPORT ---
EXAM DESCRIPTION: US - Paracentesis Proc Guidance - 06/10/2020 9:35 am CLINICAL HISTORY: Liver disease with ascites FINDINGS: The risks, benefits and alternatives to the procedure were explained to the patient and in formed consent obtained. The skin and subcutaneous tissues were anesthetized with Lidocaine. Under sonographic guidance an 8 F rench catheter was placed into the right lower quadrant. 2 liters cc of yellow fluid was removed and sent to the lab. The patient experienced no immediate complication. IMPRESSION: Paracentesis
--- NOTE | 2020-06-10 15:12 | RAD REPORT ---
EXAM DESCRIPTION: CT - Thorax W/ Con - 06/10/2020 1:56 pm CLINICAL HISTORY: hilar and mediastinal lymphadenopathy. COMPARISON: Thorax Wo Con dated 02/26/2019; Chest Single View dated 06/09/2020; Abdomen Pelvis W Con trast dated 06/07/2020 TECHNIQUE: Dynamically enhanced 5 mm thick images of the chest were obtained during administration o f 100 mL non-ionic IV contrast. All CT scans are performed using dose optimization technique as appropriate and may include automated exposure control or mA/KV adjustment according to patient size. FINDINGS: Interstitial thickening and scattered alveolar opacities are present in each upper lobe ne w from the prior CT study. This is a pattern similar to that which was seen in the lower lung salazar of the January 2019 study. Superior segment of each lower lobe shows a similar pattern. In the superior most aspect of the left lower lobe there is a 15 millimeter irregularly marginated mass. There is ten ting of the adjacent pleura. The patient had pneumonia like consolidation in this region on the prior study. Small bilateral pleural effusions are present not substantially different from comparison. No pneumo thorax. No chest wall mass or abnormal axillary lymphadenopathy. Mediastinal and hilar lymphadenopathy have not clearly changed from January 2019. No progression seen. N o pericardial effusion. Coronary artery calcifications are present. Ascites of the upper abdomen is seen adjacent to the liver and spleen. Ascites was present on a 2019 CT abdomen study. The abdomen is not sufficiently visualized to allow for further assessment . IMPRESSION: Mediastinal and hilar lymphadenopathy pattern has not clearly changed from January 2019. Prominent interstitial and alveolar opacities in each upper lobe in the superior segment of each lowe r lobe favoring an infectious/inflammatory process. A 15 millimeter spiculated density in the superior most aspect left lower lobe is identified. Pneumon ia like consolidation was seen in this region on the January 2019 study. This could be remnant scarring from the prior infectious process or a suspicious pulmonary nodule. This superior segment left lower lobe nodule finding warrants ongoing monitoring. Re-evaluation in 3- [address] imaging suggested to monitor for stability. PET CT imaging may not be helpful as the re appears to be active infectious/inflammatory findings in this region and in the upper lung salazar overall. Active infection and malignancy can have a similar appearance on PET-CT imaging
[2020-06-10] MEDS ORDERED: ALBUTEROL 2.5 MG/3 ML NEB SOL NEB ONE (17:00)
[2020-06-10] MEDS ORDERED: IPRATROPIUM BROM 0.5MG/2.5ML NEB ONE (17:00)
[2020-06-11 04:04] LABS: Absolute Lymphocytes (CBC) 1.4 K/uL (0.7-4.9); Basophils % 0.8 % (0-1.3); Hematocrit 40.5 % (39.6-49.0); Lymphocytes % 8.1 % (15.3-44.8); MPV 9.9 fL (7.6-11.3); RBC Red Blood Cell Count 4.74 M/uL (4.33-5.43)
[2020-06-11 04:29] LABS: Albumin 1.7 g/dL (3.4-5.0); Bilirubin Total 1.3 mg/dL (0.2-1.0); Potassium 4.3 mmol/L (3.5-5.1); Protein, Total 5.1 g/dL (6.4-8.2)
[2020-06-11] MEDS ORDERED: NA CHLORIDE 0.9% 250 ML ONE (04:39)
[2020-06-11] MEDS: Levofloxacin500mg IV 500 MG/100 ML BAG IV SCH (05:06)
[2020-06-11] MEDS: PANTOPRAZOLE 40MG TABLET PO SCH ×2 (09:31→17:24)
[2020-06-11] MEDS: DONEPEZIL HCL 5 MG TAB PO SCH (09:31)
[2020-06-11] MEDS: AMIODARONE HCL 200 MG TAB PO SCH (09:31)
[2020-06-11] MEDS: carvediloL 3.125 MG TAB PO SCH ×2 (09:31→20:39)
[2020-06-11] MEDS ORDERED: GOLYTELY 4000 ML PO ONE (11:15)
[2020-06-11] MEDS ORDERED: MAGNESIUM CITRATE 300 ML BOT PO SCH (11:15)
--- NOTE | 2020-06-11 12:16 | P.PN ---
Subjective Date of Service: 06/11/20 Chief Complaint: Hematochezia Subjective: No new changes (feeling about the same, feeling abdomen "filling back up", denies fever/chills) Review of Systems 10-point ROS is otherwise unremarkable Physical Examination - Vital Signs Temperature: 98.1 F Blood Pressure: 104/51 Pulse: 67 Respirations: 18 Pulse Ox (%): 97 - Physical Exam General: Alert, Oriented x2 Respiratory: Diminished (at bases), Crackles/rales (bilaterally) Cardiovascular: Regular rate/rhythm Gastrointestinal: No tenderness, Distended (mild, +fluid wave) Integumentary: No rashes, No tenderness/swelling Neurological: Normal speech, Normal affect Assessment & Plan Physician Review Additional Text: Patient is a 69 year old male with a PMH of dementia currently admitted with GI bleeding. Patient states that he has been having BRBPR and clots. He has had an extensive endoscopic procedures early this year, including pill endoscopy which failed to explain his symptoms. RBC tag was negative during this admission. H/H has been stable since admission and is currently having br own stools. Family declined any endoscopic procedures and feel this has been almost an obsession with the patient. They, however, are more interested working up this new onset ascites. Patient now amenable to EGD / C-scope GI bleeding New onset ascites new onset Cirrhosis Hypoxemia Dementia reporting no longer having BRBPR or clots Hgb stable was NPO today for possible scope, likely to be done tomorrow c/w coreg for portal HTN and paresophageal varices on CT was on levaquin for SPB prophylaxis, continuing to have rising WBC, switch to Doxy - discussed with Pulm - for atypical coverage, also with h/o MRSA Pneumonia ~1 yr ago, will give MRSA coverage unfortunately has severe anaphylactic reaction to penicillins, family unaware if he's ever tolerated cephalosporins in past s/p paracentesis - some fluid studies still pending pulm consulted given hypoxia and CT chest findings - concerned more for amio toxicity, less likely bacterial infection amio discontinued He is a poor candidate for systemic anticoagulation due to prior GI bleeds Dispo: anticipate dc home in 24-48hrs pending further workup Time Spent Managing Pts Care (In Minutes): 35
[2020-06-11] MEDS ORDERED: ONDANSETRON 4 MG/2 ML VIAL IV PRN (13:14)
[2020-06-11] MEDS ORDERED: ALBUMIN HUMAN 25% 200 ML IV ONE (16:00)
[2020-06-11] MEDS: METHYLPREDNISOLONE 40 MG INJ IV SCH (17:24)
[2020-06-11] MEDS: DOXYCYCLINE 100 MG in NA CHLORIDE 0.9% 100 ML IVPB SCH (20:38)
[2020-06-12] MEDS: METHYLPREDNISOLONE 40 MG INJ IV SCH ×4 (00:20→17:25)
[2020-06-12 04:08] LABS: Protime INR 1.52
[2020-06-12 04:11] LABS: Absolute Lymphocytes (CBC) 0.7 K/uL (0.7-4.9); Basophils % 0.5 % (0-1.3); Hematocrit 37.8 % (39.6-49.0); Lymphocytes % 5.9 % (15.3-44.8); MPV 9.9 fL (7.6-11.3)
[2020-06-12 04:27] LABS: Albumin 1.7 g/dL (3.4-5.0); Bilirubin Total 1.1 mg/dL (0.2-1.0); Magnesium 2.4 mg/dL (1.8-2.4); Potassium 4.2 mmol/L (3.5-5.1)
[2020-06-12 05:16] LABS: Blood Morphology Comment NOT SEEN (NOT SEEN); Platelet Estimate DECR; White Blood Cell Scan OK (OK)
[2020-06-12] MEDS: carvediloL 3.125 MG TAB PO SCH ×2 (09:00→21:00)
[2020-06-12] MEDS: DONEPEZIL HCL 5 MG TAB PO SCH (09:39)
[2020-06-12] MEDS: PANTOPRAZOLE 40MG TABLET PO SCH ×2 (09:39→17:25)
[2020-06-12] MEDS: DOXYCYCLINE 100 MG in NA CHLORIDE 0.9% 100 ML IVPB SCH ×2 (10:00→20:42)
[2020-06-12] MEDS: NA CHLORIDE 0.9% 1,000 ML ONE ×2 (12:00→12:15)
[2020-06-12] MEDS ORDERED: propofoL 200 MG/20 ML VIAL IV ONE (12:14)
[2020-06-12] MEDS ORDERED: Phenylephrine HCl 10 MG/ML 1 ML VIAL ONE (12:14)
[2020-06-12] MEDS ORDERED: NS 0.9% VIAL 0 ML ONE (12:15)
[2020-06-12] MEDS ORDERED: ETOMIDATE 20 MG/10 ML VIAL IV ONE (12:15)
[2020-06-12] MEDS ORDERED: LIDOCAINE 1% MPF 5 ML VIAL ONE (12:15)
--- NOTE | 2020-06-12 12:40 | P.CNS ---
Date of Consult: 06/11/20 Reason for Consult: Interstitial lung disease and hypoxemia Chief Complaint: Interstitial lung disease Allergies Penicillins Adverse Reaction (Severe, Verified 06/08/20 02:18) Anaphylaxis Home Medications: Amiodarone HCl [Cordarone Tab] 200 mg PO BID 06/08/20 Donepezil [Aricept] 10 mg PO DAILY 06/08/20 Multivitamin [Daily Multivitamin] 1 tab PO DAILY 06/08/20 Pantoprazole [Protonix Tab] 40 mg PO DAILY 06/08/20 Pravastatin Sodium 80 mg PO BEDTIME 06/08/20 carvediloL [Coreg] 3.125 mg PO BID 06/08/20 - Past Medical/Surgical History Diabetic: No -: htn -: Afib -: CAD -: hypercholesterolemia -: double bypass -: appendectomy -: defibrillator - Family History Father Medical History: Heart disease Notes: aortic anuerysm Mother Medical History: Other (see notes) Notes: heart attack - Social History Smoking Status: Former smoker Alcohol use: No CD- Drugs: No Caffeine use: Yes Place of Residence: Home Physical Examination Temp Pulse Resp BP Pulse Ox 97.2 F 55 16 98/42 L 94 06/12/20 08:00 06/12/20 12:08 06/12/20 12:08 06/12/20 12:08 06/12/20 08:00 - Problems (1) Interstitial lung disease Current Visit: Yes Status: Acute Plan: Patient is 69 years of age he new diagnosis of cirrhosis of the liver admitted with hematochezia he was found to have some esophageal varices 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
--- NOTE | 2020-06-12 12:45 | ENDO RPT ---
[address], [address] EGD PROCEDURE REPORT EXAM DATE: 06/12/2020 PATIENT NAME: Carlos Eduardo Macias MR#: [id number] BIRTHDATE: 1950 ATTENDING: Ben Knight Dr STATUS: inpatient - 7 STATION INSTALLER AND REPAIRER: Opal Parnell RN and Khloe Kenyon RN INDICATIONS: The patient is a 69 yr old Male here for an EGD due to screening for esophageal varices with new cirrhosis diagnosis, GI bleeding PROCEDURE PERFORMED: EGD with biopsy MEDICATIONS: Per Anesthesia. TOPICAL ANESTHETIC: none CONSENT: The patient understands the risks and benefits of the procedure and understands that these risks include, but are not limited to: sedation, allergic reaction, infection, perforation and/or bleeding. Alternative means of evaluation and treatment include, among others: physical exam, x-rays, and/or surgical intervention. The patient elects to proceed with this endoscopic procedure. DESCRIPTION OF PROCEDURE: During intra-op preparation period all mechanical medical equipment was checked for proper function. Hand hygiene and appropriate measures for infection prevention was taken. Procedure, possible complications, and alternatives including but not limited to the possibility of bleeding, perforation, tear, infection, sepsis, need for surgery, need for blood transfusion, and anesthesia related complications were explained to the patient. After the risks, benefits and alternatives of the procedure were thoroughly explained, Informed consent was verified, confirmed and timeout was successfully executed by the treatment team. The patient was placed in the left lateral position. The patient was anesthetized with topical anesthesia. Through the anesthetized oropharyngeal area, the scope was passed without any difficulty. The EG-[id number] ([id number]) endoscope was introduced through the mouth and advanced to the second portion of the duodenum. Retroflexed views revealed a small hiatal hernia. The gastroscope was then slowly withdrawn and removed. A small hiatal hernia was found Mild Atrophic gastritis was found in the body of the stomach. Multiple biopsies were obtained and sent to pathology. Moderate gastritis was found in the antrum. Multiple biopsies were obtained and sent to pathology. No active bleeding nor old blood noted in stomach. ADVERSE EVENTS: There were no complications. IMPRESSIONS: 1. Small hiatal hernia 2. Mild atrophic gastritis in the body of the stomach, s/p biopsies 3. Moderate gastritis in the antrum, s/p biopsies 4. No active bleeding nor old blood noted in stomach RECOMMENDATIONS: 1. await biopsy results 2. acid suppression therapy REPEAT EXAM: Ben Knight Dr eSigned: Ben Knight Dr 06/12/2020 12:45 PM cc: CPT CODES: ICD9 CODES: PATIENT NAME: maribellenedina Carlos Eduardo Jody MR#: [id number]
--- NOTE | 2020-06-12 16:04 | P.PN ---
Subjective Date of Service: 06/12/20 Chief Complaint: Hematochezia Subjective: No new changes (feeling ok this morning, still requiring HFNC, reports shallow inspirations feeling abdomen is "filling up" still, but remains soft) Review of Systems 10-point ROS is otherwise unremarkable Physical Examination - Vital Signs Temperature: 97.9 F Blood Pressure: 94/47 Pulse: 57 Respirations: 16 Pulse Ox (%): 92 - Physical Exam General: Alert, In no apparent distress, Oriented x3 HEENT: Sclerae nonicteric Respiratory: Diminished (at bases), Crackles/rales (mild, at bases bilaterally) Cardiovascular: No edema, Regular rate/rhythm Gastrointestinal: Soft and benign, Ascites Integumentary: No rashes Neurological: Normal speech, Normal affect Assessment & Plan Physician Review Additional Text: Patient is a 69 year old male with a PMH of dementia currently admitted with GI bleeding. Patient states that he has been having BRBPR and clots. He has had an extensive endoscopic procedures early this year, including pill endoscopy which failed to explain his symptoms. RBC tag was negative during this admission. H/H has been stable since admission and is currently having brown stools. Family declined any endoscopic procedures and feel this has been almost an obsession with the patient. They, however, are more interested working up this new onset ascites. Patient now amenable to EGD / C-scope GI bleeding, lower New onset ascites new onset Cirrhosis Hypoxemia Dementia reporting no longer having BRBPR or clots, scheduled for EGD/c-scope today Hgb stable c/w coreg for portal HTN and paresophageal varices on CT switched from levaquin to doxy on 06/11 due to rising WBC, discussed with Pulm - for atypical coverage, also with h/o MRSA Pneumonia ~1 yr ago, will give MRSA coverage leukocytosis improved, but procalcitonin increased unfortunately has severe anaphylactic reaction to penicillins, family unaware if he's ever tolerated cephalosporins in past s/p paracentesis - some fluid studies still pending pulm consulted given hypoxia and CT chest findings - concerned more for amio toxicity, less likely bacterial infection amio discontinued, and started on solumedrol on 06/11 He is a poor candidate for systemic anticoagulation due to prior GI bleeds Dispo: anticipate dc home in 24-48hrs pending further workup Time Spent Managing Pts Care (In Minutes): 35
[2020-06-12] MEDS: BENZONATATE 100 MG CAP PO PRN (20:43)
[2020-06-13] MEDS: METHYLPREDNISOLONE 40 MG INJ IV SCH ×2 (01:36→09:00)
[2020-06-13 04:50] LABS: Albumin 1.8 g/dL (3.4-5.0); Magnesium 2.5 mg/dL (1.8-2.4); Potassium 3.8 mmol/L (3.5-5.1); Protein, Total 5.2 g/dL (6.4-8.2)
[2020-06-13 05:06] LABS: Basophils % 0.3 % (0-1.3); Hematocrit 40.5 % (39.6-49.0); Lymphocytes % 5.5 % (15.3-44.8); MPV 9.8 fL (7.6-11.3)
--- NOTE | 2020-06-13 08:38 | RAD REPORT ---
EXAM DESCRIPTION: RAD - Chest Single View - 06/13/2020 6:32 am CLINICAL HISTORY: SOB Chest pain. COMPARISON: Chest Single View dated 06/09/2020; Chest Pa And Lat (2 Views) dated 06/07/2020; Chest Sin gle View dated 02/28/2019; Chest Single View dated 02/26/2019; Thorax W/ Con dated 06/10/2020 FINDINGS: Portable technique limits examination quality. Mild bilateral interstitial lung opacities appears slightly progressive since the comparative study. Small bilateral pleural effusions are present. The heart is normal in size. Sternotomy wires present with changes of a prior CABG.Single lead pacer/defibrillator device is present. IMPRESSION: Mild worsening in lung aeration seen since comparative study.
[2020-06-13] MEDS: DONEPEZIL HCL 5 MG TAB PO SCH (08:57)
[2020-06-13] MEDS: PANTOPRAZOLE 40MG TABLET PO SCH ×2 (08:57→17:40)
[2020-06-13] MEDS: carvediloL 3.125 MG TAB PO SCH (08:58)
[2020-06-13] MEDS: DOXYCYCLINE 100 MG in NA CHLORIDE 0.9% 100 ML IVPB SCH (09:00)
[2020-06-13] MEDS: predniSONE 20 MG TAB PO SCH ×2 (13:03→20:47)
--- NOTE | 2020-06-13 13:17 | P.PN ---
Subjective Date of Service: 06/13/20 Chief Complaint: Interstitial lung disease Subjective: Improving (on 5L NC this morning, feeling better, but still continues with SOB otherwise reports feeling ok, no acute events overnight) Review of Systems 10-point ROS is otherwise unremarkable Physical Examination - Vital Signs Temperature: 97.0 F Blood Pressure: 100/56 Pulse: 57 Respirations: 18 Pulse Ox (%): 90 - Physical Exam General: Alert, In no apparent distress, Oriented x3, Cachectic HEENT: Mucous membr. moist/pink, Sclerae nonicteric Neck: Supple Respiratory: Diminished (at bases), Crackles/rales (at bases), Other (on 5 L NC) Cardiovascular: No edema, Regular rate/rhythm Gastrointestinal: Soft and benign, Non-distended, Ascites (mild fluid) Musculoskeletal: No tenderness Integumentary: No rashes Neurological: Normal speech, Normal affect Assessment & Plan Physician Review Additional Text: Patient is a 69 year old male with a PMH of dementia currently admitted with GI bleeding. Patient states that he has been having BRBPR and clots. He has had an extensive endoscopic procedures early this year, including pill endoscopy which failed to explain his symptoms. RBC tag was negative during this admission. H/H has been stable. lower GI bleed, resolved New onset ascites new onset Cirrhosis, alcoholic Hypoxemia possible pneumonia vs amiodarone toxicity CAD s/p CABG chronic CHF, HFpEF Dementia no BRBPR or clots since admission, s/p EGD yesterday - with some gastritis, no evidence of bleed; Hgb stable, continue PPI coreg was ordered for portal HTN and paresophageal varices on CT, however patient has had bradycardia and borderline hypotension switched from levaquin to doxy on 06/11 due to rising WBC, discussed with Pulm - for atypical coverage, also with h/o MRSA Pneumonia ~1 yr ago, will give MRSA coverage leukocytosis back up, likely due to steroids, procalcitonin improving unfortunately has severe anaphylactic reaction to penicillins, family unaware if he's ever tolerated cephalosporins in past pulm consulted given hypoxia and CT chest findings - concerned more for amio toxicity, less likely bacterial infection amio discontinued, and started on solumedrol on 06/11 He is a poor candidate for systemic anticoagulation due to prior GI bleeds patient is a difficult stick and lost IV access, will temporarily switch to PO medications Dispo: anticipate dc home with home health / PT, and home oxygen tomorrow if able to continue weaning oxygen. Time Spent Managing Pts Care (In Minutes): 35
[2020-06-13] MEDS: DOXYCYCLINE 100 MG CAP PO SCH (20:47)
[2020-06-14 05:51] LABS: Absolute Lymphocytes (CBC) 0.8 K/uL (0.7-4.9); Basophils % 0.4 % (0-1.3); Hematocrit 43.4 % (39.6-49.0); Lymphocytes % 4.9 % (15.3-44.8); MPV 8.4 fL (7.6-11.3); RBC Red Blood Cell Count 5.05 M/uL (4.33-5.43)
[2020-06-14 06:09] LABS: Albumin 1.9 g/dL (3.4-5.0); Magnesium 2.5 mg/dL (1.8-2.4); Potassium 3.8 mmol/L (3.5-5.1); Protein, Total 5.3 g/dL (6.4-8.2)
[2020-06-14] MEDS: DOXYCYCLINE 100 MG CAP PO SCH ×2 (08:12→20:36)
[2020-06-14] MEDS: DONEPEZIL HCL 5 MG TAB PO SCH (08:12)
[2020-06-14] MEDS: PANTOPRAZOLE 40MG TABLET PO SCH ×2 (08:12→16:34)
[2020-06-14] MEDS: predniSONE 20 MG TAB PO SCH ×3 (08:12→20:36)
--- NOTE | 2020-06-14 17:15 | P.PN ---
Subjective Date of Service: 06/14/20 Chief Complaint: Interstitial lung disease Subjective: No new changes (continues to overall feel well, still requirin 5LNC, desats with ambulation. no nausea/vomiting, no bright red bloow) Review of Systems 10-point ROS is otherwise unremarkable Physical Examination - Vital Signs Temperature: 97.3 F Blood Pressure: 120/69 Pulse: 58 Respirations: 18 Pulse Ox (%): 95 - Physical Exam General: Alert, In no apparent distress, Oriented x3, Cachectic HEENT: Mucous membr. moist/pink Respiratory: Clear to auscultation bilaterally, Normal air movement Cardiovascular: No edema, Regular rate/rhythm Gastrointestinal: Soft and benign, Distended (mild, soft) Musculoskeletal: No tenderness Integumentary: No rashes Neurological: Normal speech, Normal affect Assessment & Plan Physician Review Additional Text: Patient is a 69 year old male with a PMH of dementia currently admitted with GI bleeding. Patient states that he has been having BRBPR and clots. He has had an extensive endoscopic procedures early this year, including pill endoscopy which failed to explain his symptoms. RBC tag was negative during this admission. H/H has been stable. lower GI bleed, resolved New onset ascites new onset Cirrhosis, alcoholic Hypoxemia possible pneumonia vs amiodarone toxicity CAD s/p CABG chronic CHF, HFpEF Dementia no BRBPR or clots since admission, s/p EGD yesterday - with some gastritis, no evidence of bleed; Hgb stable, continue PPI coreg was ordered for portal HTN and paresophageal varices on CT, however patient has had bradycardia and borderline hypotension switched from levaquin to doxy on 06/11 due to rising WBC, discussed with Pulm - for atypical coverage, also with h/o MRSA Pneumonia ~1 yr ago, will give MRSA coverage leukocytosis and procal impriving pulm consulted given hypoxia and CT chest findings - concerned more for amio toxicity, less likely bacterial infection amio discontinued, and started on solumedrol on 06/11 - switched to prednisone due to loss of IV and hard stick He is a poor candidate for systemic anticoagulation due to prior GI bleeds advanced to regular diet, added ensure for nutrition Dispo: anticipate dc home with home health / PT, and home oxygen tomorrow if able to continue weaning oxygen. Time Spent Managing Pts Care (In Minutes): 35
[2020-06-14] MEDS: ENSURE HIGH PROTEIN 237 ML CAN PO SCH (20:37)
[2020-06-15 07:15] LABS: Albumin 1.8 g/dL (3.4-5.0); Bilirubin Total 0.8 mg/dL (0.2-1.0); Magnesium 2.5 mg/dL (1.8-2.4); Potassium 4.1 mmol/L (3.5-5.1); Protein, Total 4.9 g/dL (6.4-8.2)
[2020-06-15 07:20] LABS: Absolute Lymphocytes (CBC) 0.7 K/uL (0.7-4.9); Basophils % 0.1 % (0-1.3); Hematocrit 41.7 % (39.6-49.0); MPV 9.2 fL (7.6-11.3); RBC Red Blood Cell Count 4.84 M/uL (4.33-5.43)
[2020-06-15] MEDS: ENSURE HIGH PROTEIN 237 ML CAN PO SCH (09:00)
[2020-06-15] MEDS: DONEPEZIL HCL 5 MG TAB PO SCH (09:53)
[2020-06-15] MEDS: DOXYCYCLINE 100 MG CAP PO SCH (09:53)
[2020-06-15] MEDS: predniSONE 20 MG TAB PO SCH ×2 (09:54→13:50)
[2020-06-15] MEDS: PANTOPRAZOLE 40MG TABLET PO SCH (09:54)
--- NOTE | 2020-06-15 10:26 | P.PN ---
Subjective Date of Service: 06/14/20 Chief Complaint: Interstitial lung disease Subjective: Improving (Patient is improving oxygenation has improved still a little weak) Review of Systems General: Weakness Respiratory: Shortness of Breath Gastrointestinal: Nausea Physical Examination - Vital Signs Temperature: 97.6 F Blood Pressure: 107/56 Pulse: 59 Respirations: 18 Pulse Ox (%): 90 - Physical Exam General: Alert, Oriented x3, Other (Depressed affect patient was crying at the bedside) Respiratory: Crackles/rales (Crackles bilaterally) Cardiovascular: No edema, Regular rate/rhythm Gastrointestinal: Normal bowel sounds, Soft and benign Assessment & Plan - Problems (Diagnosis) (1) Interstitial lung disease Current Visit: Yes Status: Acute Plan: Patient has interstitial lung disease with significant bilateral ground-glass changes 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
[2020-06-15 10:47] LABS: Platelet Estimate DECR; White Blood Cell Scan OK (OK)
[2020-06-15 10:48] LABS: Blood Morphology Comment NOTED (NOT SEEN); Rouleau SLIGHT
[2020-06-15 11:14] VITALS: O2SAT 95
--- NOTE | 2020-06-15 12:42 | P.DS ---
Admission Date: 06/08/20 Discharge Date: 06/15/20 Disposition: DC HOME/HOME HEALTH CARE Discharge Condition: FAIR Reason for Admission: rectal bleeding Consultations: Gastroenterology- Dr. Knight Pulmonology - Dr. Lua Cardiology - Dr. Sneed Procedures: GI bleed scan (06/08): No evidence of active GI bleeding during this examination Liver ultrasound (06/08): Nodular hepatic contour with increased echotexture consistent with cirrhosis. Unremarkable ultrasound spleen CXR (06/09): Lungs are grossly clear. Small left pleural effusion. Changes of prior CABG were noted with pacemaker/defibrillator noted. CT chest (06/10): Mediastinal and hilar lymphadenopathy pattern has not clearly changed from January 2019. Prominent interstitial and alveolar opacities in each upper lobe in the superior segment of each lower lobe favoring an infectious/inflammatory process. A 15 millimeter spiculated density in the superior most aspect left lower lobe is identified. Pneumonia like consolidation was seen in this region on the January 2019 study. This could be remnant scarring from the prior infectious process or a suspicious pulmonary nodule. This superior segment left lower lobe nodule finding warrants ongoing monitoring. Re-evaluation in 3-[address] imaging suggested to monitor for stability. PET CT imaging may not be helpful as there appears to be active infectious/inflammatory findings in this region and in the upper lung salazar overall. Active infection and malignancy can have a similar appearance on PET-CT imaging Paracentesis (06/10): 2 L of yellow fluid removed. EGD (06/12): Small hiatal hernia, mild atrophic gastritis in the body of the stomach, moderate gastritis in antrum, no active bleeding or old blood noted in stomach. CXR (06/13): Mild bilateral interstitial lung opacities appear slightly progressive. Small bilateral pleural effusions are present. 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 Reported 3 episodes of bloody bowel movements with clots since morning prior to admission associated with mild abdominal pain. He has a history of GI bleed in the past. Patient has undergone EGD, colonoscopy and capsule endoscopy with no source of bleeding identified in the past year. Patient had a CT abdomen and pelvis done yesterday which demonstrates nodular liver suggesting cirrhosis and moderate ascites. 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 Patient rectal bleeding is likely secondary to portal hypertension. Hospital Course: Lower GI bleed / bright red blood per rectum Patient was admitted for further evaluation. He was started on Protonix, octreotide infusions, and Levaquin for SBP prophylaxis. During his hospitalization he had stable hemoglobin, and never had any further bright red blood per rectum. Tagged RBC nuclear scan was negative. Gastroenterology was consulted, family and patient initially declined EGD and colonoscopy. Eventually agreed to EGD for evaluation of varices seen on CT. New diagnosis of liver cirrhosis with ascites Patient underwent paracentesis on 06/10 with 2L removed, per EMR review: cell count differential, cultures, albumin, protein, LDH, glucose, triglyceride, and cytology were ordered. However not all have resulted. The fluid analysis was not consistent with SBP. (WBC: 86, RBC: 1680, neutrophils: 57, lymphocytes: 17, no eosinophils, mononuclear cell: 26). negative Gram stain and culture. Unclear etiology of liver cirrhosis, possibly amiodarone toxicity vs alcoholic cirrhosis vs others (hepatitis panel and AFP were obtained on 06/09 and 06/10 and are still pending at time of discharge. Patient reported remote history of 30+ yrs of drinking alcohol daily but states he quit drinking a few decades ago. Patient's ascites continued to slowly return during his hospitalization, with slight distension Wednesday into Wednesday. Patient felt ready to be discharged home and was looking forward to resuming most of his daily routines. Outpatient ther apeutic paracentesis was ordered to be done in the upcoming week. Family and patient were advised to return to ED for more urgent paracentesis if patient becomes more dyspneic. Family are arranging for patient to follow up with a trust manager assistant in [place]. They state a family member had a liver transplant many years ago and they are somewhat familiar with this process. Patient blood pressure throughout his hospitalization ranged from 90s-110s/40s-60s and HR was mostly in the 50s. His carvedilol was discontinued due to hypotension. He was not started on spironolactone due to his hypotension as well. Hopefully as he continues to improve, he may be able to tolerate initiation in the near future. Hypoxemia secondary to liver cirrhosis, possible pneumonia common interstitial lung disease likely secondary to amiodarone toxicity Patient reported having some shortness of breath on admission, seemed to worsen the following day and eventually requiring high-flow nasal cannula. CT chest was obtained as noted above. Review of EMR revealed patient had MRSA pneumonia approximately 1 year ago. On 06/11, Levaquin was switched to doxycycline. Pulmonology was consulted, and felt CT findings were likely due to amiodarone toxicity and less likely infectious etiology. Amiodarone was discontinued and patient was started on steroids. Patient began to have improvement in symptoms, and was eventually weaned to 3 L nasal cannula. He is discharged home with home oxygen, and to take 20 mg prednisone b.i.d. for at least 2 weeks, then taper. He is to follow up with pulmonology. WBC: 14.6 on admission, increased to 17.8 on 06/11. Antibiotics switched from Levaquin to doxycycline and the patient was started on steroids. Leukocytosis peaked at 18.1 on 06/13 and then continued to downtrend 14.4. Pro calcitonin: 3.73 on 06/12 improved to 0.68 on day of discharge. He will continue doxycyline for an additional 7 days after discharge. Vital Signs/Physical Exam: Temp Pulse Resp BP Pulse Ox 97.6 F 59 18 107/56 L 90 L 06/15/20 10:26 06/15/20 10:26 06/15/20 10:26 06/15/20 10:26 06/15/20 10:26 General: Alert, In no apparent distress, Oriented x3, Cachectic HEENT: Sclerae nonicteric Respiratory: Clear to auscultation bilaterally, Diminished (slightly at bases bilaterally. on 3L NC) Cardiovascular: No edema, Regular rate/rhythm Gastrointestinal: Other (normal bowel sounds, mild-moderate distention, +fluid wave, moderate ascites, no tenderness. ) Musculoskeletal: No tenderness Integumentary: No rashes, No erythema Neurological: Normal speech, Normal affect Laboratory Data at Discharge: WBC 14.4 K/uL (4.3-10.9) H 06/15/20 05:26 Hgb 13.3 g/dL (13.6-17.9) L 06/15/20 05:26 Hct 41.7 % (39.6-49.0) 06/15/20 05:26 Plt Count 95 K/uL (152-406) L 06/15/20 05:26 PT 17.8 SECONDS (9.5-12.5) H 06/12/20 03:26 INR 1.52 06/12/20 03:26 Sodium 143 mmol/L (136-145) 06/15/20 05:26 Potassium 4.1 mmol/L (3.5-5.1) 06/15/20 05:26 BUN 28 mg/dL (7-18) H 06/15/20 05:26 Creatinine 1.09 mg/dL (0.55-1.3) 06/15/20 05:26 Glucose 150 mg/dL (74-106) H 06/15/20 05:26 Phosphorus 3.5 mg/dL (2.5-4.9) 06/09/20 05:50 Magnesium 2.5 mg/dL (1.8-2.4) H 06/15/20 05:26 Total Bilirubin 0.8 mg/dL (0.2-1.0) 06/15/20 05:26 AST 58 U/L (15-37) H 06/15/20 05:26 ALT 52 U/L (12-78) 06/15/20 05:26 Alkaline Phosphatase 194 U/L (45-117) H 06/15/20 05:26 Troponin I < 0.02 ng/mL (0.0-0.045) 06/09/20 09:26 Triglycerides 162 mg/dL (<150) H 06/09/20 12:17 Home Medications: Donepezil [Aricept*] 10 mg PO DAILY 06/08/20 Multivitamin [Daily Multivitamin] 1 tab PO DAILY 06/08/20 Pantoprazole [Protonix Tab*] 40 mg PO DAILY 06/08/20 Pravastatin Sodium 80 mg PO BEDTIME 06/08/20 Doxycycline Hyclate [Vibramycin] 100 mg PO BID 7 Days #14 capsule 06/15/20 predniSONE [Prednisone] 20 mg PO SEECOM 30 Days #44 tablet 06/15/20 New Medications: predniSONE [Prednisone] 20 mg PO SEECOM 30 Days #44 tablet Doxycycline Hyclate [Vibramycin] 100 mg PO BID 7 Days #14 capsule Patient Discharge Instructions: Follow up with PCP within 3-5 days. Follow up with pulmonology (Dr. Lua) in ~1-2 weeks. Follow up with cardiology within 1 month. Follow up with gastroenterology within 2-3 weeks. Medications on discharge: Prednisone 20 mg twice a day for 2 weeks, then 10 mg twice a day - you will need to follow up with your doctor for continued prescription. ---doxycycline 100 mg twice a day for 7 days. -- your amiodarone and carvedilol were stopped on discharge, follow up with your supervisor real estate office for potentially restarting carvedilol. Diet: Regular (low salt diet, drink 2 ensures/day if not eating well.) Activity: Fall precautions Followup: Chaitanya Lua MD [ACTIVE - CAN ADMIT] - Thomas Sneed MD [ACTIVE - CAN ADMIT] - Ben Eden MD [Primary Care Provider] - Ben Knight MD [ASSOCIATE-ACTIVE - CAN ADMIT] - Time spent managing pt's care (in minutes): 35
[2020-06-15 14:40] VITALS: BP 117/58; TEMP 97.8
--- NOTE | 2020-06-15 21:54 | CON ---
Date of Consultation: 06/12/2020 Reason For Consultation: Questions regarding his anticoagulation considering he came in with lower G I bleed. Possible amiodarone toxicity. Description Of Procedure: Mr. Macias is a 69-year-old male, who has a history of paroxysmal atrial fibrillation, coronary artery disease, status post CABG. He has hypertension, dyslipidemia. He has had ablations for his atrial fibrillation. He has a defibrillator. He has had a femoral-popliteal s urgery for peripheral vascular disease. Came in with GI bleed, ascites. He is status post thoracent esis and paracentesis. He has cirrhosis, dementia, hypoxia. It is thought that he may have amiodaro ne toxicity. CT of the lung revealed alveolar interstitial opacities consistent with inflammation. He denied any chest pain or syncope or palpitation. Denied any fever or chills. Allergies: HE IS ALLERGIC TO PENICILLIN. Review of Systems: Positive for being a DNR. Social History: Negative. Family History: Noncontributory. Medications: At home include amiodarone, Coreg, Pravachol, Aricept, and Protonix. Physical Examination: Vital Signs: Stable. He was afebrile. HEENT: Negative. Neck: Supple. No bruit, lymphadenopathy, JVD, or thyromegaly. Chest: Expiratory wheezes. No rales. Cardiac: Regular rhythm and rate. No murmurs, gallops, or rubs. Abdomen: Obese with positive ascites. Extremities: 1+ edema. Diagnostic Data: As stated earlier. Impression And Plan: 1.The patient with gastrointestinal bleed, needs to be without any anticoagulation. 2.Possible amiodarone toxicity with liver cirrhosis and hypoxia, and I think we need to discontinue that. He is in sinus rhythm. 3.Coronary artery disease, status post coronary artery bypass graft, that is stable. We need to con tinue Coreg. 4.Hypertension, stable. 5.Dyslipidemia, on Pravachol. 6.Status post ablation and defibrillator. This seem to be stable. 7.Peripheral artery disease, status post femoral-popliteal, that is stable. 8.His other problems include dementia and gastroesophageal reflux disease. He is on Aricept and Pro tonix. I do not recommend any further cardiac workup at this point. He has already had thoracentesi s and paracentesis. We should get him off the amiodarone. Continue Levaquin, Protonix, and Coreg. I will be available for questions if the need arises. ANDREZ/MODL Voice ID: [id number] Report ID: [id number]
[2020-06-18 06:08] LABS: HBsAG Nonreactive (Nonreactive)
== END 2020-06-15 15:04 | disposition home health service (06) | DRG 441 ==
LOC: ER 22:17 → 2ND 06-08 01:56 → OBSVTOIN 06-08 01:56
PROVIDERS: ADMIT Internal Medicine; ATTEND Hospitalist
PROC: 0W9G3ZZ Drainage of Peritoneal Cavity, Percutaneous Approach (ICD-10-PCS; 2020-06-10)
PROC: 0DB68ZX Excision of Stomach, Via Natural or Artificial Opening Endoscopic, Diagnostic (ICD-10-PCS; principal; 2020-06-12 12:00)
DX: K76.6 Portal hypertension (principal); J96.01 Acute respiratory failure with hypoxia; K29.41 Chronic atrophic gastritis with bleeding; I85.11 Secondary esophageal varices with bleeding; J18.9 Pneumonia, unspecified organism; I48.20 Chronic atrial fibrillation, unspecified; R64 Cachexia; I50.32 Chronic diastolic (congestive) heart failure; J44.0 Chronic obstructive pulmonary disease with (acute) lower respiratory infection; K70.31 Alcoholic cirrhosis of liver with ascites; I11.0 Hypertensive heart disease with heart failure; F03.90 Unspecified dementia, unspecified severity, without behavioral disturbance, psychotic disturbance, mood disturbance, and anxiety; E78.5 Hyperlipidemia, unspecified; I25.10 Atherosclerotic heart disease of native coronary artery without angina pectoris; I73.9 Peripheral vascular disease, unspecified; K21.9 Gastro-esophageal reflux disease without esophagitis; I95.9 Hypotension, unspecified; K44.9 Diaphragmatic hernia without obstruction or gangrene; I25.2 Old myocardial infarction; R59.0 Localized enlarged lymph nodes; R00.1 Bradycardia, unspecified; R94.5 Abnormal results of liver function studies; T36.0X5A Adverse effect of penicillins, initial encounter; T46.2X5A Adverse effect of other antidysrhythmic drugs, initial encounter; Z79.82 Long term (current) use of aspirin; Z79.899 Other long term (current) drug therapy; Z90.49 Acquired absence of other specified parts of digestive tract; Z95.1 Presence of aortocoronary bypass graft; Z88.0 Allergy status to penicillin; Z95.810 Presence of automatic (implantable) cardiac defibrillator; Z87.891 Personal history of nicotine dependence; Z86.14 Personal history of Methicillin resistant Staphylococcus aureus infection; Z68.20 Body mass index [BMI] 20.0-20.9, adult; Z79.52 Long term (current) use of systemic steroids
CPT/HCPCS: 36415; 49083; 71045; 71046; 71260; 74177; 76705; 78278; 80048; 80053; 80074; 80076; 81001; 82040; 82105; 82140; 82274; 82805; 83690; 83735; 83880; 84100; 84145; 84155; 84439; 84443; 84478; 84484; 85014; 85018; 85025; 85610; 86850; 86900; 86901; 87040; 87045; 87046; 87070; 87324; 87449; 88305; 88312; 89050; 89055; 93005; 94002; 94003; 94640; 94760; 96374; 96375; 97112; 97116; 97161; 99285; A9560; C9113; J1644; J2354; J2370; J2704; J2920; J7030; J7040; J7050; J7512; Q9967; U0002

== ENCOUNTER 2020-06-17 12:41 | Emergency (ER) | payer OTHER ==
[2020-06-17 17:25] LABS: Absolute Lymphocytes (CBC) 0.9 K/uL (0.7-4.9); Basophils % 0.3 % (0-1.3); Hematocrit 43.9 % (39.6-49.0); Lymphocytes % 4.4 % (15.3-44.8); MPV 9.4 fL (7.6-11.3); RBC Red Blood Cell Count 5.12 M/uL (4.33-5.43)
[2020-06-17 17:30] LABS: Protime INR 1.4
[2020-06-17 17:33] LABS: Albumin 2.2 g/dL (3.4-5.0); Bilirubin Direct 0.8 mg/dL (0-0.2); Bilirubin Total 1.7 mg/dL (0.2-1.0); Potassium 4.7 mmol/L (3.5-5.1); Protein, Total 5.9 g/dL (6.4-8.2)
--- NOTE | 2020-06-17 17:34 | ER ---
Nurse's Notes [facility] Name: Carlos Eduardo Macias Age: 69 yrs Sex: Male : 1950 Arrival Date: 06/17/2020 Time: 12:44 Bed 4 Private MD: Diagnosis: Ascites;Unspecified cirrhosis of liver Presentation: 06/17 12:56 Chief complaint: Patient states: Abdominal swelling continues. Was admitted and had ll1 paracentesis while here (06/07-06/15) Right sided of abdomen is leaking where they did the paracentesis. No fever. Had outpatient order for paracentesis from Dr. Hernandez and Dr. Knight, unable to schedule until Wednesday. Coronavirus screen: Client denies travel out of the [place] in the last 14 days. At this time, the client does not indicate any symptoms associated with coronavirus-19. Ebola Screen: Patient denies travel to an Ebola-affected area in the 21 days before illness onset. Initial Sepsis Screen: Does the patient meet any 2 criteria? No. Patient's initial sepsis screen is negative. Does the patient have a suspected source of infection? Yes: Acute abdominal pain. Risk Assessment: Do you want to hurt yourself or someone else? Patient reports no desire to harm self or others. Onset of symptoms was June 15, 2020. 12:56 Method Of Arrival: Wheelchair ll1 12:56 Acuity: CHRISTOFER 3 ll1 Historical: - Allergies: 13:01 PENICILLINS; ll1 - PMHx: 13:01 Atrial Fib; CAD; High Cholesterol; Hypertension; Myocardial infarction; ll1 - PSHx: 13:01 Cholecystectomy; Appendectomy; CABG; heart ablation; defib; fem pop; extensive heart ll1 surgeries; paracentesis; - Immunization history:: Flu vaccine is up to date. - Social history:: Smoking status: Patient denies any tobacco usage or history of. - Family history:: not pertinent. - Hospitalizations: : The patient was recently seen at [facility]. Screenin:13 Abuse screen: Denies threats or abuse. Denies injuries from another. Nutritional hb screening: No deficits noted. Tuberculosis screening: No symptoms or risk factors identified. Fall Risk None identified. Assessment: 17:13 General: Appears in no apparent distress. Behavior is calm, cooperative. Pain: Pain hb currently is 5 out of 10 on a pain scale. Neuro: Level of Consciousness is awake, alert, obeys commands, Oriented to person, place, time, situation. Cardiovascular: Capillary refill < 3 seconds Patient's skin is warm and dry. Respiratory: Airway is patent Respiratory effort is even, unlabored, Respiratory pattern is regular, symmetrical. GI: Reports lower abdominal pain, upper abdominal pain. : No signs and/or symptoms were reported regarding the genitourinary system. EENT: No signs and/or symptoms were reported regarding the EENT system. Derm: Skin is pink, warm \T\ dry. Musculoskeletal: No signs and/or symptoms reported regarding the musculoskeletal system. Vital Signs: 12:56 BP 111 / 61; Pulse 64; Resp 17; Temp 97.0; Pulse Ox 100% ; Weight 58.97 kg; Height 5 ll1 ft. 6 in. (167.64 cm); Pain 5/10; 12:56 Body Mass Index 20.98 (58.97 kg, 167.64 cm) ll1 ED Course: 12:44 Patient arrived in ED. ds1 13:00 Triage completed. ll1 13:01 Arm band placed on. ll1 16:26 Juan Jose Hernandez MD is Attending Physician. rn 17:13 Natty Rader, RN is Primary Nurse. hb 17:13 Patient has correct armband on for positive identification. Bed in low position. Call hb light in reach. Side rails up X 1. 17:13 Inserted saline lock: 20 gauge in right antecubital area, using aseptic technique. hb Blood collected. 17:33 Ben Knight MD is Referral Physician. rn 17:36 No provider procedures requiring assistance completed. hb 18:20 IV discontinued, intact, bleeding controlled, No redness/swelling at site. Pressure vg1 dressing applied. Administered Medications: No medications were administered Outcome: 17:33 Discharge ordered by . rn 18:33 Patient left the ED. vg1 Signatures: Deloris Parada ds1 Juan Jose Hernandez MD MD rn Baxter, Heather, RN RN Lula Sykes RN RN vg1 Maria Esther Vickers RN RN 1
--- NOTE | 2020-06-17 17:34 | EDPHYS ---
Physician Documentation [facility] Name: Carlos Eduardo Macias Age: 69 yrs Sex: Male : 1950 Arrival Date: 06/17/2020 Time: 12:44 Bed 4 Private MD: ED Physician Juan Jose Hernandez HPI: 06/17 17:28 This 69 yrs old Male presents to ER via Wheelchair with complaints of rn Abdominal Swelling. 17:28 The patient presents with abdominal distention. Onset: The symptoms/episode rn began/occurred at an unknown time. The symptoms do not radiate. Associated signs and symptoms: Pertinent negatives: nausea and vomiting, blood in stools, chest pain, constipation, diarrhea, dysuria, fever, shortness of breath, testicular pain, vomiting. The symptoms are described as achy. Modifying factors: The symptoms are alleviated by nothing, the symptoms are aggravated by nothing. Severity of pain: At its worst the pain was mild in the emergency department the pain is unchanged. The patient has experienced similar episodes in the past. The patient has been recently been admitted at [facility]. Reports abd swelling, just admitted with paracentesis 6 days ago, has outpt paracentesis scheduled 2 days from now, felt abdomen swelling again so came in to see if needed another paracentesis. No fever. . Historical: - Allergies: 13:01 PENICILLINS; ll1 - PMHx: 13:01 Atrial Fib; CAD; High Cholesterol; Hypertension; Myocardial infarction; ll1 - PSHx: 13:01 Cholecystectomy; Appendectomy; CABG; heart ablation; defib; fem pop; extensive heart ll1 surgeries; paracentesis; - Immunization history:: Flu vaccine is up to date. - Social history:: Smoking status: Patient denies any tobacco usage or history of. - Family history:: not pertinent. - Hospitalizations: : The patient was recently seen at [facility]. ROS: 17:28 Constitutional: Negative for fever, chills, and weight loss, Eyes: Negative for injury, rn pain, redness, and discharge, Cardiovascular: Negative for chest pain, palpitations, and edema, Respiratory: Negative for shortness of breath, cough, wheezing, and pleuritic chest pain, Abdomen/GI: + abd distension Back: Negative for injury and pain, MS/Extremity: Negative for injury and deformity, Skin: Negative for injury, rash, and discoloration, Neuro: Negative for headache, numbness, tingling, and seizure. Exam: 17:28 Constitutional: Thin male, no acute distress Head/Face: Normocephalic, atraumatic. estate attorney: Regular rate and rhythm. No pulse deficits. Respiratory: No increased work of breathing, no retractions or nasal flaring. Abdomen/GI: soft, mild swelling with RLQ paracentesis wound, no drainage. No peritoneal signs. MS/ Extremity: Pulses equal, no cyanosis. + bilateral lower ext edema. Neuro: Awake and alert, GCS 15 Vital Signs: 12:56 BP 111 / 61; Pulse 64; Resp 17; Temp 97.0; Pulse Ox 100% ; Weight 58.97 kg; Height 5 ll1 ft. 6 in. (167.64 cm); Pain 5/10; 12:56 Body Mass Index 20.98 (58.97 kg, 167.64 cm) ll1 MDM: 16:27 Patient medically screened. rn 17:28 Differential diagnosis: cirrhosis, ascites. Data reviewed: vital signs, nurses notes, rn old medical records, and as a result, I will discharge patient. Counseling: I had a detailed discussion with the patient and/or guardian regarding: the historical points, exam findings, and any diagnostic results supporting the discharge/admit diagnosis, the need for outpatient follow up, to return to the emergency department if symptoms worsen or persist or if there are any questions or concerns that arise at home. Special discussion: I discussed with the patient/guardian in detail that at this point there is no indication for admission to the hospital. It is understood, however, that if the symptoms persist or worsen the patient needs to return immediately for re-evaluation. Based on the history and exam findings, there is no indication for further emergent testing or inpatient evaluation. I discussed with the patient/guardian the need to see the crank hand for further evaluation of the symptoms. ED course: Had Dr. Hernandez, hospitalist, come and eval patient, states abdomen same exam, feels soft to him as well, already has outpt appt with GI and for paracentesis, will dc home. . 06/17 16:45 Order name: Basic Metabolic Panel; Complete Time: 18:08 rn 06/17 16:45 Order name: CBC with Diff rn 06/17 16:45 Order name: Hepatic Function; Complete Time: 18:08 rn 06/17 16:45 Order name: IV Saline Lock; Complete Time: 17:36 rn 06/17 16:45 Order name: PT-INR; Complete Time: 18:08 rn 06/17 16:45 Order name: Ptt, Activated; Complete Time: 18:08 rn 06/17 16:45 Order name: Labs collected and sent; Complete Time: 17:36 rn Administered Medications: No medications were administered Disposition: 06/17/20 17:33 Discharged to Home. Impression: Ascites, Unspecified cirrhosis of liver. - Condition is Stable. - Discharge Instructions: Ascites, Paracentesis, Paracentesis, Care After. - Medication Reconciliation Form, Thank You Letter, Antibiotic Education, Prescription Opioid Use form. - Follow up: Ben Knight MD; When: As needed; Reason: Recheck today's complaints, Re-evaluation by your physician. - Problem is an ongoing problem. - Symptoms have improved. Signatures: Dispatcher [employer] EDJuan Jose Ryder MD MD rn Garcia, Victoria, RN RN vg1 Maria Esther Vickers RN RN ll1 Corrections: (The following items were deleted from the chart) 18:33 17:33 06/17/2020 17:33 Discharged to Home. Impression: Ascites; Unspecified cirrhosis vg1 of liver. Condition is Stable. Forms are Medication Reconciliation Form, Thank You Letter, Antibiotic Education, Prescription Opioid Use. Follow up: Ben Knight; When: As needed; Reason: Recheck today's complaints, Re-evaluation by your physician. Problem is an ongoing problem. Symptoms have improved. rn
[2020-06-17 20:44] LABS: Blood Morphology Comment NOTED (NOT SEEN); Platelet Estimate ADEQ; Teardrop Cell 2+
[2020-06-17 23:51] VITALS: BP 111/61; TEMP 97; O2SAT 100
== END 2020-06-17 18:33 | disposition home or self-care (01) ==
LOC: ER 12:41
DX: R18.8 Other ascites (principal); K74.60 Unspecified cirrhosis of liver; I10 Essential (primary) hypertension; Z95.1 Presence of aortocoronary bypass graft; Z88.0 Allergy status to penicillin
CPT/HCPCS: 36415; 80048; 80076; 85025; 85610; 85730; 99283

== ENCOUNTER 2020-07-12 17:14 | Observation (INO) | payer OTHER ==
[2020-07-12 18:17] LABS: Absolute Lymphocytes (CBC) 0.5 K/uL (0.7-4.9); Basophils % 0.5 % (0-1.3); Hematocrit 41.9 % (39.6-49.0); Lymphocytes % 2.9 % (15.3-44.8); MPV 9.5 fL (7.6-11.3); RBC Red Blood Cell Count 4.75 M/uL (4.33-5.43)
[2020-07-12 18:34] LABS: Protime INR 1.25
[2020-07-12 18:35] LABS: Bilirubin Direct 1.2 mg/dL (0-0.2); Bilirubin Total 2.3 mg/dL (0.2-1.0); Magnesium 2.7 mg/dL (1.8-2.4); Potassium 4.7 mmol/L (3.5-5.1); Protein, Total 5.4 g/dL (6.4-8.2); Troponin (Emerg Dept Use Only) 0.02 ng/mL (0.0-0.045)
--- NOTE | 2020-07-12 19:28 | ER ---
Nurse's Notes [facility] Name: Carlos Eduardo Macias Age: 69 yrs Sex: Male : 1950 Arrival Date: 07/12/2020 Time: 17:23 Bed 7 Private MD: Diagnosis: Acute kidney failure;Dehydration;Chronic hepatic failure Presentation: 07/12 17:23 Chief complaint: EMS states: called out for a lift assist at first, pt was on the sv ground at home. Vitals were taken and pt was hypotensive with SBP in the 90s. c/o generalized weakness. Coronavirus screen: Client denies travel out of the [place] in the last 14 days. At this time, the client does not indicate any symptoms associated with coronavirus-19. Ebola Screen: No symptoms or risks identified at this time. Initial Sepsis Screen: Does the patient meet any 2 criteria? No. Patient's initial sepsis screen is negative. Does the patient have a suspected source of infection? No. Patient's initial sepsis screen is negative. Risk Assessment: Do you want to hurt yourself or someone else? Patient reports no desire to harm self or others. Onset of symptoms was July 12, 2020. 17:23 Method Of Arrival: EMS: [facility] 17:23 Acuity: [facility] 3 sv Triage Assessment: 17:23 General: Appears in no apparent distress. uncomfortable, Behavior is calm, cooperative, sv appropriate for age. Pain: Denies pain. Neuro: Level of Consciousness is awake, alert, obeys commands, Oriented to person, place, time, situation, Moves all extremities. Full function. Respiratory: Respiratory effort is even, unlabored, Respiratory pattern is regular, symmetrical. GI: Abdomen is noted to have ascites, Abd is non tender X 4 quads Hepatomegaly noted. Derm: Skin is normal. Historical: - Allergies: 17:25 PENICILLINS; sv - Home Meds: 22:43 amiodarone 200 mg Oral tab 1 tab once daily [Active]; aspirin 81 mg Oral TbEC 1 tab lp1 once daily [Active]; atorvastatin 10 mg Oral tab [Active]; Coreg 3.125 mg Oral tab 1 tab every 12 hours [Active]; losartan 50 mg Oral tab 1 tab once daily [Active]; pravastatin 80 mg Oral tab 1 tab nightly [Active]; - PMHx: 17:25 Atrial Fib; CAD; High Cholesterol; Hypertension; Myocardial infarction; sv 17:46 Liver cancer; sv - PSHx: 17:25 Cholecystectomy; Appendectomy; CABG; heart ablation; defib; fem pop; extensive heart sv surgeries; paracentesis; - Immunization history:: Adult Immunizations up to date. - Social history:: Smoking status: . Screenin:25 Abuse screen: Denies threats or abuse. Denies injuries from another. Nutritional sv screening: No deficits noted. Tuberculosis screening: No symptoms or risk factors identified. Fall Risk None identified. Assessment: 18:31 Reassessment: Patient appears in no apparent distress at this time. No changes from sv previously documented assessment. Patient and/or family updated on plan of care and expected duration. Pain level reassessed. Patient is alert, oriented x 3, equal unlabored respirations, skin warm/dry/pink. 19:15 Reassessment: Verbal order from Provider for labs of blood cultures, ammonia, lactate, lp1 and procalcitonin. Reassessment: Provider at bedside to discuss results and plan of care with patient and son. 19:17 General: Appears in no apparent distress. Behavior is calm. Pain: Denies pain. Neuro: lp1 Level of Consciousness is awake, alert, obeys commands. Cardiovascular: Rhythm is sinus rhythm. Respiratory: Respiratory effort is even, unlabored, Respiratory pattern is regular, Breath sounds are clear bilaterally. GI: Abdomen is round noted to have ascites, Bowel sounds present X 4 quads. Derm: Skin is fragile, is thin, with poor turgor Skin is dry, Skin is normal, Wound noted Other: abrasion noted to right elbow, superficial skin tear. Musculoskeletal: No deficits noted. 20:35 Reassessment: Patient given lemon swabs for comfort; lights turned of per patient lp1 request, resting, no apparent needs. 21:30 Reassessment: Patient appears in no apparent distress at this time. Patient resting, lp1 eyes closed, respiration unlabored. 22:30 Reassessment: Assisted patient with BM in bedpan; aware of pending admission. Neuro: lp1 Level of Consciousness is awake, alert, obeys commands. Vital Signs: 17:23 BP 126 / 77; Pulse 87; Resp 16; Temp 98.2; Pulse Ox 96% ; sv 17:30 BP 108 / 72; Pulse 82; Resp 16; Pulse Ox 96% ; sv 18:15 BP 90 / 71; Pulse 78; Resp 16; Pulse Ox 95% ; sv 19:16 BP 100 / 58; Pulse 72; Resp 16; Pulse Ox 95% on R/A; lp1 20:15 BP 119 / 58; Pulse 72; Resp 15; Pulse Ox 96% on R/A; lp1 20:50 BP 134 / 84; Pulse 70; Resp 16; Temp 97.9(O); Pulse Ox 96% on R/A; Pain 0/10; lp1 22:00 BP 98 / 58; Pulse 71; Resp 17; Pulse Ox 95% on R/A; lp1 22:56 BP 108 / 53; Pulse 73; Resp 17; Pulse Ox 95% on R/A; lp1 ED Course: 17:23 Patient arrived in ED. sv 17:23 Mercy Carvalho, RN is Primary Nurse. sv 17:24 Triage completed. sv 17:25 Arm band placed on. sv 17:25 Patient has correct armband on for positive identification. Placed in gown. Bed in low sv position. Call light in reach. Side rails up X2. Pulse ox on. NIBP on. Door closed. Warm blanket given. Head of bed elevated. 17:26 Leopold[facility] Hall [facility]. cp 17:26 Vishal Julio MD is Attending Physician. cp 17:26 Maintain EMS IV. Dressing intact. Site clean \T\ dry. Gauge \T\ site: 20G R AC. sv 17:45 Awaiting ED provider evaluation. sv 17:46 Nurse Practitioner and/or Physician Credit Or Loans Officer to see patient. sv 18:05 Inserted saline lock: 20 gauge in right antecubital area, using aseptic technique. sv Blood collected. Flushed right antecubital with 2 ml normal saline. 18:30 XRAY Chest (1 view) Sent. sv 18:34 XRAY Chest (1 view) In Process Unspecified. EDMS 18:44 EKG done, by ED staff, reviewed by Leopoldo AMIN. sv 19:04 Report given to Brenda RN and Cecilio HILL. sv 19:06 Primary Nurse role handed off by Mercy Carvalho, LIZ sv 19:14 Brenda Kahn, LIZ is Primary Nurse. lp1 19:27 Bud Simms DO is Hospitalizing Provider. cp 19:59 CT Head Brain wo Cont In Process Unspecified. EDMS 20:23 No provider procedures requiring assistance completed. Patient admitted, IV remains in lp1 place. 22:41 Straight cath inserted, using sterile technique, 16 Fr. Specimen obtained. By LIZ Velasquez.lp1 Administered Medications: 20:40 Not Given (Physician Discretion): NS 0.9% 500 ml IV at 500 ml/hr continuous cp 20:48 Drug: NS 0.9% 1000 ml Route: IV; Rate: 75 ml/hr; Site: right antecubital; lp1 22:46 Follow up: IV Status: Infusion continued upon admission lp1 Outcome: 19:28 Decision to Hospitalize by Provider. cp 20:23 Condition: stable lp1 20:23 Instructed on the need for admit. 22:46 Admitted to Tele via stretcher, room 402, with chart, Report called to LIZ Akhtar lp1 23:01 Patient left the ED. lp1 Signatures: Dispatcher [employer] Mercy Sanderson RN RN Brenda Kahn RN RN lp1 Leopoldo Hall, ELOISA PA cp
--- NOTE | 2020-07-12 19:28 | EDPHYS ---
Physician Documentation [facility] Name: Carlos Eduardo Macias Age: 69 yrs Sex: Male : 1950 Arrival Date: 07/12/2020 Time: 17:23 Bed 7 Private MD: ED Physician Vishal Julio HPI: 07/12 18:00 This 69 yrs old Male presents to ER via EMS with complaints of Fall Injury, cp General Weakness. 18:00 Details of fall: The patient fell from seated position, toilet. cp 18:00 Onset: The symptoms/episode began/occurred today. Associated injuries: The patient cp sustained no obvious injury. Daughter in law reports patient was unable to get up from floor after falling from toilet. Life Alert was activated as patient was unattended and lives by himself. Patient has history of alcoholic liver failure and was on hospice until it was revoked earlier this week. Historical: - Allergies: 17:25 PENICILLINS; sv - Home Meds: 22:43 amiodarone 200 mg Oral tab 1 tab once daily [Active]; aspirin 81 mg Oral TbEC 1 tab lp1 once daily [Active]; atorvastatin 10 mg Oral tab [Active]; Coreg 3.125 mg Oral tab 1 tab every 12 hours [Active]; losartan 50 mg Oral tab 1 tab once daily [Active]; pravastatin 80 mg Oral tab 1 tab nightly [Active]; - PMHx: 17:25 Atrial Fib; CAD; High Cholesterol; Hypertension; Myocardial infarction; sv 17:46 Liver cancer; sv - PSHx: 17:25 Cholecystectomy; Appendectomy; CABG; heart ablation; defib; fem pop; extensive heart sv surgeries; paracentesis; - Immunization history:: Adult Immunizations up to date. - Social history:: Smoking status: . ROS: 18:05 Constitutional: Positive for poor PO intake, Negative for body aches, chills, fever. cp 18:05 Eyes: Negative for injury, pain, redness, and discharge. cp 18:05 Neck: Negative for pain with movement, pain at rest, stiffness. 18:05 Cardiovascular: Negative for chest pain. 18:05 Respiratory: Negative for cough, shortness of breath, wheezing. 18:05 Abdomen/GI: Positive for diarrhea, Negative for abdominal pain, nausea, vomiting, constipation, black/tarry stool. 18:05 Back: Negative for pain at rest, pain with movement. 18:05 Neuro: Positive for weakness, Negative for altered mental status, loss of consciousness, syncope. 18:05 All other systems are negative. Exam: 18:10 Constitutional: The patient appears in no acute distress, alert, awake, cp non-diaphoretic, non-toxic, well developed, well nourished. 18:10 Head/Face: Normocephalic, atraumatic. cp 18:10 Eyes: Periorbital structures: appear normal, Pupils: equal, round, and reactive to light and accomodation, Extraocular movements: intact throughout, Conjunctiva: normal, no exudate, no injection, Sclera: no appreciated abnormality, Lids and lashes: appear normal, bilaterally. 18:10 ENT: External ear(s): are unremarkable, Nose: is normal, Mouth: Lips: moist, Oral mucosa: moist, Posterior pharynx: Airway: no evidence of obstruction, patent. 18:10 Neck: ROM/movement: is normal, is supple, without pain, no range of motions limitations, no nuchal rigidity. 18:10 Chest/axilla: Inspection: normal, Palpation: is normal, no crepitus, no tenderness. 18:10 Cardiovascular: Rate: normal, Rhythm: regular, Edema: is not appreciated, JVD: is not appreciated. 18:10 Respiratory: the patient does not display signs of respiratory distress, Respirations: normal, no use of accessory muscles, no retractions, labored breathing, is not present, Breath sounds: are clear throughout, no decreased breath sounds, no stridor, no wheezing. 18:10 Abdomen/GI: Inspection: distension, that is mild, Bowel sounds: active, all quadrants, Palpation: abdomen is soft and non-tender, in all quadrants. 18:10 Back: pain, is absent, ROM is normal. 18:10 Musculoskeletal/extremity: Exam is negative for decreased range of motion, deformity, injury. 18:10 Skin: no rash present. 18:10 Neuro: Orientation: no acute changes, per family, Mentation: no acute changes, per family, able to follow commands, slow to respond, Motor: moves all fours, general weakness with no focal deficits. 18:50 ECG was reviewed by the Attending Physician. cp Vital Signs: 17:23 BP 126 / 77; Pulse 87; Resp 16; Temp 98.2; Pulse Ox 96% ; sv 17:30 BP 108 / 72; Pulse 82; Resp 16; Pulse Ox 96% ; sv 18:15 BP 90 / 71; Pulse 78; Resp 16; Pulse Ox 95% ; sv 19:16 BP 100 / 58; Pulse 72; Resp 16; Pulse Ox 95% on R/A; lp1 20:15 BP 119 / 58; Pulse 72; Resp 15; Pulse Ox 96% on R/A; lp1 20:50 BP 134 / 84; Pulse 70; Resp 16; Temp 97.9(O); Pulse Ox 96% on R/A; Pain 0/10; lp1 22:00 BP 98 / 58; Pulse 71; Resp 17; Pulse Ox 95% on R/A; lp1 22:56 BP 108 / 53; Pulse 73; Resp 17; Pulse Ox 95% on R/A; lp1 MDM: 17:29 Patient medically screened. cp 19:05 Data reviewed: vital signs, nurses notes, lab test result(s), EKG. cp 19:05 Test interpretation: by ED physician or midlevel provider: ECG. Counseling: I had a cp detailed discussion with the patient and/or guardian regarding: the historical points, exam findings, and any diagnostic results supporting the discharge/admit diagnosis, lab results, radiology results, the need for further work-up and treatment in the hospital. Response to treatment: the patient's symptoms have mildly improved after treatment. Physician consultation: Mando CR was contacted at 19:05, regarding admission, to the telemetry unit. patient's condition. 07/12 17:57 Order name: Basic Metabolic Panel; Complete Time: 18:58 07/12 19:02 Interpretation: Normal except: NA 132; GLUC 229; BUN 70; CRE 3.06; GFR 20; CA 7.5. 07/12 17:57 Order name: CBC with Diff; Complete Time: 22:15 07/12 19:01 Interpretation: Normal except: WBC 18.1; RDW 18.6; VITA% 91.2; LYM% 2.9; NEUT A 16.5; cp LYMA 0.5. 07/12 17:57 Order name: LFT's; Complete Time: 18:58 07/12 20:39 Interpretation: Normal except: AST 147; ALT 140; ALK 290; BILIT 2.3; BILID 1.2; TP 5.4; cp ALB 2.0; A/G 0.6; Reviewed, Reviewed, Reviewed, Reviewed. 07/12 17:57 Order name: Magnesium; Complete Time: 18:58 07/12 17:57 Order name: NT PRO-BNP; Complete Time: 18:58 07/12 17:57 Order name: PT-INR; Complete Time: 18:58 07/12 17:57 Order name: Troponin (emerg Dept Use Only); Complete Time: 18:58 07/12 19:00 Order name: Urine Microscopic Only 07/12 19:15 Order name: Blood Culture Adult (2) [facility] 07/12 19:15 Order name: Lactate; Complete Time: 20:38 [facility] 07/12 19:15 Order name: AMMONIA; Complete Time: 20:35 [facility] 07/12 20:35 Interpretation: Reviewed. 07/12 19:15 Order name: Procalcitonin; Complete Time: 22:15 [facility] 07/12 21:15 Order name: CBC Smear Scan; Complete Time: 22:15 EDMS 07/12 17:57 Order name: XRAY Chest (1 view); Complete Time: 22:15 07/12 17:57 Order name: EKG; Complete Time: 17:58 07/12 17:57 Order name: Cardiac monitoring; Complete Time: 18:30 07/12 17:57 Order name: EKG - Nurse/Tech; Complete Time: 18:30 07/12 17:57 Order name: IV Saline Lock; Complete Time: 18:30 07/12 17:57 Order name: Labs collected and sent; Complete Time: 18:30 07/12 17:57 Order name: O2 Per Protocol; Complete Time: 18:30 07/12 17:57 Order name: O2 Sat Monitoring; Complete Time: 18:30 07/12 19:00 Order name: Urine Dipstick-Ancillary (obtain specimen); Complete Time: 22:42 07/12 19:00 Order name: CT Head Brain wo Cont; Complete Time: 20:28 07/12 20:28 Interpretation: Report reviewed. 07/12 22:40 Order name: Urine Dipstick--Ancillary (enter results) tt3 07/12 22:42 Order name: SARS-COV-2 RT PCR; Complete Time: 23:10 EDMS EC:50 Rate is 85 beats/min. Rhythm is regular. NV interval is normal. QRS interval is cp prolonged at 142 msec. QT interval is normal. T waves are Inverted in leads II, III. Interpreted by me. Reviewed by me. Administered Medications: 20:40 Not Given (Physician Discretion): NS 0.9% 500 ml IV at 500 ml/hr continuous cp 20:48 Drug: NS 0.9% 1000 ml Route: IV; Rate: 75 ml/hr; Site: right antecubital; lp1 22:46 Follow up: IV Status: Infusion continued upon admission lp1 Disposition: 07/12/20 19:28 Hospitalization ordered by Bud Simms for Inpatient Admission. Preliminary diagnosis are Acute kidney failure, Dehydration, Chronic hepatic failure. - Bed requested for Telemetry/MedSurg (Inpatient). - Status is Inpatient Admission. lp1 - Condition is Stable. - Problem is new. - Symptoms have improved. Addendum: 07/14/2020 17:40 Co-signature as Attending Physician, Vishal Julio MD I agree with the assessment and k dr plan of care. Signatures: Dispatcher [employer] EDMS Rayna Vickers RN RN kl Verde, Stephanie, RN RN sv Rittger, Kevin, MD MD [facility] Brenda Kahn RN RN lp1 Mando Morales, PHYS ASST-C PHYS ASST-Cla1 Leopoldo Hall PA PA cp Corrections: (The following items were deleted from the chart) 07/12 19:02 19:00 Normal except: NA 132; GLUC 229; BUN 70; CRE 3.06; GFR 20. cp cp 20:34 19:28 Hospitalization Ordered by Bud Simms DO for Inpatient Admission. Preliminary cp diagnosis is Acute kidney failure; Dehydration. Bed requested for Telemetry/MedSurg (Inpatient). Status is Inpatient Admission. Condition is Stable. Problem is new. Symptoms have improved. cp 20:39 20:38 Normal except: AST 147; ALT 140; ALK 290; BILIT 2.3; BILID 1.2; TP 5.4; ALB 2.0; cp Reviewed, Reviewed, Reviewed, Reviewed. cp 21:44 21:19 CORONAVIRUS+MR.LAB.BRZ ordered. EDMS EDMS 22:10 20:34 07/12/2020 19:28 Hospitalization Ordered by Bud Simms DO for Inpatient kl Admission. Preliminary diagnosis is Acute kidney failure; Dehydration; Chronic hepatic failure. Bed requested for Telemetry/MedSurg (Inpatient). Status is Inpatient Admission. Condition is Stable. Problem is new. Symptoms have improved. cp 23:01 22:10 07/12/2020 19:28 Hospitalization Ordered by Bud Simms DO for Inpatient lp1 Admission. Preliminary diagnosis is Acute kidney failure; Dehydration; Chronic hepatic failure. Bed requested for Telemetry/MedSurg (Inpatient). Status is Inpatient Admission. Condition is Stable. Problem is new. Symptoms have improved. kl
[2020-07-12] MEDS ORDERED: NA CHLORIDE 0.9% 500 ML ONE (20:10)
--- NOTE | 2020-07-12 20:11 | RAD REPORT ---
EXAM DESCRIPTION: CT - Head Brain Wo Cont - 07/12/2020 7:59 pm CLINICAL HISTORY: WEAKNESS COMPARISON: No comparisons TECHNIQUE: Axial 5 mm thick images of the head were obtained without IV contrast. All CT scans are performed using dose optimization technique as appropriate and may include automated exposure control or mA/KV adjustment according to patient size. FINDINGS: No intracranial hemorrhage, mass, edema or shift of mid-line structures. No acute cortical based infarction seen. No cortical edema or sulcal effacement. The 2.5 centimeter area of decreased attenuation is present in the left frontal lobe subcortical white matter. 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 Moderate atrophy changes are present. Ventricle s are in proportion. No abnormal extra-axial fluid collections. Chronic ischemic changes appear mild. Mastoid air cells and visualized portions of the paranasal sinuses are clear. No acute bony findings. IMPRESSION: No intracranial hemorrhage is present. No acute cortical based infarction identified. 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 Chronic ischemic changes can mask nonhemorrhagic acute infarction. MR brain followup can be obtained if there is ongoing concern for acute ischemia.
--- NOTE | 2020-07-12 21:06 | RAD REPORT ---
EXAM DESCRIPTION: RAD - Chest Single View - 07/12/2020 6:34 pm CLINICAL HISTORY: general weakness, hypotension COMPARISON: Portable June 13 TECHNIQUE: AP portable chest image was obtained 07/12/2020 6:34 pm . FINDINGS: No focal mass or consolidation. Interstitial pattern is prominent but not clearly differen t from comparison. Left subclavian defibrillator is in place. Sternotomy wires are noted. Heart and v asculature are normal. No measurable pleural effusion and no pneumothorax. No acute bony abnormality seen. No acute aortic findings suspected. IMPRESSION: No acute cardiopulmonary process. No suspicious change from comparison.
[2020-07-12 21:15] LABS: Anisocytosis 1+; Blood Morphology Comment NOTED (NOT SEEN); Platelet Estimate DECR; White Blood Cell Scan OK (OK)
[2020-07-12 23:10] LABS: Urine Blood 2+ (NEG); Urine Glucose NEGATIVE (NEG); Urine Protein NEGATIVE (NEG); Urine Specific Gravity 1.025 (1.005-1.030); Urine pH 5.5 (5.0-7.0)
--- NOTE | 2020-07-12 23:16 | P.HP ---
Certification for Inpatient Patient admitted to: Observation With expected LOS: <2 Midnights Patient will require the following post-hospital care: Hospice Practitioner: I am a practitioner with admitting privileges, knowledge of patient current condition, hospital course, and medical plan of care. Services: Services provided to patient in accordance with Admission requirements found in Title 42 Section 412.3 of the Code of Federal Regulations <Mando Morales - Last Filed: 07/12/20 23:12> Patient admitted to: Observation <KentrellwilmaLucinaBud - Last Filed: 07/13/20 10:40> Patient History Date of Service: 07/12/20 Reason for admission: Weakness, fall, hypotension History of Present Illness: 69-year-old male with history of atrial fibrillation, coronary artery disease, hyperlipidemia, hypertension, myocardial infarction, cirrhosis of the liver presents emergency department for weakness, hypotension, fall. Patient was initiated on hospice on Wednesday07/06/2020 with son reports being there during intake process and notifying hospice staff that patient had an upcoming paracentesis scheduled for the following Wednesday. This was not reported to have been an issue at that time. Patient had his paracentesis on 07/10/2020, home health saw the patient on the next day 07/11/2020, patient mentioned that he had the paracentesis and reportedly hospice stated that since he had this procedure which was deemed does not aggressive therapy he had to have his hospice revoked and be discharged. Attempt was made to re-initiate but patient was scheduled for drain placement the following Wednesday and reportedly by the family hospice stated they would leave him off of hospice until after his procedure the following Wednesday. Patient lives by himself, has been becoming increasingly weak, having difficulty taking care of himself. Family visits every couple of days but nobody lives with him. Patient had a fall and the restroom today and was noted to be mildly hypotensive with blood pressures around 90/60 at home, patient was transported to the emergency department for further evaluation. Patient does appear dehydrated, worsening in chronic conditions including renal function and liver function. Case was discussed at length with hospitalist attending, [facility], patient's son and wsrjhsai-yc-pii. Explained to son and lkzxvozq-ec-pyr that there is not a real medical reason for admission at this time, family reports they are unable to care for her this evening but that they will be able to take him back to his home and stay with him tomorrow. Discussed case with the on-call hospice nurse who will leave message for intake nurse tomorrow to reach out to the family and hospitalist attending to re-initiate hospice care. Plan will be for discharge tomorrow morning. Patient does appear dry, will provide slow fluids overnight. - Past Medical/Surgical History Has patient received pneumonia vaccine in the past: Yes Diabetic: No -: Hypertension -: Atrial fibrillation not on chronic anticoagulation therapy -: CAD -: hypercholesterolemia -: Cirrhosis of the liver -: double bypass -: appendectomy -: defibrillator Psychosocial/ Personal History: Patient currently lives at home alone - Family History Father -: Heart disease Notes: aortic anuerysm Mother -: Other (see notes) Notes: heart attack - Social History Smoking Status: Never smoker Alcohol use: No CD- Drugs: No Caffeine use: No Place of Residence: Home <Mando Morales - Last Filed: 07/12/20 23:12> Date of Service: 07/13/20 <Bud Simms - Last Filed: 07/13/20 10:40> Allergies Penicillins Adverse Reaction (Severe, Verified 07/12/20 22:48) Anaphylaxis Home Medications: Donepezil [Aricept*] 10 mg PO DAILY 06/08/20 Multivitamin [Daily Multivitamin] 1 tab PO DAILY 06/08/20 Pantoprazole [Protonix Tab*] 40 mg PO DAILY 06/08/20 Doxycycline Hyclate [Vibramycin] 100 mg PO BID 7 Days #14 capsule 06/15/20 predniSONE [Prednisone] 20 mg PO SEECOM 30 Days #44 tablet 06/15/20 Review of Systems is unable to be obtained <Mando Morales - Last Filed: 07/12/20 23:12> Physical Examination - Physical Exam General: Alert, Oriented x3, Cachectic, Other HEENT: Other (Mucous membranes dry), Scleral icterus Neck: Supple Respiratory: Clear to auscultation bilaterally Cardiovascular: No edema, Normal S1 S2 Capillary refill: <2 Seconds Gastrointestinal: Soft and benign, No tenderness, No masses, No rebound, Ascites (Mild ascites noted) Musculoskeletal: No erythema, No tenderness, No warmth Integumentary: No tenderness/swelling, No erythema, No warmth Neurological: Normal speech, Normal tone, Sensation intact - Studies Laboratory Data (last 24 hrs) 07/12/20 18:05: PT 14.7 H, INR 1.25 07/12/20 18:05: WBC 18.1 H, Hgb 13.7, Hct 41.9, Plt Count 152 07/12/20 18:05: Sodium 132 L, Potassium 4.7, BUN 70 H, Creatinine 3.06 H, Glucose 229 H, Magnesium 2.7 H, Total Bilirubin 2.3 H, AST 147 H, ALT 140 H, Alkaline Phosphatase 290 H <Mando Morales - Last Filed: 07/12/20 23:12> - Studies Laboratory Data (last 24 hrs) 07/12/20 18:05: PT 14.7 H, INR 1.25 07/12/20 18:05: WBC 18.1 H, Hgb 13.7, Hct 41.9, Plt Count 152 07/12/20 18:05: Sodium 132 L, Potassium 4.7, BUN 70 H, Creatinine 3.06 H, Glucose 229 H, Magnesium 2.7 H, Total Bilirubin 2.3 H, AST 147 H, ALT 140 H, Alkaline Phosphatase 290 H Microbiology Data (last 24 hrs): 07/12/20 19:47 Blood - Blood Anaerobic Blood Culture - Final <Bud Simms - Last Filed: 07/13/20 10:40> Assessment and Plan - Plan Assessment and plan Patient with end-stage liver disease, not a candidate for transplant. Patient is hospice appropriate with significant decline and strength and health in the recent week. Plan will be for discharge home with family and to re-initiate hospice with [facility]. Patient will still need to have drain placement with Dr. Angelo next Wednesday, patient will likely need to be discharged and readmitted with hospice again at that time. Discussed case at length with family who are aware of situation and agreeable to plan. Discharge Plan: Home Plan to discharge in: 24 Hours - Advance Directives Does patient have a Living Will: Yes Does patient have a Durable POA for Healthcare: Yes - Code Status/Comfort Care Code Status Assessed: Yes (DNR) Critical Care: No Time Spent Managing Pts Care (In Minutes): 55 <Mando Morales - Last Filed: 07/12/20 23:12> - Plan Case discussed in detail with nurse practitioner. Agree with evaluation, assessment plan. Patient with worsening liver failure, renal failure related to chronic renal disease and end-stage cirrhosis not candidate for transplant. Case discussed in detail with son and [id number]-[id number]. Hospice will be arranged at home. I was able to get in contact with hospice today. They will follow up patient later today. Continue comfort measures. See discharge summary for details. <Bud Simms - Last Filed: 07/13/20 10:40>
[2020-07-12] MEDS ORDERED: MORPHINE 2 MG/ML SYR IV PRN (23:17)
[2020-07-12] MEDS ORDERED: NA CHLORIDE 0.9% 1,000 ML IV SCH (23:17)
[2020-07-12] MEDS ORDERED: ONDANSETRON 4 MG/2 ML VIAL IV PRN (23:17)
[2020-07-12] MEDS ORDERED: ACETAMINOPHEN 500 MG TAB PO PRN (23:17)
[2020-07-13 00:01] LABS: Urine Bacteria >50 /HPF (NONE SEEN); Urine Mucus 2+ /HPF (NONE SEEN)
[2020-07-13 00:55] VITALS: BMI 17.1
[2020-07-13 06:56] VITALS: TEMP 97.7
[2020-07-13 09:42] VITALS: BP 90/51
--- NOTE | 2020-07-13 10:25 | P.DS ---
Admission Date: 07/12/20 Discharge Date: 07/13/20 Primary Care Provider: none, on [facility] Disposition: HOSPICE-HOME Discharge Condition: FAIR Reason for Admission: Weakness, fall, hypotension Consultations: None Procedures: CT Head: FINDINGS: No intracranial hemorrhage, mass, edema or shift of mid-line structures. No acute cortical based infarction seen. No cortical edema or sulcal effacement. The 2.5 centimeter area of decreased attenuation is present in the left frontal lobe subcortical white matter. Overlying gyri show cortical thinning indicating a remote left frontal lobe CVA. Moderate atrophy changes are present. Ventricles are in proportion. No abnormal extra-axial fluid collections. Chronic ischemic changes appear mild. Mastoid air cells and visualized portions of the paranasal sinuses are clear. No acute bony findings. IMPRESSION: No intracranial hemorrhage is present. No acute cortical based infarction identified. 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 Chronic ischemic changes can mask nonhemorrhagic acute infarction. Chest x-ray: FINDINGS: No focal mass or consolidation. Interstitial pattern is prominent but not clearly different from comparison. Left subclavian defibrillator is in place. Sternotomy wires are noted. Heart and vasculature are normal. No measurable pleural effusion and no pneumothorax. No acute bony abnormality seen. No acute aortic findings suspected. IMPRESSION: No acute cardiopulmonary process. No suspicious change from comparison. Medical problem list: Hypotension likely volume depleted secondary to acute on chronic renal failure stage 4, worsening liver failure with history of alcoholic cirrhosis end-stage non candidate for transplant, and severe protein malnutrition End-stage alcoholic cirrhosis not a candidate for transplant CAD with history of atrial fibrillation not on chronic anti coagulation therapy, defibrillator, CABG GERD Vascular dementia Hyperlipidemia Brief History of Present Illness: 69-year-old male with history of atrial fibrillation, coronary artery disease, hyperlipidemia, hypertension, myocardial infarction, cirrhosis of the liver presents emergency department for weakness, hypotension, fall. Patient was initiated on hospice on Wednesday07/06/2020. Son and family report patient had a paracentesis. He had to revoked hospice in order to get this. Attempt to reinitiate hospice was made but hospice recommended to wait until he had a follow up procedure. During this time patient became very weak. [id number] all reports patient has declined significantly. Poor intake noted. Patient was admitted for further evaluation and treatment due to hypotension. Patient found with worsening renal, liver failure. Hospital Course: Patient was admitted for hypotension, fall. This is likely volume depletion. Secondary to acute on chronic renal failure stage 4, worsening liver failure with history of alcoholic cirrhosis end-stage not candidate for transplant, and severe protein malnutrition. Patient was hospitalized given IV fluids. Patient recently on hospice. Hospice is to be re-initiated. Case discussed in detail with son and itpwlkwh-wi-yyg who has been taking care patient. Mxtxttgf-ec-aom reports that the patient has been declining in health. That is the reason why patient has been with hospice. There has been a significant decline over the past several months. Advanced care directives and advanced care planning address in detail with the son and [id number]-drf. Patient is do not resuscitate. Both desire for hospice to be re-initiated. I was able to get in contact with [facility] hospice. They will re-initiate hospice today. Ifzubanz-xc-whe all understands the patient's current condition. She desires comfort measures at this time. Will recommend to continue with Aricept, multi vitamin, Protonix. Will recommend to discontinue pravastatin. Patient may complete recent medications doxycycline and prednisone. Will recommend comfort feeding. Recommend hospice to provide medication for pain or agitation. Both son and keaaicsq-jk-dcb need to prepare for worsening decline within the next 2 weeks especially if patient is not taking good oral intake. [facility] to re- initiate later today at home. If the patient still desires a procedure(paracentesis, placement of catheter for paracentesis) in the future, hospice should be revoked to have the procedure then re-initiated after the procedure. This was discussed in detail with family. At discharge blood pressure low but family reports this is his baseline. No evidence of sepsis at this time. Patient with other medical problems including CAD, atrial fibrillation not on chronic anti coagulation therapy, defibrillator placement, CABG, GERD, vascular dementia, and hyperlipidemia. As mentioned above will recommend to discontinue pravastatin. Need to consider discontinuation of all medications in the near future an continue with comfort measures only. This can be further determined by hospice. Advanced care planning-30 min. Vital Signs/Physical Exam: Temp Pulse Resp BP Pulse Ox 97.7 F 68 14 90/51 L 95 07/13/20 08:00 07/13/20 08:00 07/13/20 08:00 07/13/20 08:00 07/13/20 08:00 General: Alert, Cachectic, Demented, Other (Patient severely malnourished. Muscle wasting noted.) HEENT: Atraumatic, Other (Dry mucous membranes) Neck: Supple Respiratory: Clear to auscultation bilaterally, Normal air movement Cardiovascular: Normal pulses, Regular rate/rhythm Gastrointestinal: Normal bowel sounds, No tenderness, No masses, No rebound, No guarding, Ascites (Minimal ascites) Neurological: Normal speech, Normal strength at 5/5 x4 extr, Normal tone, Normal affect, Other (Patient appears very weak.) Laboratory Data at Discharge: WBC 18.1 K/uL (4.3-10.9) H 07/12/20 18:05 Hgb 13.7 g/dL (13.6-17.9) 07/12/20 18:05 Hct 41.9 % (39.6-49.0) 07/12/20 18:05 Plt Count 152 K/uL (152-406) 07/12/20 18:05 PT 14.7 SECONDS (9.5-12.5) H 07/12/20 18:05 INR 1.25 07/12/20 18:05 Sodium 132 mmol/L (136-145) L 07/12/20 18:05 Potassium 4.7 mmol/L (3.5-5.1) 07/12/20 18:05 BUN 70 mg/dL (7-18) H 07/12/20 18:05 Creatinine 3.06 mg/dL (0.55-1.3) H 07/12/20 18:05 Glucose 229 mg/dL (74-106) H 07/12/20 18:05 Magnesium 2.7 mg/dL (1.8-2.4) H 07/12/20 18:05 Total Bilirubin 2.3 mg/dL (0.2-1.0) H 07/12/20 18:05 AST 147 U/L (15-37) H 07/12/20 18:05 ALT 140 U/L (12-78) H 07/12/20 18:05 Alkaline Phosphatase 290 U/L (45-117) H 07/12/20 18:05 Home Medications: Donepezil [Aricept*] 10 mg PO DAILY 06/08/20 Multivitamin [Daily Multivitamin] 1 tab PO DAILY 06/08/20 Pantoprazole [Protonix Tab*] 40 mg PO DAILY 06/08/20 Doxycycline Hyclate [Vibramycin] 100 mg PO BID 7 Days #14 capsule 06/15/20 predniSONE [Prednisone] 20 mg PO SEECOM 30 Days #44 tablet 06/15/20 Patient Discharge Instructions: Patient was admitted for hypotension. This is likely volume depletion. Secondary to acute on chronic renal failure stage 4, worsening liver failure with history of alcoholic cirrhosis end-stage not candidate for transplant, and severe protein malnutrition. Patient was hospitalized given IV fluids. Patient recently on hospice. Hospice is to be re-initiated. Case discussed in detail with son and asaiukdo-yx-saw who has been taking care patient. Narubyek-wu-izl reports that the patient has been declining in health. That is the reason why patient has been with hospice. There has been a significant decline over the past several months. Advanced care directives and advanced care planning address in detail with the son and [id number]-ybq. Patient is do not resuscitate. Both desire for hospice to be re-initiated. I was able to get in contact with [facility] hospice. They will re- initiate hospice today. [id number]-od-mzk all understands the patient's current condition. She desires comfort measures at this time. Will recommend to continue with Aricept, multi vitamin, Protonix. Will recommend to discontinue pravastatin. Patient may complete recent medications doxycycline and prednisone. Will recommend comfort feeding. Recommend hospice to provide medication for pain or agitation. Both son and ihgfyxqn-po-abx need to prepare for worsening decline within the next 2 weeks especially if patient is not taking good oral intake. [facility] to re-initiate later today at home. If the patient still desires a procedure(paracentesis, placement of catheter for paracentesis) in the future, hospice should be revoked to have the procedure then re-initiated after the procedure. This was discussed in detail with family. Patient with other medical problems including CAD, atrial fibrillation not on chronic anti coagulation therapy, defibrillator placement, CABG, GERD, vascular dementia, and hyperlipidemia. As mentioned above will recommend to discontinue pravastatin. Need to consider discontinuation of all medications in the near future an continue with comfort measures only. This can be further determined by hospice. Diet: Regular Activity: Fall precautions Followup: NONE,NONE [Primary Care Provider] - Time spent managing pt's care (in minutes): 55
[2020-07-13 11:27] VITALS: O2SAT 93
== END 2020-07-13 11:43 | disposition hospice, home (50) ==
LOC: ER 17:14 → ERHOLD 21:37 → 4TH 22:56
PROVIDERS: ADMIT Family Medicine; ATTEND Family Medicine
DX: I95.9 Hypotension, unspecified (principal); N17.9 Acute kidney failure, unspecified; N18.4 Chronic kidney disease, stage 4 (severe); E43 Unspecified severe protein-calorie malnutrition; K70.30 Alcoholic cirrhosis of liver without ascites; I25.10 Atherosclerotic heart disease of native coronary artery without angina pectoris; Z20.828 Contact with and (suspected) exposure to other viral communicable diseases; I48.91 Unspecified atrial fibrillation; Z95.1 Presence of aortocoronary bypass graft; K21.9 Gastro-esophageal reflux disease without esophagitis; E78.5 Hyperlipidemia, unspecified; F01.50 Vascular dementia, unspecified severity, without behavioral disturbance, psychotic disturbance, mood disturbance, and anxiety; I25.2 Old myocardial infarction; Z66 Do not resuscitate; R94.31 Abnormal electrocardiogram [ECG] [EKG]
CPT/HCPCS: 96361; 93005; 87040; 87088; 85025; 87086; 80048; 36415; 82140; 83735; 85610; 80076; 83605; 84484; 84145; 83880; 70450; 71045; 51702; 96360; 99285; U0003; J7040; J7030; 81003; 81015